=== PATIENT | male | born 1955 | race Caucasian/White ===

== ENCOUNTER 2020-03-23 15:20 | Outpatient (REF) | payer MEDICARE, OTHER, SELFPAY ==
[2020-03-23 16:39] LABS: MANUAL DIFF FLAG NO
[2020-03-23 16:41] LABS: Basophils Percent Auto 0.4 % (0-2); Eosinophils Absolute Auto 0.1 X10*3/uL (0.0-0.4); Eosinophils Percent Auto 0.9 % (0-4); Hematocrit 48.5 % (42-52); Hemoglobin 15.9 g/dl (14.0-18.0); Imm Gran Abs Auto 0.06 X10*3/uL (0.00-0.03); Imm Gran Pct Auto 0.6 % (0.0-0.4); Lymphocytes Absolute Auto 3.6 X10*3/uL (1.2-4.9); Mean Corpuscular HGB Conc 32.8 g/dl (31.0-36.0); Mean Corpuscular Hemoglobin 29.2 pg (27.0-33.0); Mean Corpuscular Volume 89.2 fL (80-98); Mean Platelet Volume 10.5 fL (9.4-12.4); Monocytes Absolute Auto 0.9 X10*3/uL (0.1-1.2); Monocytes Percent Auto 8.3 % (2-11); Neutrophils Absolute Auto 5.7 X10*3/uL (2.0-8.3); Neutrophils Percent Auto 54.8 % (45-73); Platelet Count 189 X10*3/uL (160-400); Red Blood Count 5.44 X10*6/uL (4.60-5.80); Red Cell Distribution Width 13.5 % (11.0-16.0); White Blood Count 10.4 X10*3/uL (4.8-10.8)
[2020-03-23 17:06] LABS: Alanine Aminotransferase 24 U/L (0-40); Albumin Level 4.4 g/dL (3.5-5.0); Alkaline Phosphatase 87 U/L (39-117); Amylase 63 U/L (28-100); Anion Gap 15 (12-20); Aspartate Amino Transferase 18 U/L (5-37); Bilirubin Direct 0.3 mg/dL (0.0-0.5); Blood Urea Nitrogen 22 mg/dL (9-16); Calcium 9.3 mg/dL (8.4-10.2); Carbon Dioxide 22 mmol/L (22-29); Chloride 106 mmol/L (96-108); Estimated Glomerular Filt Rate 48; Glucose Random 93 mg/dL (60-115); Lipase 59 U/L (8-78); Potassium 4.5 mmol/l (3.3-5.1); Sodium 138 mmol/L (135-145)
[2020-03-25 14:21] LABS: Immunoglobulin A 267 mg/dL (70-320)
[2020-03-27 23:56] LABS: Endomysial IgA Antibody Negative (Negative)
[2020-03-28 14:58] LABS: Transglutaminase Ab IgG 2 U/mL; Transglutaminase IgA 1 U/mL
[2020-03-29 16:22] LABS: Gliadin Deamidated IgA Ab 7 Units; Gliadin Deamidated IgG Ab 3 Units
== END 2020-03-23 15:21 | disposition home or self-care (01) ==
LOC: HO.LAB 15:20
PROVIDERS: PCP Internal Medicine; Visit Provider Internal Medicine
DX: R10.84 Generalized abdominal pain (principal); R19.4 Change in bowel habit; R63.4 Abnormal weight loss
CPT/HCPCS: 36415; 80048; 80076; 82150; 82784; 83516; 83690; 85025; 86255; 86256

== ENCOUNTER 2020-03-29 12:16 | Day surgery (SDC) | payer MEDICARE, OTHER, SELFPAY ==
[2020-03-29 12:30] VITALS: BP 140/80; PULSE 68; RESP 16; TEMP 36.8; O2SAT 97; BMI 33.0
--- NOTE | 2020-03-29 12:31 | HO.ANESPROP2 ---
HPI - Anesthesia Eval Consult details Narrative: 65 yo male patient here for EGD PMFSH Past Medical History Medical History (Updated 03/29/20 @ 13:13 by Lesia Jarrett) Arthritis Fusion of lumbosacral spine GERD (gastroesophageal reflux disease) Gout HTN (hypertension) Hyperlipemia Kidney stone Myocardial infarct Tubular adenoma Family History Family history of problems with anesthesia: No Surgical History Surgical History (Updated 03/29/20 @ 13:08 by Lesia Jarrett) H/O colonoscopy H/O lithotripsy H/O spinal fusion History of total left knee replacement History of Problems with Anesthesia: No Social History Social History Smoking Status: Never smoker Second Hand Smoke Exposure: No Use of substances other than those prescribed or required for medical reasons: No Advance Directives: No Advance Directives Information Provided: No Advance Directives on File: No Meds Allergies Allergy/AdvReac Type Severity Reaction Status Date / Time Ehlivga-Poi-Awm Reductase Allergy Intermediate MUSCLE Unverified 01/15/20 14:41 Inhibitor WEAKNESS [[id number] REDUCTASE INHIBITOR] STATINS Allergy Unknown Weakness Uncoded 03/29/20 12:38 Home Medications Medication Instructions Recorded Confirmed Type colchicine [Colcrys] 1 tab PO BID 03/29/20 03/29/20 History losartan 1 tab PO DAILY 03/29/20 03/29/20 History metoprolol succinate 1 tab PO DAILY 03/29/20 03/29/20 History Exam Exam Date and Time: March 29, 2020 1231 Height,Weight and Vital Signs: Height 6 ft 1 in Weight 113.398 kg Vital Signs Temp Pulse Resp BP Pulse Ox 03/29/20 12:30 98.2 F 68 16 140/80 H 97 Airway Mallampati Class: II TM Dist: >3cm Neck ROM: Full Heart: RRR Lungs: CTAB Assessment and Plan Assessment Anesthesia Assessment: Anesthesia Plan Discussed and Chart Reviewed Final Anesthetic Review NPO: Yes ASA Class: III Final Preanesthetic Review: No Changes in Pt Med Stat, Meds/Allgs Chart Reviewed, Consent Obtained/Reviewed and Anes Risks/Benef Reviewed Patient Risk: Low Procedure Risk: Low Anesthetic Plan Anesthetic Plan: MAC: Disposition: Standard PACU
[2020-03-29] MEDS: Lactated Ringers 1,000 ML 100 ML IVCONT (12:39)
[2020-03-29 14:13] VITALS: BP 110/55; PULSE 56; RESP 18; TEMP 36.2; O2SAT 96
--- NOTE | 2020-03-29 14:16 | PM.OP ---
Brief Operative Note Date of Service: 03/29/20 Pre-op diagnosis: Abdominal pain Post-op diagnosis: other (Gastritis) Procedure: EGD with biopsy Surgeon: Yang Romano Anesthesia: MAC Estimated blood loss (mL): 3.0 Pathology: other (A. Gastric antrum) Condition: stable Disposition: PACU
[2020-03-29 14:35] VITALS: BP 104/63; PULSE 52; RESP 16; TEMP 36.2; O2SAT 95
--- NOTE | 2020-03-29 14:57 | HO.POSTANES ---
Post Anesthesia Evaluation Post Anesthesia Evaluation Vital Signs: Vital Signs Temp Pulse Resp BP Pulse Ox 03/29/20 14:35 97.1 F 52 16 104/63 95 03/29/20 14:13 97.1 F 56 18 110/55 L 96 03/29/20 12:30 98.2 F 68 16 140/80 H 97 Anesthesia: Monitored Mental Status: Awake Pain Control: Satisfactory Nausea/Vomiting: None Hydration: Adequate Anesthesia-Related Issues: No Anes. Related Issues
--- NOTE | 2020-03-29 15:56 | OP_ITS ---
SURGEON: Yang Romano MD INDICATIONS: The patient presents for evaluation of abdominal pain. Full consent has been obtained from him for this, including risks of bleeding and perforation. PREOPERATIVE DIAGNOSIS: Abdominal pain. POSTOPERATIVE DIAGNOSIS: PROCEDURE PERFORMED: Esophagogastroduodenoscopy with biopsy. ESTIMATED BLOOD LOSS: COMPLICATIONS: ANESTHESIA: Monitored anesthesia care. ASSISTANTS: SPECIMENS: POSTOPERATIVE DIAGNOSES: Abdominal pain, antral gastritis. DESCRIPTION OF PROCEDURE: The patient was placed in the left lateral decubitus position. The Olympus video gastroscope was passed in the posterior oropharynx and upper esophagus under direct vision. The scope was passed slowly into the distal esophagus. The gastroesophageal junction appeared normal at 39 cm. There was no sign of any esophagitis nor Nicholson's esophagus. There was no appreciable hiatal hernia. The scope was advanced to the pylorus and duodenum cannulated to the descending portion. The duodenum including the bulb appeared normal without mass or ulceration. Scope was withdrawn back in the stomach. The gastric antrum had some areas of erythema and a chronic appearing gastritis, but no ulceration nor mass. There was good peristalsis. The scope was retroflexed visualizing the proximal stomach carefully, which appeared normal, without any sign of mass or ulceration. The scope was straightened. Biopsies were obtained from the gastric antrum. The scope was withdrawn back into the esophagus. The esophageal mucosa appeared normal. The scope was withdrawn from the patient. He tolerated the procedure well and was returned to recovery area in stable condition. IMPRESSION: Antral gastritis. PLAN: The results of the biopsy will be checked. I shall start him on omeprazole 20 mg daily to see if that gives him any symptomatic relief. However, the findings are relatively minimal and I tend to doubt they are causing his symptoms. He is scheduled for an abdominal ultrasound next week to check the gallbladder. Depending upon those results and his clinical course, we may need to proceed with a CAT scan of the abdomen for further evaluation. He was advised not to use any aspirin and NSAIDs. This has been discussed with his . MD KATHY Lozada/KAI / [phone]
== END 2020-03-29 23:59 | disposition home or self-care (01) ==
PROVIDERS: PCP Internal Medicine; Visit Provider Internal Medicine
PROC: 0DJ08ZZ Inspection of Upper Intestinal Tract, Via Natural or Artificial Opening Endoscopic (ICD-10-PCS; CPT 43235; principal; 2020-03-29 13:30)
DX: K29.70 Gastritis, unspecified, without bleeding (principal); R63.4 Abnormal weight loss; R19.4 Change in bowel habit; I10 Essential (primary) hypertension; Z79.899 Other long term (current) drug therapy
CPT/HCPCS: 43239; 88305; 88342

== ENCOUNTER 2020-03-30 08:42 | Outpatient (REF) | payer MEDICARE, OTHER, SELFPAY ==
--- NOTE | 2020-03-30 | US_ITS ---
EXAMINATION: US ABDOMEN COMPLETE CLINICAL INFORMATION: Abdominal pain. COMPARISON: CT abdomen and pelvis 04/25/2018. Renal ultrasound 04/25/2018. Ultrasound abdomen 03/28/2010. TECHNIQUE: Real-time imaging of the abdominal viscera. Technically difficult study secondary to bowel gas. FINDINGS: PANCREAS: Normal. ABDOMINAL AORTA: The proximal, mid, and distal segments are normal in caliber. INFERIOR VENA CAVA: Visualized portions are normal. LIVER: The right hepatic lobe is enlarged measuring 18.1 cm. The liver contour is normal. There is diffuse hepatic increased echogenicity. No focal hepatic lesion. There is no intrahepatic biliary duct dilatation seen. GALLBLADDER: Normal. The gallbladder is physiologically distended without evidence of stones, sludge, polyps, wall thickening or pericholecystic fluid. COMMON BILE DUCT: Normal in caliber measuring 0.4 cm in diameter. RIGHT KIDNEY: There is normal cortical thickness. No hydronephrosis or renal calculi. The kidney measures 11.7 cm in maximum dimension. There is an anechoic cyst with central septation in midpole measuring 3.0 x 2.6 x 2.7 cm. A second slightly larger cyst measures 3.3 x 3.0 x 3.4 cm in midpole. LEFT KIDNEY: There is normal cortical thickness. No hydronephrosis or renal calculi. The kidney measures 13.5 cm in maximum dimension. There is a septated anechoic cyst measuring 5.8 x 5.3 x 6.0 cm. SPLEEN: Normal. The spleen measures 11.8 cm in maximum dimension. FREE FLUID: None. US/US abdomen complete IMPRESSION: Bilateral septated renal cysts and a simple cyst midpole right kidney. No echogenic renal stones or hydronephrosis. Mild hepatomegaly with diffuse hepatic steatosis. Rest of the abdomen ultrasound is unremarkable.
== END 2020-03-30 08:43 | disposition home or self-care (01) ==
LOC: HO.US 08:42
PROVIDERS: PCP Internal Medicine; Visit Provider Internal Medicine
DX: R10.84 Generalized abdominal pain (principal)
CPT/HCPCS: 76700

== ENCOUNTER 2020-04-01 15:00 | Outpatient (REF) | payer MEDICARE, OTHER, SELFPAY ==
--- NOTE | 2020-04-01 15:06 | CT_ITS ---
EXAMINATION: CT ABDOMEN AND PELVIS WITH CONTRAST CLINICAL INFORMATION: Upper abdominal pain. COMPARISON: CT abdomen and pelvis 04/25/2018. TECHNIQUE: Multidetector volumetric images were obtained from the superior aspect of the liver through the pubic symphysis following administration 85 mL of Omnipaque 350 intravenous contrast. Sagittal and coronal reformatted images were obtained on the technologist's workstation. Oral contrast: No This CT examination was performed using dose optimization techniques as appropriate, variously including the following: *Automated exposure control *Adjustment of mA and/or kV according to patient size (this includes techniques or standardized protocols for targeted exams where dose is matched to indication/reason for exam; i.e. extremities or head) *Use of iterative reconstruction technique DLP: 654 mGy-cm FINDINGS: LUNG BASES: The visualized lung bases are unremarkable. LIVER, GALLBLADDER, AND BILIARY TREE: The liver is normal in size, shape, and attenuation. No focal hepatic lesion or biliary ductal dilatation is present. The gallbladder is unremarkable with no evidence of radiopaque gallstones, gallbladder wall thickening, or obvious pericholecystic inflammatory changes. PANCREAS: Unremarkable. SPLEEN: Unremarkable. ADRENAL GLANDS: Unremarkable. KIDNEYS AND URETERS: The kidneys are normal in size, shape, and attenuation. Bilateral benign simple cysts are present. No solid renal masses are seen. There is a nonobstructing stone present in the left renal pelvis measuring 9 x 4 x 7 mm in size. The stone measures 500 Hounsfield units and is 14 cm from the posterior axillary line. No hydronephrosis, hydroureter, or other calculi seen. At the time of the prior study, an obstructing proximal left ureteral calculus was present which has obviously resolved. One smaller intrarenal calculus was present previously which also, presumably, has increased in size now residing in the renal pelvis. BLADDER: Unremarkable. GASTROINTESTINAL TRACT: The small and large bowel are unremarkable. The appendix is not seen. ABDOMINAL WALL: No significant hernia is appreciated. LYMPH NODES: No retroperitoneal lymphadenopathy. VASCULAR: No aneurysm is seen. The main larger left renal vein is retroaortic. PELVIC VISCERA: Prostate and seminal vesicles appear normal. OSSEOUS STRUCTURES: Degenerative changes in the lumbosacral spine most marked at L3-L4. There is fixation with posterior pedicular screws at L5-S1 with a small anterolisthesis present. CT/CT abdomen pelvis w con IMPRESSION: 9 x 4 x 7 mm nonobstructing calculus left renal pelvis. Other incidental findings as described above.
[2020-04-01] MEDS: iohexoL 350 MG/ML 100 ML INFUS..BTL IV (17:05)
== END 2020-04-01 15:01 | disposition home or self-care (01) ==
LOC: HO.CT 15:00
PROVIDERS: PCP Internal Medicine; Visit Provider Internal Medicine
DX: R10.10 Upper abdominal pain, unspecified (principal)
CPT/HCPCS: 74177; Q9967

== ENCOUNTER → 2020-04-05 09:39 | Outpatient (BNVA) | payer MEDICARE, OTHER, SELFPAY | PROVIDERS: PCP Internal Medicine; Referring Provider Internal Medicine; Visit Provider Internal Medicine Cardiovascular Disease | DX: I25.10 Atherosclerotic heart disease of native coronary artery without angina pectoris (principal); E78.5 Hyperlipidemia, unspecified; Z95.5 Presence of coronary angioplasty implant and graft | CPT/HCPCS: 99212 ==

== ENCOUNTER 2020-04-14 11:59 | Outpatient (REF) | payer MEDICARE, OTHER, SELFPAY ==
[2020-04-14 12:35] LABS: MANUAL DIFF FLAG NO
[2020-04-14 12:36] LABS: Basophils Percent Auto 0.5 % (0-2); Eosinophils Absolute Auto 0.2 X10*3/uL (0.0-0.4); Eosinophils Percent Auto 2.6 % (0-4); Hematocrit 48.8 % (42-52); Hemoglobin 15.9 g/dl (14.0-18.0); Imm Gran Abs Auto 0.06 X10*3/uL (0.00-0.03); Imm Gran Pct Auto 0.8 % (0.0-0.4); Lymphocytes Absolute Auto 2.8 X10*3/uL (1.2-4.9); Mean Corpuscular HGB Conc 32.6 g/dl (31.0-36.0); Mean Corpuscular Hemoglobin 28.8 pg (27.0-33.0); Mean Corpuscular Volume 88.4 fL (80-98); Monocytes Absolute Auto 0.9 X10*3/uL (0.1-1.2); Monocytes Percent Auto 10.9 % (2-11); Neutrophils Absolute Auto 3.9 X10*3/uL (2.0-8.3); Neutrophils Percent Auto 49.2 % (45-73); Platelet Count 209 X10*3/uL (160-400); Red Blood Count 5.52 X10*6/uL (4.60-5.80); Red Cell Distribution Width 13.5 % (11.0-16.0); White Blood Count 7.8 X10*3/uL (4.8-10.8)
[2020-04-14 12:42] LABS: Glucose Urine UA NEG (NEG); Leukocyte Esterase Urine NEG (NEG); Nitrite Urine NEG (NEG); Specific Gravity - Urine 1.015 (1.005-1.025); Urine Blood 3+ (NEG); Urine Ketones NEG (NEG); Urine Protein NEG (NEG-TRACE)
[2020-04-14 12:44] LABS: Appearance Urine CLEAR; Color Urine YELLOW
[2020-04-14 14:00] LABS: Amylase 56 U/L (28-100); C Reactive Protein 0.72 mg/dL (< or = 0.50); Lipase 60 U/L (8-78)
[2020-04-14 14:22] LABS: Erythrocyte Sedimentation Rate 8 MM/HR (0-15)
== END 2020-04-14 12:00 | disposition home or self-care (01) ==
LOC: HO.LAB 11:59
PROVIDERS: PCP Internal Medicine; Visit Provider Internal Medicine
DX: R10.33 Periumbilical pain (principal)
CPT/HCPCS: 36415; 81001; 82150; 83690; 85025; 85652; 86140; 87086

== ENCOUNTER 2020-06-10 16:28 | Emergency (ER) | payer MEDICARE, OTHER, SELFPAY ==
[2020-06-10 16:55] VITALS: BP 199/103; PULSE 78; RESP 18; TEMP 36.8; O2SAT 97; BMI 34.9
--- NOTE | 2020-06-10 17:36 | ED.WOUNDLAC ---
HPI - Wound/Laceration General Chief Complaint: Wound/Laceration Stated Complaint: Laceration Time Seen by Provider: 06/10/20 17:35 Related Data Home Medications Medication Instructions Recorded Confirmed colchicine [Colcrys] 1 tab PO BID 03/29/20 04/05/20 losartan 1 tab PO DAILY 03/29/20 03/29/20 metoprolol succinate 1 tab PO DAILY 03/29/20 03/29/20 losartan 100 mg tablet 100 mg PO DAILY 04/05/20 04/05/20 pantoprazole 20 mg tablet,delayed 20 mg PO DAILY 04/05/20 04/05/20 release Previous Rx's Medication Instructions Recorded evolocumab 140 mg/mL subcutaneous 140 mg SUBCUT Q2W 90 Days #7 ml 05/04/20 syringe Allergies Allergy/AdvReac Type Severity Reaction Status Date / Time Njaxbep-Zha-Zde Reductase Allergy Intermediate MUSCLE Unverified 01/15/20 14:41 Inhibitor WEAKNESS [RTBOOMA-RFT-FIT REDUCTASE INHIBITOR] STATINS Allergy Unknown Weakness Uncoded 03/29/20 12:38 [facility] Past Medical History Medical History (Updated 04/05/20 @ 10:15 by Forrest Ya MD) Arthritis Fusion of lumbosacral spine GERD (gastroesophageal reflux disease) Gout HTN (hypertension) Hyperlipemia Kidney stone Myocardial infarct Tubular adenoma Surgical History (Updated 03/29/20 @ 13:08 by Lesia Jarrett) H/O colonoscopy H/O lithotripsy H/O spinal fusion History of total left knee replacement Social History Social History Smoking Status: Never smoker Second Hand Smoke Exposure: No Advance Directives: No Advance Directives Information Provided: Yes Physical Exam Vital Signs: Vital Signs: Last Vital Signs Temp 98.2 F 06/10/20 16:55 Pulse 78 06/10/20 16:55 Resp 18 06/10/20 16:55 BP 199/103 H 06/10/20 16:55 Pulse Ox 97 06/10/20 16:55 Body Mass Index 34.9 Discharge Plan Discharge Prescriptions: No Action Repatha Syringe 140 mg/mL syringe 140 mg subcut Q2W 90 Days Qty: 7 RF: 3 losartan 50 mg tablet 1 tab PO DAILY RF: 0 metoprolol succinate 50 mg tablet extended release 24 hr 1 tab PO DAILY RF: 0 colchicine [Colcrys] 0.6 mg tablet 1 tab PO BID RF: 0 losartan 100 mg tablet 100 mg PO DAILY RF: 0 pantoprazole 20 mg tablet,delayed release (DR/EC) 20 mg PO DAILY RF: 0
[2020-06-10] MEDS: Lidocaine HCl 1 % MPF 5 ML VIAL SUBCUT (18:13)
[2020-06-10] MEDS: Lidocaine HCl 1 % MPF 5 ML VIAL EPIDURAL (18:13)
--- NOTE | 2020-06-10 18:45 | ED.WOUNDLAC ---
HPI - Wound/Laceration General Chief Complaint: Wound/Laceration Stated Complaint: Laceration Time Seen by Provider: 06/10/20 17:35 History of Present Illness HPI narrative: Patient complains of laceration to left hand sustained at home an hour ago when he was using a grinding wheel, he also complains of decreased sensation in the bottom part of his thumb but otherwise is able to use the thumb fully, last tetanus shot was many years ago, he has no weakness in the hand Related Data Home Medications Medication Instructions Recorded Confirmed colchicine [Colcrys] 1 tab PO BID 03/29/20 04/05/20 losartan 1 tab PO DAILY 03/29/20 03/29/20 metoprolol succinate 1 tab PO DAILY 03/29/20 03/29/20 losartan 100 mg tablet 100 mg PO DAILY 04/05/20 04/05/20 pantoprazole 20 mg tablet,delayed 20 mg PO DAILY 04/05/20 04/05/20 release Previous Rx's Medication Instructions Recorded evolocumab 140 mg/mL subcutaneous 140 mg SUBCUT Q2W 90 Days #7 ml 05/04/20 syringe Allergies Allergy/AdvReac Type Severity Reaction Status Date / Time Gllwztr-Jmb-Deb Reductase Allergy Intermediate MUSCLE Unverified 01/15/20 14:41 Inhibitor WEAKNESS [[id number]-QNI-NDL REDUCTASE INHIBITOR] STATINS Allergy Unknown Weakness Uncoded 03/29/20 12:38 Review of Systems Review of Systems: Left hand laceration with loss of sensation at the base of the thumb Are no fever no chills no weakness, no head injury no neck injury no head pain no neck pain no joint pain PMFSH Past Medical History Source: nursing notes reviewed Medical History (Updated 06/10/20 @ 18:52 by DARLENE Lantigua) Arthritis Fusion of lumbosacral spine GERD (gastroesophageal reflux disease) Gout HTN (hypertension) Hyperlipemia Kidney stone Myocardial infarct Tubular adenoma Surgical History (Updated 03/29/20 @ 13:08 by Lesia Jarrett) H/O colonoscopy H/O lithotripsy H/O spinal fusion History of total left knee replacement Social History Social History Smoking Status: Never smoker Second Hand Smoke Exposure: No Advance Directives: No Advance Directives Information Provided: Yes Physical Exam Vital Signs: Vital Signs: Last Vital Signs Temp 98.2 F 06/10/20 16:55 Pulse 78 06/10/20 16:55 Resp 18 06/10/20 16:55 BP 199/103 H 06/10/20 16:55 Pulse Ox 97 06/10/20 16:55 Body Mass Index 34.9 General appearance no acute distress, A&O x3, relaxed and cooperative Head normocephalic atraumatic Neck is supple Respiratory no distress Extremities the left hand at the base of the medial aspect of the left proximal thumb has a 1.5 cm laceration, there is decreased sensation in the medial aspect of the base of the thumb from the MCP to the D IP but the pad of the thumb has normal sensation in all tendon function on extension and flexion is normal Other extremities are normal Course Course Course Narrative: 1.5 cm laceration at the base of the left thumb on the left hand is cleansed and irrigated with normal saline, no foreign body observed Anesthesia was 8 cc of 1% lidocaine Closure was 65.0 nylon sutures Bleeding was controlled and bandage was applied Discharge Plan Discharge Clinical Impression: Laceration of finger of left hand Qualifiers: Encounter type: initial encounter Finger: thumb Damage to nail status: without damage Foreign body presence: with foreign body Qualified Code(s): S61.022A - Laceration with foreign body of left thumb without damage to nail, initial encounter Patient Disposition: Home, Self-Care Additional Instructions: Stitches should be removed in 7-10 days Because there was decreased sensation in the left thumb we recommend you follow with hand doctor, we will give you a name Return any time for redness, pain, swelling, discharge from the wound, red stripe up the arm, any sign of infection or any worse condition or concerns You get a tetanus shot today Prescriptions: No Action Repatha Syringe 140 mg/mL syringe 140 mg subcut Q2W 90 Days Qty: 7 RF: 3 losartan 50 mg tablet 1 tab PO DAILY RF: 0 metoprolol succinate 50 mg tablet extended release 24 hr 1 tab PO DAILY RF: 0 colchicine [Colcrys] 0.6 mg tablet 1 tab PO BID RF: 0 losartan 100 mg tablet 100 mg PO DAILY RF: 0 pantoprazole 20 mg tablet,delayed release (DR/EC) 20 mg PO DAILY RF: 0
== END 2020-06-10 19:13 | disposition home or self-care (01) ==
PROVIDERS: Emergency Provider Emergency Medicine; PCP Internal Medicine
DX: S61.012A Laceration without foreign body of left thumb without damage to nail, initial encounter (principal); S60.312A Abrasion of left thumb, initial encounter; M79.642 Pain in left hand; W26.9XXA Contact with unspecified sharp object(s), initial encounter; Y93.9 Activity, unspecified; Y92.009 Unspecified place in unspecified non-institutional (private) residence as the place of occurrence of the external cause; Y99.9 Unspecified external cause status
CPT/HCPCS: 12001; 90471; 90715; 99283; 99284

== ENCOUNTER → 2020-07-26 12:07 | Outpatient (BNVA) | payer MEDICARE, OTHER, SELFPAY | PROVIDERS: PCP Internal Medicine; Visit Provider Internal Medicine Cardiovascular Disease | DX: E78.2 Mixed hyperlipidemia (principal); I10 Essential (primary) hypertension | CPT/HCPCS: 99212 ==

== ENCOUNTER 2020-08-06 00:57 | Emergency (ER) | payer MEDICARE, OTHER, SELFPAY ==
--- NOTE | 2020-08-06 01:44 | ED.GENADULT ---
HPI - General Adult General Chief complaint: General Medical Stated complaint: HIGH BLOOD PRESSURE Time Seen by Provider: 08/06/20 01:44 Source: patient Mode of arrival: ambulatory History of Present Illness HPI narrative: This is a 65-year-old male who presents with concerns regarding elevated blood pressure and ?pounding heart?. Patient states that he received 2 cortisone shots earlier today when it shoulder and the other in his hip and then while attempting to go to sleep states that he felt like his heart was pounding, got up took his blood pressure and noted that it was over 190 systolic and that his heart rate was 101. He denies experiencing any dizziness, shortness of breath, chest pain/palpitations, nausea but does endorse a very mild headache without any visual or speech deficits. Related Data Home Medications Medication Instructions Recorded Confirmed metoprolol succinate 1 tab PO DAILY 03/29/20 07/26/20 losartan 100 mg tablet 100 mg PO DAILY 04/05/20 07/26/20 colchicine 0.6 mg tablet 0.6 mg PO BID PRN 07/26/20 07/26/20 Previous Rx's Medication Instructions Recorded evolocumab 140 mg/mL subcutaneous 140 mg SUBCUT Q2W #2 ml 07/26/20 pen injector omega-3 fatty acids 1,000 mg 1,000 mg PO DAILY #30 cap 07/26/20 capsule Allergies Allergy/AdvReac Type Severity Reaction Status Date / Time Sbpsona-Qft-Wqg Reductase Allergy Intermediate MUSCLE Verified 08/06/20 01:57 Inhibitor WEAKNESS [IFCAMSS-SLQ-QCX REDUCTASE INHIBITOR] STATINS Allergy Unknown Weakness Uncoded 08/06/20 01:57 Review of Systems Review of Systems: Pertinent positives and negatives as stated in HPI 10 point review of systems is otherwise negative. [facility] Past Medical History Source: nursing notes reviewed Medical History Arthritis Fusion of lumbosacral spine GERD (gastroesophageal reflux disease) Gout HTN (hypertension) Hyperlipemia Kidney stone Myocardial infarct Tubular adenoma Surgical History H/O colonoscopy H/O lithotripsy H/O spinal fusion History of total left knee replacement Social History Social History Alcohol intake: current Alcohol intake frequency: a few times a month Smoking Status: Never smoker Second Hand Smoke Exposure: No Use of substances other than those prescribed or required for medical reasons: No Advance Directives: No Physical Exam Vital Signs: Vital Signs: Last Vital Signs Temp 98.5 F 08/06/20 01:48 Pulse 93 08/06/20 02:13 Resp 16 08/06/20 02:13 BP 169/84 H 08/06/20 02:13 Pulse Ox 95 08/06/20 02:13 Body Mass Index 34.9 VITAL SIGNS: Reviewed. GENERAL: Well developed, well nourished, in no acute distress. HEAD: Normocephalic/atraumatic EYES: PERRLA, EOMI OROPHARYNX: no oral lesions noted, posterior pharynx clear NECK: Supple, no adenopathy LUNGS: Normal breath sounds. SpO2<94> CARDIOVASCULAR: Regular rate and rhythm without noted murmurs, no JVD or lower extremity edema. ABDOMEN: Soft, non-tender, non-distended with bowel sounds. NEUROLOGIC: Alert and oriented x 4. Course Course Course Narrative: This is a 65-year-old male with history and clinical presentation consistent with elevated blood pressure secondary to steroid shots earlier today. However, will evaluate for evidence of end-organ injury due to elevated blood pressure. On review of all investigations are no acute findings other than evidence steroid exposure with a left shift and elevated glucose. Discussed with the patient bedside and he was discharged home in stable condition. Medical Decision Making Lab Data Result diagrams: 08/06/20 02:14 08/06/20 02:14 Labs: Lab Results 08/06/20 08/06/20 08/06/20 Range/Units 02:14 02:14 02:18 WBC 10.0 (4.8-10.8) X10*3/uL RBC 5.49 (4.60-5.80) X10*6/uL Hgb 15.5 (14.0-18.0) g/dl Hct 46.9 (42-52) % MCV 85.4 (80-98) fL MCH 28.2 (27.0-33.0) pg MCHC 33.0 (31.0-36.0) g/dl RDW 13.6 (11.0-16.0) % Plt Count 188 (160-400) X10*3/uL MPV 10.1 (9.4-12.4) fL Immature Gran % (Auto) 0.4 (0.0-0.4) % Neut % (Auto) 84.9 H (45-73) % Lymph % (Auto) 10.9 L (20-40) % Ida % (Auto) 3.7 (2-11) % Eos % (Auto) 0.0 (0-4) % Baso % (Auto) 0.1 (0-2) % Lymph # (Auto) 1.1 L (1.2-4.9) X10*3/uL Ida # (Auto) 0.4 (0.1-1.2) X10*3/uL Eos # (Auto) 0.0 (0.0-0.4) X10*3/uL Baso # (Auto) 0.0 (0.0-0.2) X10*3/uL Abs Immat Gran (auto) 0.04 H (0.00-0.03) X10*3/uL Absolute Neuts (auto) 8.5 H (2.0-8.3) X10*3/uL Absolute Nucleated RBC 0.000 (0.0-0.012) X10*3/uL Nucleated RBC % (auto) 0.0 (0.0-0.2) /100WBC Sodium 138 (135-145) mmol/L Potassium 4.5 (3.3-5.1) mmol/L Chloride 109 H (96-108) mmol/L Carbon Dioxide 20 L (22-29) mmol/L Anion Gap 14 (12-20) BUN 24 H (9-16) mg/dL Creatinine 1.36 (0.5-1.4) mg/dL Estim Creat Clear Calc 71.5 Estimated GFR 52 Random Glucose 230 H D (60-115) mg/dL Calcium 9.4 (8.4-10.2) mg/dL Total Bilirubin 0.4 (0.0-1.0) mg/dL AST 17 (5-37) U/L ALT 21 (0-40) U/L Alkaline Phosphatase 99 (39-117) U/L Total Protein 7.0 (6.5-8.0) g/dL Albumin 4.3 (3.5-5.0) g/dL Urine Color YELLOW Urine Appearance CLEAR Urine pH 6.0 (5.0-8.0) Ur Specific Tina 1.025 (1.005-1.025) Urine Protein NEG (NEG-TRACE) MG/DL Urine Glucose (UA) 500 H (NEG) MG/DL Urine Ketones NEG (NEG) MG/DL Urine Blood 1+ H (NEG) Urine Nitrite NEG (NEG) Ur Leukocyte Esterase NEG (NEG) Urine RBC 5-9 H (0) /HPF Urine WBC 0-2 (0-4) /HPF Ur Squamous Epith Cells TRACE /LPF Urine Bacteria TRACE /LPF Urine Mucus TRACE /LPF ECG Data Attestation: I personally reviewed and interpreted this ECG as follows: Prior ECG tracings: available for review (04/25/2018 no acute changes on comparison.) Interpretation: Normal sinus rhythm, HR-91, no evidence of acute ischemia, OH/QRS/QTC are within normal limits. Discharge Plan Discharge Clinical Impression: Hypertension Qualifiers: Hypertension type: other secondary hypertension Qualified Code(s): I15.8 - Other secondary hypertension Patient Disposition: Home, Self-Care Instructions: Hypertension (ED) Additional Instructions: Resume all home medications as prescribed. Follow-up with your primary care provider in the next 2-3 days for re-evaluation of your blood pressure. Do not hesitate to return to the emergency department should you feel any acute worsening of symptoms. Prescriptions: No Action metoprolol succinate 50 mg tablet extended release 24 hr 1 tab PO DAILY RF: 0 colchicine [Colcrys] 0.6 mg tablet 0.6 mg PO BID PRNRF: 0 losartan 100 mg tablet 100 mg PO DAILY RF: 0 omega-3 fatty acids [Fish Oil Concentrate] 1,000 mg capsule 1,000 mg PO DAILY Qty: 30 RF: 3 Repatha SureClick 140 mg/mL pen injector 140 mg subcut Q2W Qty: 2 RF: 5 Referrals: Casimiro Thompson MD [Primary Care Provider] - 2 days (Re-evaluation after seen for elevated blood pressure after receiving cortisone shots.)
--- NOTE | 2020-08-06 01:46 | ECG_ITS ---
Test Reason : HTN Blood Pressure : / mmHG Vent. Rate : 091 BPM Atrial Rate : 091 BPM P-R Int : 186 ms QRS Dur : 094 ms QT Int : 372 ms P-R-T Axes : 033 001 019 degrees QTc Int : 457 ms Normal sinus rhythm Possible Inferior infarct , age undetermined Abnormal ECG When compared with ECG of 25-APR-2018 11:48, No significant changes seen Referred By: Gaviota Reno Electronically Signed By:NEGAR OCONNOR
[2020-08-06 01:48] VITALS: BP 161/79; PULSE 92; RESP 18; TEMP 36.9; O2SAT 94; BMI 34.9
[2020-08-06 02:13] VITALS: BP 169/84; PULSE 93; RESP 16; O2SAT 95
[2020-08-06 02:18] LABS: MANUAL DIFF FLAG NO
[2020-08-06 02:22] LABS: Basophils Percent Auto 0.1 % (0-2); Hematocrit 46.9 % (42-52); Hemoglobin 15.5 g/dl (14.0-18.0); Imm Gran Abs Auto 0.04 X10*3/uL (0.00-0.03); Imm Gran Pct Auto 0.4 % (0.0-0.4); Lymphocytes Absolute Auto 1.1 X10*3/uL (1.2-4.9); Lymphocytes Percent Auto 10.9 % (20-40); Mean Corpuscular Hemoglobin 28.2 pg (27.0-33.0); Mean Corpuscular Volume 85.4 fL (80-98); Mean Platelet Volume 10.1 fL (9.4-12.4); Monocytes Absolute Auto 0.4 X10*3/uL (0.1-1.2); Monocytes Percent Auto 3.7 % (2-11); Neutrophils Absolute Auto 8.5 X10*3/uL (2.0-8.3); Neutrophils Percent Auto 84.9 % (45-73); Platelet Count 188 X10*3/uL (160-400); Red Blood Count 5.49 X10*6/uL (4.60-5.80); Red Cell Distribution Width 13.6 % (11.0-16.0)
[2020-08-06 02:28] LABS: Glucose Urine UA 500 MG/DL (NEG); Leukocyte Esterase Urine NEG (NEG); Nitrite Urine NEG (NEG); Specific Gravity - Urine 1.025 (1.005-1.025); Urine Blood 1+ (NEG); Urine Ketones NEG (NEG); Urine Protein NEG (NEG-TRACE)
[2020-08-06 02:31] LABS: Appearance Urine CLEAR; Color Urine YELLOW
[2020-08-06 02:41] LABS: Bacteria Urine TRACE /LPF; Mucus Urine TRACE /LPF; Squamous Epithelial Cell Urine TRACE /LPF; WBC Urine 0-2 /HPF (0-4)
[2020-08-06 02:46] LABS: Alanine Aminotransferase 21 U/L (0-40); Albumin Level 4.3 g/dL (3.5-5.0); Alkaline Phosphatase 99 U/L (39-117); Anion Gap 14 (12-20); Aspartate Amino Transferase 17 U/L (5-37); Bilirubin Total 0.4 mg/dL (0.0-1.0); Blood Urea Nitrogen 24 mg/dL (9-16); Calcium 9.4 mg/dL (8.4-10.2); Carbon Dioxide 20 mmol/L (22-29); Chloride 109 mmol/L (96-108); Creatinine Clr Calc Pharmacy 71.5; Estimated Glomerular Filt Rate 52; Glucose Random 230 mg/dL (60-115); Potassium 4.5 mmol/L (3.3-5.1); Sodium 138 mmol/L (135-145)
[2020-08-06 03:18] VITALS: BP 148/77; PULSE 86; RESP 16; O2SAT 94
[2020-08-06] MEDS: Acetaminophen 325 MG TABLET 975 MG PO (03:20)
== END 2020-08-06 03:23 | disposition home or self-care (01) ==
PROVIDERS: Emergency Provider Student in an Organized Health Care Education/Training Program; PCP Internal Medicine
DX: I15.8 Other secondary hypertension (principal); T38.0X5A Adverse effect of glucocorticoids and synthetic analogues, initial encounter; Y92.019 Unspecified place in single-family (private) house as the place of occurrence of the external cause; E78.5 Hyperlipidemia, unspecified; Z87.442 Personal history of urinary calculi
CPT/HCPCS: 36415; 80053; 81001; 85025; 93005; 99283; 99284

== ENCOUNTER 2020-09-14 14:49 | Emergency (ER) | payer MEDICARE, OTHER, SELFPAY ==
--- NOTE | ~2020-09-14 | XR_ITS ---
EXAMINATION: XR CHEST CLINICAL INFORMATION: Chest pain COMPARISON: Previous chest x-ray October 2016 TECHNIQUE: Frontal view of the chest was obtained. FINDINGS: The cardiac and mediastinal contours are stable.. Lungs are clear. There is no pleural effusion or pneumothorax. There are degenerative changes of the spine. XR/XR chest 1V IMPRESSION: No evidence for acute disease in the chest.
--- NOTE | 2020-09-14 14:57 | ECG_ITS ---
Test Reason : DIZZNESS Blood Pressure : / mmHG Vent. Rate : 102 BPM Atrial Rate : 102 BPM P-R Int : 178 ms QRS Dur : 092 ms QT Int : 332 ms P-R-T Axes : 013 008 006 degrees QTc Int : 432 ms Sinus tachycardia Possible Left atrial enlargement Inferior infarct (cited on or before 06-AUG-2020) Abnormal ECG When compared with ECG of 06-AUG-2020 02:04, No significant change was found Referred By: Generic ED Physician Electronically Signed By:DOMINGA ALFORD MD
[2020-09-14 15:10] VITALS: BP 125/83; PULSE 115; RESP 18; TEMP 36.4; O2SAT 96; BMI 34.2
[2020-09-14 15:41] LABS: MANUAL DIFF FLAG NO
[2020-09-14 15:42] LABS: Basophils Percent Auto 0.4 % (0-2); Eosinophils Absolute Auto 0.1 X10*3/uL (0.0-0.4); Hematocrit 48.8 % (42-52); Imm Gran Abs Auto 0.13 X10*3/uL (0.00-0.03); Imm Gran Pct Auto 1.4 % (0.0-0.4); Lymphocytes Absolute Auto 2.6 X10*3/uL (1.2-4.9); Lymphocytes Percent Auto 26.8 % (20-40); Mean Corpuscular HGB Conc 32.8 g/dl (31.0-36.0); Mean Corpuscular Hemoglobin 28.5 pg (27.0-33.0); Mean Platelet Volume 9.9 fL (9.4-12.4); Monocytes Absolute Auto 1.1 X10*3/uL (0.1-1.2); Monocytes Percent Auto 11.4 % (2-11); Neutrophils Absolute Auto 5.7 X10*3/uL (2.0-8.3); Platelet Count 155 X10*3/uL (160-400); Red Blood Count 5.61 X10*6/uL (4.60-5.80); Red Cell Distribution Width 14.4 % (11.0-16.0); White Blood Count 9.6 X10*3/uL (4.8-10.8)
[2020-09-14 16:04] LABS: Anion Gap 15 (12-20); Blood Urea Nitrogen 28 mg/dL (9-16); Carbon Dioxide 21 mmol/L (22-29); Chloride 107 mmol/L (96-108); Creatinine Clr Calc Pharmacy 71.4; Estimated Glomerular Filt Rate 53; Glucose Random 98 mg/dL (60-115); Sodium 139 mmol/L (135-145)
[2020-09-14 16:11] LABS: Troponin-I High Sensitivity < 3.5 ng/L (<3.5-35.0)
--- NOTE | 2020-09-14 19:11 | ED.CHESTPAIN ---
HPI - Chest Pain General Chief Complaint: Chest Pain Stated Complaint: HIGH AND LOW BP RAPID HEART BEAT Time Seen by Provider: 09/14/20 19:11 Source: patient Mode of arrival: ambulatory Limitations: no limitations History of Present Illness HPI narrative: This is a 65-year-old male with history of hypertension and coronary artery disease came in for evaluation of fluctuation of his blood pressure for the past 3 days and also complaining of lightheadedness. Patient has been taking 100 mg of losartan and 50 mg of metoprolol for the past 2 months to control his blood pressure, lately patient been having lightheadedness, complained for the past 3 days intermittent left armpit pain, pain is confined to the armpit pain is not exertional, not associated with shortness of breath, nothing make it better, nothing make it worse. Patient held his blood pressure medication for 1 day and next day blood pressure went up to 150/95 which is high for the patient (patient normally runs in the 120s above 80s). Patient came in today for evaluation of that matter. Patient reportedly has been drinking enough hydration throughout the day. Related Data Home Medications Medication Instructions Recorded Confirmed metoprolol succinate 1 tab PO DAILY 03/29/20 07/26/20 losartan 100 mg tablet 100 mg PO DAILY 04/05/20 07/26/20 colchicine 0.6 mg tablet 0.6 mg PO BID PRN 07/26/20 07/26/20 Previous Rx's Medication Instructions Recorded evolocumab 140 mg/mL subcutaneous 140 mg SUBCUT Q2W #2 ml 07/26/20 pen injector omega-3 fatty acids 1,000 mg 1,000 mg PO DAILY #30 cap 07/26/20 capsule Allergies Allergy/AdvReac Type Severity Reaction Status Date / Time Hhrgsdu-Wcd-Qha Reductase Allergy Intermediate MUSCLE Verified 09/14/20 15:10 Inhibitor WEAKNESS [[id number] REDUCTASE INHIBITOR] STATINS Allergy Unknown Weakness Uncoded 08/06/20 01:57 Review of Systems Review of Systems: All other systems are reviewed and are negative Constitutional: Reports as per HPI and Reports no additional constitutional complaints Eyes: Reports as per HPI and Reports no additional eye complaints Reports system reviewed and no additional complaints, except as documented Cardiovascular: Reports as per HPI and Reports no additional cardiovascular complaints Respiratory: Reports as per HPI and Reports no additional respiratory complaints Gastrointestinal: Reports as per HPI and Reports no additional gastrointestinal complaints Genitourinary: Reports no additional female genitourinary complaints Musculoskeletal: Reports no additional musculoskeletal complaints Skin/Breast: Reports system reviewed and no additional complaints, except as docu Psychiatric: Reports no additional psychiatric complaints Endocrine: Reports no additional endocrine complaints Hematologic/Lymphatic: Reports no additional hematologic/lymphatic complaints Allergic/Immunologic: Reports no additional allergic/immunologic complaints Reports system reviewed and no additional complaints, except as documented and Reports Abnormal speech present [facility] Past Medical History Medical History Arthritis Fusion of lumbosacral spine GERD (gastroesophageal reflux disease) Gout HTN (hypertension) Hyperlipemia Kidney stone Myocardial infarct Tubular adenoma Surgical History H/O colonoscopy H/O lithotripsy H/O spinal fusion History of total left knee replacement Social History Social History Alcohol intake: current Alcohol intake frequency: a few times a month Smoking Status: Never smoker Second Hand Smoke Exposure: No Advance Directives: No Advance Directives Information Provided: Yes Physical Exam Vital Signs: Vital Signs: Last Vital Signs Temp 97.5 F 09/14/20 15:10 Pulse 115 H 09/14/20 15:10 Resp 18 09/14/20 15:10 BP 125/83 09/14/20 15:10 Pulse Ox 96 09/14/20 15:10 Body Mass Index 34.2 Vital signs have been reviewed as appeared to be correct. Blood pressure normal. Heart rate tachycardia. Respiration rate normal. Temperature normal. Oxygen saturation normal. Appearance: Alert. Oriented X3. No acute distress. Head: Normal external exam. Normocephalic. Atraumatic. No Rico signs noted. No raccoon eyes noted Eyes: PERRLA. EOMI. Conjunctiva and sclera normal. Eyelids normal. ENT: TM's Normal. Pharynx normal. Uvula midline. Moist mucous membranes. No trismus noted. No drooling noted. No muffled voice noted. Neck: Normal inspection. Neck supple. FROM. No adenopathy. Thyroid Normal. No meningeal signs. No neck mass noted. CVS: Normal heart rate and rhythm. Heart sound normal. No murmurs noted. Pulses normal throughout. Respiratory: No respiratory distress. Painless inspiration. Breath sounds normal. No wheezes/rales/rhonchi noted. Chest nontender. No accessory muscle usage noted or decreased air movement noted. Abdomen: Soft and nontender. Bowel sounds normal in all 4 quadrants. No distention noted. No organomegaly noted. No visible injury noted. Back: No CVA tenderness. Full range of motion noted. Skin: Skin warm and dry. Normal skin color. Normal skin turgor. No rashes/lesions/lacerations noted. Extremities: No lower extremity edema. Extremities exhibit normal range of motion. Extremities nontender. Neuro: Oriented X 3. No motor deficit. No sensory deficit. Reflexes normal. Course Course Course Narrative: Assessment and plan. 65-year-old male with history of hypertension taking losartan 100 mg daily and 50 mg of labetalol, patient lately been finding his blood pressure in the low side 100 over 70s at home (patient has a that his blood pressure machine has been very accurate), patient has been complaining of lightheadedness and generalized weakness, left armpit pain for the past 3 days his EKG showing no ischemic change and his high sensitive troponin is unremarkable. Labs were unremarkable. Chest x-ray is unremarkable. Patient was reassured with the normal labs/EKG/chest x-ray. Patient was instructed not to self manage his blood pressure and let his primary doctor to control his medication. Patient was advised to cut losartan in 50 mg instead of 100 and labetalol of 25 mg instead of 50 mg, and keep monitoring his blood pressure and keep p.o. hydration and report blood pressure records to his PCP. MDM - Chest Pain Lab Data Attestation: I reviewed the patient's lab results. Result diagrams: 09/14/20 15:35 09/14/20 15:35 Labs: Lab Results 09/14/20 09/14/20 09/14/20 Range/Units 15:35 15:35 15:35 WBC 9.6 (4.8-10.8) X10*3/uL RBC 5.61 (4.60-5.80) X10*6/uL Hgb 16.0 (14.0-18.0) g/dl Hct 48.8 (42-52) % MCV 87.0 (80-98) fL MCH 28.5 (27.0-33.0) pg MCHC 32.8 (31.0-36.0) g/dl RDW 14.4 (11.0-16.0) % Plt Count 155 L (160-400) X10*3/uL MPV 9.9 (9.4-12.4) fL Immature Gran % (Auto) 1.4 H (0.0-0.4) % Neut % (Auto) 59.0 (45-73) % Lymph % (Auto) 26.8 (20-40) % [place] % (Auto) 11.4 H (2-11) % Eos % (Auto) 1.0 (0-4) % Baso % (Auto) 0.4 (0-2) % Lymph # (Auto) 2.6 (1.2-4.9) X10*3/uL [place] # (Auto) 1.1 (0.1-1.2) X10*3/uL Eos # (Auto) 0.1 (0.0-0.4) X10*3/uL Baso # (Auto) 0.0 (0.0-0.2) X10*3/uL Abs Immat Gran (auto) 0.13 H (0.00-0.03) X10*3/uL Absolute Neuts (auto) 5.7 (2.0-8.3) X10*3/uL Absolute Nucleated RBC 0.000 (0.0-0.012) X10*3/uL Nucleated RBC % (auto) 0.0 (0.0-0.2) /100WBC Hold Blue Top SEE NOTE Sodium 139 (135-145) mmol/L Potassium 4.0 (3.3-5.1) mmol/L Chloride 107 (96-108) mmol/L Carbon Dioxide 21 L (22-29) mmol/L Anion Gap 15 (12-20) BUN 28 H (9-16) mg/dL Creatinine 1.35 (0.5-1.4) mg/dL Estim Creat Clear Calc 71.4 Estimated GFR 53 Random Glucose 98 D (60-115) mg/dL Calcium 9.0 (8.4-10.2) mg/dL Troponin I High Sens (<3.5-35.0) ng/L 09/14/20 Range/Units 15:35 WBC (4.8-10.8) X10*3/uL RBC (4.60-5.80) X10*6/uL Hgb (14.0-18.0) g/dl Hct (42-52) % MCV (80-98) fL MCH (27.0-33.0) pg MCHC (31.0-36.0) g/dl RDW (11.0-16.0) % Plt Count (160-400) X10*3/uL MPV (9.4-12.4) fL Immature Gran % (Auto) (0.0-0.4) % Neut % (Auto) (45-73) % Lymph % (Auto) (20-40) % [place] % (Auto) (2-11) % Eos % (Auto) (0-4) % Baso % (Auto) (0-2) % Lymph # (Auto) (1.2-4.9) X10*3/uL [place] # (Auto) (0.1-1.2) X10*3/uL Eos # (Auto) (0.0-0.4) X10*3/uL Baso # (Auto) (0.0-0.2) X10*3/uL Abs Immat Gran (auto) (0.00-0.03) X10*3/uL Absolute Neuts (auto) (2.0-8.3) X10*3/uL Absolute Nucleated RBC (0.0-0.012) X10*3/uL Nucleated RBC % (auto) (0.0-0.2) /100WBC Hold Blue Top Sodium (135-145) mmol/L Potassium (3.3-5.1) mmol/L Chloride (96-108) mmol/L Carbon Dioxide (22-29) mmol/L Anion Gap (12-20) BUN (9-16) mg/dL Creatinine (0.5-1.4) mg/dL Estim Creat Clear Calc Estimated GFR Random Glucose (60-115) mg/dL Calcium (8.4-10.2) mg/dL Troponin I High Sens < 3.5 (<3.5-35.0) ng/L Imaging Data Chest x-ray: Radiologist's impression: no evidence for acute disease in the chest. ECG Data ECG #1: Interpretation: Sinus tachycardia at 102 beats per minutes, normal axis deviation, normal intervals, Q-waves in leadIII. Discharge Plan Discharge Clinical Impression: Hypertension Qualifiers: Hypertension type: essential hypertension Qualified Code(s): I10 - Essential (primary) hypertension Patient Disposition: Home, Self-Care Instructions: Hypertension (ED) Additional Instructions: Cut losartan to 50 mg a day instead of 100 mg. Cot metoprolol to 25 mg a day instead of 50 mg a day. Keep recording your blood pressure readings and report them to your PCP. Prescriptions: No Action metoprolol succinate 50 mg tablet extended release 24 hr 1 tab PO DAILY RF: 0 colchicine [Colcrys] 0.6 mg tablet 0.6 mg PO BID PRNRF: 0 losartan 100 mg tablet 100 mg PO DAILY RF: 0 omega-3 fatty acids [Fish Oil Concentrate] 1,000 mg capsule 1,000 mg PO DAILY Qty: 30 RF: 3 Repatha SureClick 140 mg/mL pen injector 140 mg subcut Q2W Qty: 2 RF: 5 Referrals: Casimiro Thompson MD [Primary Care Provider] - 2 days
== END 2020-09-14 19:45 | disposition home or self-care (01) ==
PROVIDERS: Emergency Provider Emergency Medicine; PCP Internal Medicine
DX: I10 Essential (primary) hypertension (principal); R00.0 Tachycardia, unspecified; R42 Dizziness and giddiness; E78.5 Hyperlipidemia, unspecified
CPT/HCPCS: 36415; 71045; 80048; 84484; 85025; 93005; 99283

== ENCOUNTER → 2020-11-24 08:58 | Outpatient (BNVA) | payer MEDICARE, OTHER, SELFPAY | PROVIDERS: PCP Internal Medicine; Visit Provider Internal Medicine Cardiovascular Disease | DX: I10 Essential (primary) hypertension (principal); R06.00 Dyspnea, unspecified; E78.2 Mixed hyperlipidemia | CPT/HCPCS: 99212 ==

== ENCOUNTER 2020-12-30 10:06 | Outpatient (REF) | payer MEDICARE, OTHER, SELFPAY ==
[2020-12-30 10:56] LABS: Hematocrit 48.6 % (42-52); Hemoglobin 15.9 g/dl (14.0-18.0); Mean Corpuscular HGB Conc 32.7 g/dl (31.0-36.0); Mean Corpuscular Hemoglobin 29.7 pg (27.0-33.0); Mean Corpuscular Volume 90.7 fL (80-98); Mean Platelet Volume 10.3 fL (9.4-12.4); Platelet Count 215 X10*3/uL (160-400); Red Blood Count 5.36 X10*6/uL (4.60-5.80); Red Cell Distribution Width 13.2 % (11.0-16.0); White Blood Count 9.1 X10*3/uL (4.8-10.8)
[2020-12-30 11:03] LABS: Prothrombin Time 11.8 SEC (9.9-13.0)
[2020-12-30 11:19] LABS: Anion Gap 13 (12-20); Blood Urea Nitrogen 26 mg/dL (9-16); Carbon Dioxide 25 mmol/L (22-29); Chloride 107 mmol/L (96-108); Cholesterol 160 mg/dL; Estimated Glomerular Filt Rate > 60; Glucose Random 93 mg/dL (60-115); HDL Cholesterol 37 mg/dL; LDL Cholesterol Calculated 89 mg/dl; Potassium 4.8 mmol/L (3.3-5.1); Sodium 140 mmol/L (135-145); Triglycerides 170 mg/dL
== END 2020-12-30 10:07 | disposition home or self-care (01) ==
LOC: HO.LAB 10:06
PROVIDERS: PCP Internal Medicine; Visit Provider Internal Medicine Cardiovascular Disease
DX: R06.00 Dyspnea, unspecified (principal); E78.2 Mixed hyperlipidemia
CPT/HCPCS: 36415; 80048; 80061; 85027; 85610

== ENCOUNTER → 2021-01-24 10:43 | Outpatient (BNVA) | payer MEDICARE, OTHER, SELFPAY | PROVIDERS: PCP Internal Medicine; Referring Provider Internal Medicine; Visit Provider Internal Medicine Cardiovascular Disease | DX: I20.8 Other forms of angina pectoris (principal); Z98.61 Coronary angioplasty status | CPT/HCPCS: 99212 ==

== ENCOUNTER 2021-02-25 10:09 | Outpatient (REF) | payer MEDICARE, OTHER, SELFPAY ==
[2021-02-25 12:10] LABS: Alanine Aminotransferase 25 U/L (0-40); Alkaline Phosphatase 88 U/L (39-117); Amylase 76 U/L (28-100); Aspartate Amino Transferase 15 U/L (5-37); Bilirubin Direct 0.4 mg/dL (0.0-0.5); Bilirubin Total 1.2 mg/dL (0.0-1.0); Blood Urea Nitrogen 31 mg/dL (9-16); Estimated Glomerular Filt Rate 47; Lipase 69 U/L (8-78); Total Protein 6.6 g/dL (6.5-8.0)
== END 2021-02-25 10:10 | disposition home or self-care (01) ==
LOC: HO.LAB 10:09
PROVIDERS: PCP Internal Medicine; Visit Provider Internal Medicine
DX: R10.84 Generalized abdominal pain (principal)
CPT/HCPCS: 36415; 80076; 82150; 82565; 83690; 84520

== ENCOUNTER 2021-03-02 06:22 | Outpatient (REF) | payer MEDICARE, OTHER, SELFPAY ==
--- NOTE | ~2021-03-02 | CT_ITS ---
EXAMINATION: CT ABDOMEN AND PELVIS WITH CONTRAST CLINICAL INFORMATION: Abdominal pain COMPARISON: 04/01/2020 TECHNIQUE: Multidetector volumetric images were obtained from the superior aspect of the liver through the pubic symphysis following administration 85 mL of Omnipaque 350 intravenous contrast. Sagittal and coronal reformatted images were obtained on the technologist's workstation. Oral contrast: No This CT examination was performed using dose optimization techniques as appropriate, variously including the following: *Automated exposure control *Adjustment of mA and/or kV according to patient size (this includes techniques or standardized protocols for targeted exams where dose is matched to indication/reason for exam; i.e. extremities or head) *Use of iterative reconstruction technique DLP: 664 mGy-cm FINDINGS: LUNG BASES: Minimal left basilar atelectasis. Visualized cardiac structures are unremarkable. LIVER, GALLBLADDER, AND BILIARY TREE: The liver is normal in size, shape, and attenuation. No focal hepatic lesion or biliary ductal dilatation is present. The gallbladder is unremarkable with no evidence of radiopaque gallstones, gallbladder wall thickening, or obvious pericholecystic inflammatory changes. PANCREAS: Unremarkable. SPLEEN: Unremarkable. ADRENAL GLANDS: Unremarkable. KIDNEYS AND URETERS: The kidneys are normal in size, shape, and attenuation. No hydronephrosis or hydroureter. There is a 1.2 x 0.4 cm calculus in the left renal pelvis. This measures 530 Hounsfield units and is positioned 14.5 cm from the posterior axillary line. This is in a similar position to the previous CT. There are multiple bilateral simple renal cysts, which are similar to prior. The largest is seen exophytic at the midpole of the left kidney measuring 5.6 cm. No follow-up imaging recommended. BLADDER: Unremarkable. GASTROINTESTINAL TRACT: The stomach is unremarkable. Normal caliber of the small bowel. There is no obstruction. No colonic wall thickening or inflammatory change. Scattered diverticulosis without diverticulitis. No free air or free fluid. ABDOMINAL WALL: No significant hernia is appreciated. LYMPH NODES: Normal. VASCULAR: Normal caliber aorta with mild atherosclerotic calcification. Circumaortic left renal vein. PELVIC VISCERA: The prostate and seminal vesicles are unremarkable. OSSEOUS STRUCTURES: No acute or suspicious osseous abnormality. Degenerative changes of the spine which are greatest at L3-L4. Posterior fusion hardware at L5-S1. CT/CT abdomen pelvis w con IMPRESSION: No acute findings of the abdomen or pelvis. Nonobstructing calculus in the left renal pelvis, similar to prior positioning.
[2021-03-02] MEDS: iohexoL 350 MG/ML 100 ML INFUS..BTL IV (09:57)
[2021-03-02] MEDS: Barium Sulfate Oral (Berry) 450 ML ORAL.SUSP 900 ML PO (11:13)
== END 2021-03-02 06:23 | disposition home or self-care (01) ==
LOC: HO.CT 06:22
PROVIDERS: Visit Provider Internal Medicine
DX: R10.84 Generalized abdominal pain (principal)
CPT/HCPCS: 74177; Q9967

== ENCOUNTER 2021-04-05 07:23 | Outpatient (REF) | payer MEDICARE, OTHER, SELFPAY | END 2021-04-05 07:24 | disposition home or self-care (01) | LOC: HO.LAB 07:23 | PROVIDERS: PCP Internal Medicine; Visit Provider Internal Medicine | DX: Z20.822 Contact with and (suspected) exposure to COVID-19 (principal) | CPT/HCPCS: C9803; U0003; U0005 ==

== ENCOUNTER 2021-04-11 08:12 | Outpatient (REF) | payer MEDICARE, OTHER, SELFPAY ==
[2021-04-11 08:50] LABS: COVID-19 Test Negative (Negative); IDNOW Serial# 16C4AD1C
== END 2021-04-11 08:13 | disposition home or self-care (01) ==
LOC: HO.LAB 08:12
PROVIDERS: Visit Provider Internal Medicine
DX: Z20.822 Contact with and (suspected) exposure to COVID-19 (principal)
CPT/HCPCS: 36415; 87635; C9803

== ENCOUNTER 2021-04-27 06:35 | Outpatient (REF) | payer MEDICARE, OTHER, SELFPAY ==
[2021-04-27 06:59] LABS: MANUAL DIFF FLAG NO
[2021-04-27 07:07] LABS: Basophils Percent Auto 0.4 % (0-2); Eosinophils Absolute Auto 0.2 X10*3/uL (0.0-0.4); Eosinophils Percent Auto 2.4 % (0-4); Hematocrit 50.6 % (42.0-52.0); Hemoglobin 16.2 g/dl (14.0-18.0); Imm Gran Abs Auto 0.07 X10*3/uL (0.00-0.03); Imm Gran Pct Auto 0.8 % (0.0-0.4); Lymphocytes Percent Auto 35.3 % (20-40); Mean Corpuscular Hemoglobin 28.1 pg (27.0-33.0); Mean Corpuscular Volume 87.8 fL (80.0-98.0); Monocytes Absolute Auto 0.7 X10*3/uL (0.1-1.2); Monocytes Percent Auto 8.1 % (2-11); Neutrophils Absolute Auto 4.5 x10*3/uL (2.0-8.3); Platelet Count 181 X10*3/uL (160-400); Red Blood Count 5.76 X10*6/uL (4.60-5.80); Red Cell Distribution Width 14.2 % (11.0-16.0); White Blood Count 8.5 X10*3/uL (4.8-10.8)
[2021-04-27 07:33] LABS: Alanine Aminotransferase 31 U/L (0-40); Albumin Level 4.3 g/dL (3.5-5.0); Alkaline Phosphatase 84 U/L (39-117); Anion Gap 13 (12-20); Aspartate Amino Transferase 21 U/L (5-37); Bilirubin Total 1.4 mg/dL (0.0-1.0); Blood Urea Nitrogen 17 mg/dL (9-16); Calcium 9.8 mg/dL (8.4-10.2); Carbon Dioxide 26 mmol/L (22-29); Chloride 106 mmol/L (96-108); Cholesterol 117 mg/dL; Estimated Glomerular Filt Rate 53; Glucose Random 96 mg/dL (60-115); HDL Cholesterol 37 mg/dL; LDL Cholesterol Calculated 46 mg/dl; Potassium 4.6 mmol/L (3.3-5.1); Sodium 140 mmol/L (135-145); Total Protein 6.7 g/dL (6.5-8.0); Triglycerides 173 mg/dL
[2021-04-27 07:45] LABS: Appearance Urine CLEAR; Color Urine YELLOW; Glucose Urine UA NEG (NEG); Leukocyte Esterase Urine NEG (NEG); Nitrite Urine NEG (NEG); Specific Gravity - Urine 1.025 (1.005-1.025); Urine Blood TRACE (NEG); Urine Ketones NEG (NEG); Urine Protein NEG (NEG-TRACE)
[2021-04-27 07:55] LABS: RBC Urine 0-2 /HPF (0); WBC Urine 0-2 /HPF (0-4)
[2021-04-27 07:56] LABS: Squamous Epithelial Cell Urine TRACE /LPF
[2021-04-27 08:04] LABS: Vitamin B12 222 pg/mL (200-900)
[2021-04-27 08:08] LABS: Estimated Average Glucose 114 mg/dL; Hemoglobin A1c % 5.6 %
== END 2021-04-27 06:36 | disposition home or self-care (01) ==
LOC: HO.LAB 06:35
PROVIDERS: PCP Internal Medicine; Visit Provider Internal Medicine
DX: E78.00 Pure hypercholesterolemia, unspecified (principal); I25.10 Atherosclerotic heart disease of native coronary artery without angina pectoris; I10 Essential (primary) hypertension; R35.1 Nocturia; R73.01 Impaired fasting glucose
CPT/HCPCS: 36415; 80053; 80061; 81001; 82607; 83036; 84550; 85025; 87086

== ENCOUNTER → 2021-04-28 14:12 | Outpatient (BNVA) | payer MEDICARE, OTHER, SELFPAY | PROVIDERS: PCP Internal Medicine; Referring Provider Internal Medicine; Visit Provider Internal Medicine Cardiovascular Disease | DX: R10.9 Unspecified abdominal pain (principal); I20.8 Other forms of angina pectoris; Z98.61 Coronary angioplasty status; Z79.82 Long term (current) use of aspirin | CPT/HCPCS: 99212 ==

== ENCOUNTER 2021-05-21 14:27 | Emergency (ER) | payer MEDICARE, OTHER, SELFPAY ==
[2021-05-21 14:30] VITALS: BP 181/101; PULSE 103; RESP 19; TEMP 36.6; O2SAT 98; BMI 33.0
--- NOTE | 2021-05-21 14:36 | ECG_ITS ---
Test Reason : CHES[place]IN Blood Pressure : / mmHG Vent. Rate : 101 BPM Atrial Rate : 101 BPM P-R Int : 170 ms QRS Dur : 090 ms QT Int : 346 ms P-R-T Axes : 021 023 016 degrees QTc Int : 448 ms Sinus tachycardia Inferior infarct (cited on or before 06-AUG-2020) Abnormal ECG When compared with ECG of 14-SEP-2020 15:29, No significant change was found Referred By: Generic ED Physician Electronically Signed By:Forrest Ya
[2021-05-21 14:58] LABS: MANUAL DIFF FLAG NO
[2021-05-21 14:59] LABS: Basophils Absolute Auto 0.1 X10*3/uL (0.0-0.2); Basophils Percent Auto 0.7 % (0-2); Eosinophils Absolute Auto 0.2 X10*3/uL (0.0-0.4); Eosinophils Percent Auto 2.3 % (0-4); Hematocrit 49.2 % (42.0-52.0); Hemoglobin 16.4 g/dl (14.0-18.0); Imm Gran Abs Auto 0.06 X10*3/uL (0.00-0.03); Imm Gran Pct Auto 0.7 % (0.0-0.4); Lymphocytes Absolute Auto 2.6 X10*3/uL (1.2-4.9); Lymphocytes Percent Auto 29.1 % (20-40); Mean Corpuscular HGB Conc 33.3 g/dl (31.0-36.0); Mean Corpuscular Hemoglobin 29.2 pg (27.0-33.0); Mean Corpuscular Volume 87.5 fL (80.0-98.0); Mean Platelet Volume 9.4 fL (9.4-12.4); Monocytes Absolute Auto 0.6 X10*3/uL (0.1-1.2); Monocytes Percent Auto 6.9 % (2-11); Neutrophils Absolute Auto 5.4 x10*3/uL (2.0-8.3); Neutrophils Percent Auto 60.3 % (45-73); Platelet Count 183 X10*3/uL (160-400); Red Blood Count 5.62 X10*6/uL (4.60-5.80); Red Cell Distribution Width 14.4 % (11.0-16.0)
[2021-05-21 15:20] LABS: Anion Gap 14 (12-20); Blood Urea Nitrogen 20 mg/dL (9-16); Calcium 9.7 mg/dL (8.4-10.2); Carbon Dioxide 21 mmol/L (22-29); Chloride 109 mmol/L (96-108); Creatinine Clr Calc Pharmacy 67.6; Estimated Glomerular Filt Rate 51; Glucose Random 122 mg/dL (60-115); Potassium 4.4 mmol/L (3.3-5.1); Sodium 140 mmol/L (135-145)
[2021-05-21 15:28] LABS: Troponin-I High Sensitivity 4.2 ng/L (<3.5-35.0)
[2021-05-21 17:31] VITALS: BP 154/88; PULSE 100; O2SAT 95
== END 2021-05-21 19:54 | disposition left against medical advice (07) ==
PROVIDERS: Emergency Provider Emergency Medicine; PCP Internal Medicine
DX: R00.0 Tachycardia, unspecified (principal); I10 Essential (primary) hypertension; E78.5 Hyperlipidemia, unspecified; I25.2 Old myocardial infarction
CPT/HCPCS: 36415; 80048; 84484; 85025; 93005; 99283

== ENCOUNTER 2021-06-01 10:21 | Outpatient (REF) | payer MEDICARE, OTHER, SELFPAY ==
[2021-06-01 12:10] LABS: Blood Urea Nitrogen 30 mg/dL (9-16); Estimated Glomerular Filt Rate 58
== END 2021-06-01 10:22 | disposition home or self-care (01) ==
LOC: HO.LAB 10:21
PROVIDERS: PCP Internal Medicine; Referring Provider Internal Medicine; Visit Provider Surgery
DX: R10.9 Unspecified abdominal pain (principal); G89.29 Other chronic pain
CPT/HCPCS: 36415; 82565; 84520; 99202

== ENCOUNTER 2021-06-16 08:13 | Outpatient (REF) | payer MEDICARE, OTHER, SELFPAY ==
--- NOTE | ~2021-06-16 | CT_ITS ---
EXAMINATION: CT ABDOMEN AND PELVIS WITH CONTRAST CLINICAL INFORMATION: Abdominal pain COMPARISON: CT abdomen and pelvis 03/02/2021 TECHNIQUE: Multidetector volumetric images were obtained from the superior aspect of the liver through the pubic symphysis following administration 85 mL of Omnipaque 350 intravenous contrast. Sagittal and coronal reformatted images were obtained on the technologist's workstation. Oral contrast: No This CT examination was performed using dose optimization techniques as appropriate, variously including the following: *Automated exposure control *Adjustment of mA and/or kV according to patient size (this includes techniques or standardized protocols for targeted exams where dose is matched to indication/reason for exam; i.e. extremities or head) *Use of iterative reconstruction technique DLP: 582 mGy-cm FINDINGS: LUNG BASES: The lung bases are clear. The heart size is normal. LIVER, GALLBLADDER, AND BILIARY TREE: The liver is normal in size, shape, and attenuation. No focal hepatic lesion or biliary ductal dilatation is present. The gallbladder is unremarkable with no evidence of radiopaque gallstones, gallbladder wall thickening, or obvious pericholecystic inflammatory changes. PANCREAS: Unremarkable. SPLEEN: Unremarkable. ADRENAL GLANDS: Unremarkable. KIDNEYS AND URETERS: The kidneys are normal in size, shape, and attenuation. No hydronephrosis, hydroureter, or calculi seen. No perinephric stranding. There are bilateral renal cysts. There is a non-enhancing 5.5 cm partially exophytic midpole, left kidney, and a partially exophytic 2.7 cm and 3.2 cm cysts in lower pole of the left kidney. BLADDER: Unremarkable. GASTROINTESTINAL TRACT: The small and large bowel are unremarkable. The appendix is unremarkable. ABDOMINAL WALL: There is no evidence of hernia. LYMPH NODES: Normal. VASCULAR: Unremarkable. PELVIC VISCERA: The prostate gland is unremarkable. No free fluid. No abnormal pelvic lymph nodes or hernia. OSSEOUS STRUCTURES: There is a L5-S1 disc fusion with posterior hardware in place. Mild loss of L4-L5 disc level with endplate sclerosis seen. No aggressive lytic process visualized. CT/CT abdomen pelvis w con IMPRESSION: 1. Bilateral renal cysts. No echogenic renal calculi or hydronephrosis. 2. Mild constipation without obstruction. 3. L5-S1 fusion with posterior hardware in place. Fleischner guidelines were followed.
[2021-06-16] MEDS: iohexoL 350 MG/ML 100 ML INFUS..BTL 85 ML IV (09:07)
== END 2021-06-16 08:14 | disposition home or self-care (01) ==
LOC: HO.CT 08:13
PROVIDERS: Visit Provider Surgery
DX: R10.9 Unspecified abdominal pain (principal)
CPT/HCPCS: 74177; Q9967

== ENCOUNTER → 2021-07-04 13:00 | Outpatient (BNVA) | payer MEDICARE, OTHER, SELFPAY | PROVIDERS: PCP Internal Medicine; Referring Provider Internal Medicine; Visit Provider Surgery | DX: R10.9 Unspecified abdominal pain (principal) | CPT/HCPCS: 99212 ==

== ENCOUNTER → 2021-07-27 13:17 | Outpatient (BNVA) | payer MEDICARE, OTHER, SELFPAY | PROVIDERS: PCP Internal Medicine; Referring Provider Internal Medicine; Visit Provider Internal Medicine Cardiovascular Disease | DX: R10.9 Unspecified abdominal pain (principal); Z98.61 Coronary angioplasty status | CPT/HCPCS: 99212 ==

== ENCOUNTER 2021-10-17 09:11 | Day surgery (SDC) | payer MEDICARE, OTHER, SELFPAY ==
[2021-10-11 12:44] VITALS: BMI 34.9
--- NOTE | 2021-10-13 13:21 | HO.ANESPROP2 ---
Documented by User: Arina Ramsey NP 10/13/21 13:27 HPI - Anesthesia Eval Consult details Narrative: 66yo M for Upper Endoscopy and Colonoscopy plavix/asa for DALY 12/2020 (OK to hold plavix per cardiology, ideally stay on asa) [facility] Active Problems Active Problems: All Active Problems (Updated 04/28/21 @ 15:08 by Forrest Ya MD) Fusion of lumbosacral spine (Acute) H/O colonoscopy (Acute) H/O spinal fusion (Acute) Hyperlipidemia (Acute) Essential hypertension (Acute) Dyspnea on exertion (Acute) Stable angina (Acute) S/P coronary angioplasty (Acute) Abdominal pain (Acute) Past Medical History Medical History Arthritis GERD (gastroesophageal reflux disease) Gout HTN (hypertension) Hyperlipemia Kidney stone Myocardial infarct Tubular adenoma Family History Family History Mother Colon cancer Father Alzheimer's dementia S/P triple vessel bypass Family history of problems with anesthesia: No Surgical History Surgical History H/O lithotripsy History of esophagogastroduodenoscopy (EGD) History of mandibular surgery History of total left knee replacement History of Problems with Anesthesia: No Social History Social History Alcohol intake: current Alcohol intake frequency: does not drink Patient Tobacco Use Status: Never used Tobacco Second Hand Smoke Exposure: No Are you DNR?: No Advance Directives: No Advance Directives Information Provided: Yes Advance Directives on File: No Recently lost weight without trying: No Poor oral hygiene: No Meds Allergies Allergy/AdvReac Type Severity Reaction Status Date / Time Nbsfwri-KVY-TdL Reductase Allergy Intermediate MUSCLE Verified 07/27/21 13:28 Inhibitor WEAKNESS [[id number] REDUCTASE INHIBITOR] Home Medications Medication Instructions Recorded Confirmed Last Taken Type aspirin 81 mg tablet,delayed 81 mg PO DAILY 11/24/20 07/27/21 10/10/21 History release allopurinol 300 mg tablet 300 mg PO DAILY 01/24/21 10/11/21 Unknown History clopidogrel 75 mg tablet 75 mg PO DAILY 01/24/21 10/11/21 10/13/21 History hyoscyamine sulfate 0.125 mg tablet mg PO 01/24/21 07/27/21 Unknown History cyclobenzaprine 5 mg tablet 5 mg PO BID muscle spasm 07/27/21 07/27/21 Unknown History metoprolol succinate 50 mg 50 mg PO DAILY 07/27/21 10/11/21 Unknown History tablet,extended release 24 hr prednisone 10 mg tablet See Rx Instructions PO .COMPLEX 07/27/21 07/27/21 Unknown History prednisone 5 mg tablet 5 mg PO DAILY 10/11/21 10/11/21 Unknown History Exam Exam Date and Time: October 13, 2021 1321 Height,Weight and Vital Signs: Height 6 ft 1 in Weight 120.202 kg Narrative Narrative: EKG 04/2021 Vent. Rate : 101 BPM ? ? Atrial Rate : 101 BPM ?? P-R Int : 170 ms? QRS Dur : 090 ms ? ? QT Int : 346 ms ? ? ? P-R-T Axes : 021 023 016 degrees ?? QTc Int : 448 ms ? Sinus tachycardia Inferior infarct (cited on or before 06-AUG-2020) Abnormal ECG When compared with ECG of 14-SEP-2020 15:29, No significant change was found Assessment and Plan Assessment Anesthesia Assessment: Chart Reviewed Final Anesthetic Review Family History of Problems with Anesthesia: No History of Problems with Anesthesia: No Documented by User: Gaviota Hardy MD 10/17/21 11:20 [facility] Past Medical History Medical History Arthritis GERD (gastroesophageal reflux disease) Gout HTN (hypertension) Hyperlipemia Kidney stone Myocardial infarct Tubular adenoma Family History Family History Mother Colon cancer Father Alzheimer's dementia S/P triple vessel bypass Surgical History Surgical History H/O lithotripsy History of esophagogastroduodenoscopy (EGD) History of mandibular surgery History of total left knee replacement Social History Social History Alcohol intake: current Alcohol intake frequency: does not drink Patient Tobacco Use Status: Never used Tobacco Second Hand Smoke Exposure: No Are you DNR?: No Advance Directives: No Advance Directives Information Provided: Yes Advance Directives on File: No Recently lost weight without trying: No Poor oral hygiene: No Meds Allergies Allergy/AdvReac Type Severity Reaction Status Date / Time Magortd-OCE-JzH Reductase Allergy Intermediate MUSCLE Verified 07/27/21 13:28 Inhibitor WEAKNESS [[id number] REDUCTASE INHIBITOR] Home Medications Medication Instructions Recorded Confirmed Last Taken Type aspirin 81 mg tablet,delayed 81 mg PO DAILY 11/24/20 07/27/21 10/10/21 History release allopurinol 300 mg tablet 300 mg PO DAILY 01/24/21 10/11/21 Unknown History clopidogrel 75 mg tablet 75 mg PO DAILY 01/24/21 10/11/21 10/13/21 History hyoscyamine sulfate 0.125 mg tablet mg PO 01/24/21 07/27/21 Unknown History cyclobenzaprine 5 mg tablet 5 mg PO BID muscle spasm 07/27/21 07/27/21 Unknown History metoprolol succinate 50 mg 50 mg PO DAILY 07/27/21 10/11/21 Unknown History tablet,extended release 24 hr prednisone 10 mg tablet See Rx Instructions PO .COMPLEX 07/27/21 07/27/21 Unknown History prednisone 5 mg tablet 5 mg PO DAILY 10/11/21 10/11/21 Unknown History Exam Airway Mallampati Class: III TM Dist: >3cm Neck ROM: Full Loose/Missing/Broken Teeth: No Heart: RRR Lungs: CTA Assessment and Plan Assessment Anesthesia Assessment: Anesthesia Plan Discussed Final Anesthetic Review NPO: Yes ASA Class: III Final Preanesthetic Review: Meds/Allgs Chart Reviewed, Consent Obtained/Reviewed and Anes Risks/Benef Reviewed Patient Risk: Intermediate Procedure Risk: Intermediate Anesthetic Plan Anesthetic Plan: MAC: Disposition: Standard PACU
[2021-10-17 09:19] VITALS: BP 163/95; PULSE 67; RESP 17; TEMP 36.2; O2SAT 98
[2021-10-17] MEDS: Lactated Ringers 1,000 ML 100 ML IVCONT (09:41)
[2021-10-17 11:51] VITALS: BP 105/62; PULSE 53; RESP 20; TEMP 36.8; O2SAT 97
--- NOTE | 2021-10-17 12:01 | PM.OP ---
Brief Operative Note Date of Service: 10/17/21 Pre-op diagnosis: Abdominal pain, Screening Post-op diagnosis: other (Gastritis, R/O celiac disease, Colon polyps) Procedure: EGD with biopsies, Colonoscopy to the cecum and TI with bx/removal of polyp and hot snare polypectomy of transverse colon polyp with application of 1 Resolution clip. Surgeon: Yang Romano Anesthesia: MAC Was an Soda Fountain Operator used for this Procedure?: No Estimated blood loss (mL): 2.0 Pathology: other (A. Descending duodenum B. Gastric antrum C. Ascending colon polyp D. Transverse colon polyp) Condition: stable Disposition: PACU
[2021-10-17 12:06] VITALS: BP 117/67; PULSE 55; RESP 18; O2SAT 95
[2021-10-17 12:21] VITALS: BP 123/72; PULSE 56; RESP 18; TEMP 36.8; O2SAT 95
--- NOTE | 2021-10-17 22:22 | OP_ITS ---
SURGEON: Yang Romano MD INDICATIONS: The patient presents for evaluation of ongoing abdominal pain and colorectal cancer screening. Full consent has been obtained from him for both procedures, including risks of bleeding and perforation. PREOPERATIVE DIAGNOSIS: POSTOPERATIVE DIAGNOSIS: PROCEDURE PERFORMED: Esophagogastroduodenoscopy with biopsies, and colonoscopy to the cecum and terminal ileum with biopsy and removal of polyp, and hot snare polypectomy with placement of 1 Resolution Clip on the transverse colon polypectomy site. ESTIMATED BLOOD LOSS: COMPLICATIONS: ANESTHESIA: Monitored anesthesia care. ASSISTANTS: SPECIMENS: PREOPERATIVE DIAGNOSES: Abdominal pain and colorectal cancer screening. POSTOPERATIVE DIAGNOSES: Abdominal pain and colorectal cancer screening, gastritis, rule out celiac disease, colon polyps, diverticulosis, and internal hemorrhoids. DESCRIPTION OF PROCEDURE: The patient was placed in the left lateral decubitus position. The Olympus video gastroscope was passed in the posterior oropharynx and upper esophagus under direct vision. The scope was passed slowly into the distal esophagus. The gastroesophageal junction appeared normal at 43 cm. There was no sign of any esophagitis. The scope entered into the stomach and was advanced to the pylorus. The duodenum was cannulated to the descending portion. The duodenum including the bulb appeared normal without mass or ulceration. Biopsies were obtained from the 2nd and 3rd portions of duodenum. The scope was withdrawn back from the stomach. The gastric antrum and body of the stomach had some chronic changes of gastritis with some friability and small amounts of coffee grounds material. There were no erosions nor ulceration. There was good peristalsis. Biopsies were obtained from the antrum. The scope was retroflexed visualizing the proximal stomach carefully, which appeared normal, without any sign of mass or ulceration. The scope was straightened and withdrawn back to the esophagus. The esophageal mucosa appeared normal. The scope was withdrawn from the patient. He was turned around for the colonoscopy. The digital rectal exam revealed no abnormalities. The Olympus video pediatric colonoscope was entered into the rectum and advanced easily to the cecum. Once in the cecum, I did identify normal-appearing cecal pouch with appendiceal orifice and a normal-appearing ileocecal valve. The terminal ileum was cannulated and appeared normal. Scope was withdrawn back from the colon. The entire cecum and ileocecal valve appeared normal. The scope was slowly withdrawn assessing all mucosal surfaces carefully. Preparation was excellent. In the ascending colon was an approximately 4 mm polyp, which was biopsied and completely removed with cold biopsy forceps. In the transverse colon, just behind a fold, was an approximately 8 mm polyp, which was removed by hot snare polypectomy and recovered by suction. The polypectomy site appeared clean, without any sign of residual polyp nor bleeding. I did place a single Resolution Clip on it with good deployment and good hemostasis. I did not visualize any other polyps, colitis, or angiodysplasia. There was a mild amount of sigmoid diverticulosis. In the rectum, scope was retroflexed visualizing internal hemorrhoids, but no other pathology. The rectal mucosa appeared normal. Scope was straightened and withdrawn from the patient. He tolerated both procedures well and was returned to recovery area in stable condition. IMPRESSION: 1. Gastritis. 2. Rule out celiac disease. 3. Colon polyps. 4. Diverticulosis. 5. Internal hemorrhoids. PLAN: The results of the pathology will be checked. I would recommend a repeat colonoscopy in 5 years. He will continue his daily omeprazole. I suspect today's findings were probably in relation to his chronic use of aspirin as well as Plavix in relation to the coronary artery disease. I shall add sucralfate 1 g b.i.d. to his regimen. He was advised to see me in the fall. He was advised to resume his aspirin and Plavix today as he has been off both of those prior to the procedure and he does have a coronary artery stent placed from last December of 2020. This has been discussed with the patient and his . He was advised to avoid all NSAIDs long-term. Hopefully, the Carafate will give him some relief of abdominal pain as well in case the gastritis was contributing to that. MD KATHY Lozada/KAI / [phone]
== END 2021-10-17 13:05 | disposition home or self-care (01) ==
PROVIDERS: PCP Internal Medicine; Visit Provider Internal Medicine
PROC: (CPT 45385; principal; 2021-10-17 10:40)
DX: Z12.11 Encounter for screening for malignant neoplasm of colon (principal); Z86.010 Personal history of colon polyps; Z80.0 Family history of malignant neoplasm of digestive organs; D12.2 Benign neoplasm of ascending colon; D12.3 Benign neoplasm of transverse colon; K57.30 Diverticulosis of large intestine without perforation or abscess without bleeding; K64.8 Other hemorrhoids; K21.9 Gastro-esophageal reflux disease without esophagitis; K29.60 Other gastritis without bleeding; I25.2 Old myocardial infarction; Z98.61 Coronary angioplasty status; I10 Essential (primary) hypertension; E78.5 Hyperlipidemia, unspecified; Z79.02 Long term (current) use of antithrombotics/antiplatelets; Z79.82 Long term (current) use of aspirin; Z79.899 Other long term (current) drug therapy
CPT/HCPCS: 45385; 45380; 43239; 88305; 88342

== ENCOUNTER 2021-10-27 10:21 | Outpatient (REF) | payer MEDICARE, OTHER, SELFPAY ==
--- NOTE | ~2021-10-27 | XR_ITS ---
EXAMINATION: XR CHEST CLINICAL INFORMATION: Primary hypertension. COMPARISON: 09/14/2020 chest radiograph. TECHNIQUE: 2 views of the chest were obtained. FINDINGS: No significant abnormality is noted involving the heart, lungs, mediastinum, bony thorax or soft tissues. XR/XR chest 2V IMPRESSION: No acute cardiopulmonary process.
== END 2021-10-27 10:22 | disposition home or self-care (01) ==
LOC: HO.XRAY 10:21
PROVIDERS: PCP Internal Medicine; Visit Provider Internal Medicine
DX: I10 Essential (primary) hypertension (principal); R05.9 Cough, unspecified
CPT/HCPCS: 71046

== ENCOUNTER 2021-11-08 10:14 | Outpatient (REF) | payer MEDICARE, OTHER, SELFPAY ==
[2021-11-08 10:35] LABS: MANUAL DIFF FLAG NO
[2021-11-08 10:51] LABS: Basophils Absolute Auto 0.1 X10*3/uL (0.0-0.2); Basophils Percent Auto 0.8 % (0-2); Eosinophils Percent Auto 0.4 % (0-4); Hematocrit 44.9 % (42.0-52.0); Hemoglobin 14.4 g/dl (14.0-18.0); Imm Gran Abs Auto 0.17 X10*3/uL (0.00-0.03); Imm Gran Pct Auto 1.9 % (0.0-0.4); Lymphocytes Absolute Auto 2.4 X10*3/uL (1.2-4.9); Lymphocytes Percent Auto 27.4 % (20-40); Mean Corpuscular HGB Conc 32.1 g/dl (31.0-36.0); Mean Corpuscular Hemoglobin 28.6 pg (27.0-33.0); Mean Corpuscular Volume 89.3 fL (80.0-98.0); Mean Platelet Volume 9.8 fL (9.4-12.4); Monocytes Absolute Auto 1.1 X10*3/uL (0.1-1.2); Monocytes Percent Auto 12.3 % (2-11); Neutrophils Absolute Auto 5.1 x10*3/uL (2.0-8.3); Neutrophils Percent Auto 57.2 % (45-73); Platelet Count 236 X10*3/uL (160-400); Red Blood Count 5.03 X10*6/uL (4.60-5.80); Red Cell Distribution Width 14.6 % (11.0-16.0); White Blood Count 8.9 X10*3/uL (4.8-10.8)
[2021-11-08 11:26] LABS: TSH reflex Free T4 2.03 uIU/mL (0.32-4.0)
== END 2021-11-08 10:15 | disposition home or self-care (01) ==
LOC: HO.LAB 10:14
PROVIDERS: PCP Internal Medicine; Visit Provider Internal Medicine
DX: R06.00 Dyspnea, unspecified (principal); R05.9 Cough, unspecified; R49.0 Dysphonia
CPT/HCPCS: 36415; 84443; 85025; 99202

== ENCOUNTER → 2021-11-10 09:37 | Outpatient (BNVA) | payer MEDICARE, OTHER, SELFPAY | PROVIDERS: PCP Internal Medicine; Referring Provider Internal Medicine; Visit Provider Internal Medicine Cardiovascular Disease | DX: R06.00 Dyspnea, unspecified (principal); I10 Essential (primary) hypertension; E78.2 Mixed hyperlipidemia | CPT/HCPCS: 99212 ==

== ENCOUNTER → 2021-11-24 08:51 | Outpatient (REF) | payer MEDICARE, OTHER, SELFPAY ==
--- NOTE | ~2021-11-24 | NM_ITS ---
Myocardial perfusion study Indication: Shortness of breath to evaluate for myocardial ischemia Technique: The patient was brought in for a Lexiscan perfusion study on 11/24/2021. Patient performed low-level exercise and was injected 0.4 mg of Lexiscan intravenously. Within a minute of injection, 45 mCi of sestamibi was given intravenously. Images were obtained using the SPECT gamma camera interlaced with the gating device. Images were obtained in supine position. Resting perfusion study was performed on 11/25/2021. Patient was administered 45 mCi of sestamibi intravenously at rest. Images were then obtained in supine position. Images obtained with and without CT attenuation. Total DLP 140 mGy-cm. Images were processed with the software and compared side to side in short axis, horizontal long axis and vertical long axis views. Findings: The stress perfusion study showed non attenuated images show mildly reduced uptake in the basal lateral and minimal thinning of the mid and distal lateral wall of the LV myocardium. Of the LV myocardium normally perfused. Attenuation corrected images show mildly reduced distal anterior wall of the LV myocardium.. The gated study shows normal LV systolic function with visually estimated LVEF of greater than 60%. LV cavity is normal in size. The gated study shows normal systolic wall thickening and contraction of segments. Resting study shows both attenuated as well as non attenuated corrected images show normal uptake of radiotracer in all segments of LV myocardium. There is suggestion of left ventricle hypertrophy. Gating at rest reveals normal systolic wall motion with ejection fraction at 76%. The findings are consistent with small area of mild intensity basal lateral reversible defect suggestive of ischemia. This is likely suggestive of possibly branch vessel ischemia in diagonal territory. NM/NM emelina perf SPECT rest & str Impression: 1. Myocardial perfusion imaging study shows small area of mild intensity basal lateral wall ischemia 2. Gated LVEF is greater than 60% 3. Transient ischemic dilatation not present EKG is nondiagnostic for ischemia
--- NOTE | 2021-11-24 08:55 | CA_ITS ---
Acquisition Time: 2021-11-24 09:09:00 Total Exercise Time: 00:02:00 Test Indications: Dyspnea Medications: ALLOPURINOL CLOPIDOGREL METOPROLOL OMEPRAZOLE VALSARTAN SUCRALFATE Protocol: LEXISCAN Max HR: 093 BPM 61% of Pred: 152 BPM Max BP: 130/072 mmHG Max Work Load: 1.0 METS Pharmacological stress test with Lexiscan injection, while sitting and kicking his legs, with sob post injection, no chest discomfort, without arrythmia, with normotensive response to injection, with nondiagnostic EKG for ischemia. In recovery he reported headache that was treated with Aminophylline 75mg IVP to reverse Lexiscan with resolution of symptom. Nuclear images pending. Test reviewed with Dr Agudelo. Referred By: Forrest Ya Overread By: NIMA SIFUENTES
== END ==
LOC: HO.CARD 08:51
PROVIDERS: PCP Internal Medicine; Visit Provider Internal Medicine Cardiovascular Disease
DX: R06.00 Dyspnea, unspecified (principal)
CPT/HCPCS: 78452; 93017; A9500; J0280; J2785

== ENCOUNTER 2021-12-08 07:31 | Outpatient (REF) | payer MEDICARE, OTHER, SELFPAY ==
[2021-12-08 08:24] LABS: Hematocrit 45.8 % (42.0-52.0); Hemoglobin 14.8 g/dl (14.0-18.0); Mean Corpuscular HGB Conc 32.3 g/dl (31.0-36.0); Mean Corpuscular Hemoglobin 28.7 pg (27.0-33.0); Mean Corpuscular Volume 88.8 fL (80.0-98.0); Mean Platelet Volume 9.8 fL (9.4-12.4); Platelet Count 243 X10*3/uL (160-400); Red Blood Count 5.16 X10*6/uL (4.60-5.80); Red Cell Distribution Width 13.9 % (11.0-16.0)
[2021-12-08 08:53] LABS: Anion Gap 14 (12-20); Blood Urea Nitrogen 12 mg/dL (9-16); Calcium 9.4 mg/dL (8.4-10.2); Carbon Dioxide 26 mmol/L (22-29); Chloride 103 mmol/L (96-108); Estimated Glomerular Filt Rate 53; Glucose Random 124 mg/dL (60-115); Potassium 4.4 mmol/L (3.3-5.1); Sodium 139 mmol/L (135-145)
== END 2021-12-08 07:32 | disposition home or self-care (01) ==
LOC: HO.LAB 07:31
PROVIDERS: PCP Internal Medicine; Visit Provider Internal Medicine Cardiovascular Disease
DX: R94.39 Abnormal result of other cardiovascular function study (principal)
CPT/HCPCS: 36415; 80048; 85027; 85610

== ENCOUNTER 2021-12-26 10:46 | Outpatient (REF) | payer MEDICARE, OTHER, SELFPAY ==
--- NOTE | 2021-12-26 17:13 | PFT_ITS ---
Again, this is spirometry report. CPT code 20566. This is not a formal PFT. SPIROMETRY: The FEV1 to FVC of 81% with an FEV1 of 2.93 L, 100% predicted and FVC of 4.83 L which is 100% predicted. No significant response to bronchodilators noted. COMPARISONS: None. INTERPRETATION: No obstructive ventilatory defect. Normal FEV1 and FVC. No significant response to bronchodilators noted. If asthma is in the differential, Methacholine challenge may be helpful in assessing for hyper-reactive airways. Otherwise, clinical correlation warranted. MD ANNALEE Pardo/KAI / [phone]
== END 2021-12-26 10:47 | disposition home or self-care (01) ==
LOC: HO.RESP 10:46
PROVIDERS: PCP Internal Medicine; Visit Provider Internal Medicine
DX: R05.9 Cough, unspecified (principal); R06.00 Dyspnea, unspecified
CPT/HCPCS: 94060

== ENCOUNTER 2021-12-28 08:07 | Outpatient (REF) | payer MEDICARE, OTHER, SELFPAY ==
--- NOTE | ~2021-12-28 | CT_ITS ---
EXAMINATION: CT CHEST WITH CONTRAST CLINICAL INFORMATION: Chronic cough COMPARISON: Previous chest x-ray most recent September 2021 TECHNIQUE: Multidetector volumetric CT imaging of the chest was obtained after the administration of 65 mL of Omnipaque 350 intravenous contrast without immediate adverse reactions. Axial MIP volume rendering provided. Sagittal and coronal reformatted images were obtained. This CT examination was performed using dose optimization techniques as appropriate, variously including the following: *Automated exposure control *Adjustment of mA and/or kV according to patient size (this includes techniques or standardized protocols for targeted exams where dose is matched to indication/reason for exam; i.e. extremities or head) *Use of iterative reconstruction technique DLP: 242 mGy-cm FINDINGS: BUILDING RIGGER: Unremarkable LUNGS: There is a 2 mm right upper lobe nodule axial image 107 series 5. The lungs are otherwise clear. No evidence of emphysema, interstitial lung disease or bronchiectasis. No endobronchial or endotracheal lesion. MEDIASTINUM: The heart size is normal. There is significant coronary artery calcification. The thoracic aorta is normal in caliber. There are small mediastinal lymph nodes. No enlarged lymph nodes are seen. The thoracic aorta is normal in caliber. PLEURA: There is no pleural effusion. No pleural mass or thickening. AXILLA: No lymphadenopathy. UPPER ABDOMEN: There may be fatty infiltration of the liver. There is a heterogeneous low-attenuation area in the spleen measuring 3 cm. This is new from previous abdominal CT May 2021. Both these findings may be related to arterial phase enhancement. There is mild diverticulosis of the colon. OSSEOUS STRUCTURES: There are degenerative changes of the spine. There is a right T10 vertebral body hemangioma. CT/CT chest w IV con IMPRESSION: 2 mm right upper lobe pulmonary nodule. According to the UPDATED 2017 Fleischner Society recommendations, the advised follow-up imaging for less than 6 mm solid nodule: Low risk, no chest CT follow-up and high risk, optional chest CT follow-up in one year. Significant coronary artery calcification. Fleischner guidelines were followed.
[2021-12-28] MEDS: iohexoL 350 MG/ML 75 ML INFUS..BTL 65 ML IV (08:48)
== END 2021-12-28 08:08 | disposition home or self-care (01) ==
LOC: HO.CT 08:07
PROVIDERS: PCP Internal Medicine; Visit Provider Internal Medicine
DX: R05.3 Chronic cough (principal); I10 Essential (primary) hypertension; I20.8 Other forms of angina pectoris; E78.2 Mixed hyperlipidemia; Z98.61 Coronary angioplasty status
CPT/HCPCS: 71260; 93005; 99212; Q9967

== ENCOUNTER → 2022-01-10 10:47 | Outpatient (BNVA) | payer MEDICARE, OTHER, SELFPAY | PROVIDERS: PCP Internal Medicine; Visit Provider Internal Medicine | DX: R05.9 Cough, unspecified (principal); R91.1 Solitary pulmonary nodule | CPT/HCPCS: 99212 ==

== ENCOUNTER 2022-02-17 10:15 | Outpatient (REF) | payer MEDICARE, OTHER, SELFPAY ==
--- NOTE | ~2022-02-17 | FL_ITS ---
PROCEDURE: XR BARIUM SWALLOW CLINICAL INFORMATION: Dysphagia. COMPARISON: None TECHNIQUE: Routine modified barium swallow was performed under lateral fluoroscopy in presence of speech therapist and oral administration of various consistencies of food. FINDINGS: On oral administration of thin barium there is laryngeal penetration but no aspiration. On oral administration of nectar consistency barium, puree and solid food there is normal propagation of bolus from the oral cavity through the pharynx into esophagus. There is mild retention of solid food in the valleculae and piriform sinuses which cleared with water. FLUOROSCOPY TIME: 1.8 minutes DOSE AREA PRODUCT: 0.939 uGy-m2 (microgray-meter squared) FL/FL barium swallow modified IMPRESSION: Laryngeal penetration with thin barium but no aspiration seen. Rest of the modified barium swallow is unremarkable. Correlate with speech therapist.
--- NOTE | 2022-02-20 13:55 | MHC.SL.IMP ---
Date of Plan of Treatment: 02/17/22 Onset of Symptoms/Illness: 02/17/17 Date Treatment Started: 02/17/22 Admitting Diagnosis: Arthritis Cough Fusion of lumbosacral spine GERD (gastroesophageal reflux disease) Gout Hoarseness HTN (hypertension) Hyperlipemia Kidney stone Myocardial infarct Pulmonary nodule Tubular adenoma Primary Speech & Language Diagnosis: R13.13 Pharyngeal Phase Dysphagia Reason for Today's Visit: 88402 Modified Barium Swallow Study Pre-evaluation Dietary Consistencies: Regular Pre-evaluation Liquid Consistency: Thin Pre-evaluation Medication Administration: Whole with Liquid Medical History: Modified Barium Swallow Study Fluoroscopic Evaluation of Swallowing Function CPT Code 81597 Evaluation Year: 2021 Reason for Study: Patient reports globus sensation. Referring Physician: Casimiro Thompson MD Evaluating Clinician: Frida Garcia MA, CCC-SALES TEAM RECRUITER Study Number: 1 Patient Name: Jun James Status: Outpatient Age: 67 Gender: Male MEDICAL HISTORY: Year of Onset or Diagnosis: 2021 Medical History (Updated 01/10/22 @ 11:52 by Timi Rowe MD) Arthritis Cough Fusion of lumbosacral spine GERD (gastroesophageal reflux disease) Gout Hoarseness HTN (hypertension) Hyperlipemia Kidney stone Myocardial infarct Pulmonary nodule Tubular adenoma Surgical History H/O colonoscopy H/O lithotripsy H/O spinal fusion History of cardiac cath History of esophagogastroduodenoscopy (EGD) History of mandibular surgery History of total left knee replacement Current (pre-evaluation) Intake/Diet: Route: PO Diet Grade: Regular Liquid Consistencies: Thin Pain: Chronic/Ongoing reported at time of study, Sternum, rated 8 on scale 0-10 SUBJECTIVE: Pt is a 67 year old male referred for a modified barium swallow study by Casimiro Thompson MD of [facility]. Pt reports globus sensation with food and pills at the level of his sternum. Pt denied globus sensation with intake of liquids. He reports intermittent pain when swallowing, stating ?It hurts while it is stuck.? He rated the pain 8 in severity on a scale 0 to 10. Pt reported carbonated beverages to be very painful for him to drink. Pt denies coughing or choking when eating or drinking. Pt reports he has modified his eating habits. He reports he sits up and stretches his neck out to ?help things go down,? he chews food much finer than he used to, takes smaller bites, swallows again before sipping liquid. He reports his difficulties are intermittent, happen ?about two times a day.? Pt reports onset of dysphagia 4-5 years ago, and that his symptoms have remained the same, denies worsening of symptoms during that time. Oral Motor Exam Facial Symmetry: Symmetrical Mouth Occlusion: Normal Oral-Facial Teeth Characteristics: Intact/Normal Oral-Facial Lip Pucker Description: Normal Oral-Facial Smile (Lips) Description: Normal Oral-Facial Puff Cheeks Description: Normal Tongue Size: Normal Tongue Excursion Description: Normal Tongue Range of Movement Description: Normal Tongue Speed of Movement Description: Normal Tongue Strength of Movement (against opposing pressure): Normal Tongue Movement Characteristics: Normal/Absent Is patient able to manage secretions?: Yes Food and Liquid Trials: Oral Impairment: Lip Closure: Did not test Oral Impairment: Tongue Control During Bolus Hold: 1=Escape to lateral buccal cavity/floor of mouth (FOM) Oral Impairment: Bolus Preparation/Mastication: 0=Timely and efficient chewing and mashing Oral Impairment: Bolus Transport/Lingual Motion: 0=Brisk tongue motion Oral Impairment: Oral Residue: 1=Trace residue lining oral structures Oral Impairment:Initiation of Pharyngeal Swallow: 1=Bolus head in valleculae Pharyngeal Impairment: Soft Palate Elevation: 0=No bolus between soft palate (SP)/pharyngeal wall (PW) Pharyngeal Impairment: Laryngeal Elevation: 0=Complete superior movement of thyroid cartilage (see description) Pharyngeal Impairment: Anterior Hyoid Excursion: 0=Complete anterior movement Pharyngeal Impairment: Epiglottic Movement: 1=Partial inversion Pharyngeal Impairment: Laryngeal Vestibular Closure:: 1=Incomplete: narrow column air/contrast in laryngeal vestibule Pharyngeal Impairment: Pharyngeal Stripping Wave: 0=Present: complete Pharyngeal Impairment: Pharyngeal Contraction: Did not test Pharyngeal Impairment: Pharyngoesophageal Segment Openin=Partial distention/partial duration: partial obstruction of flow Pharyngeal Impairment: Tongue Base (TB) Retraction: 1=Trace column of contrast/air between TB and posterior PW Pharyngeal Impairment: Pharyngeal Residue: 2=Collection of residue within or on pharyngeal structures Pharyngeal Impairment: Esophageal Clearance Upright Position: Did not test Impressions and Recommendations Clinical Observations: OBJECTIVE: Time-out: performed at 10:45 Evaluation Start: 10:30; Stop: 10:34 Patient Positioning: Seated 70-90 degrees Viewing Planes: LATERAL ONLY Contrast: MBSImP? Standardized Protocol using commercially prepared, standardized Barium viscosities, including: Varibar? THIN LIQUID (40% w/v, <15 cps) , Varibar? NECTAR (40% w/v, <150-450 cps) , 1/2 Shortbread Cookie (1 x1 x.25 ) MBSImP ID: [id number] MBSImP Results: Lip closure for intraoral bolus containment could not be assessed due to logistical reasons not related to physiologic impairment. Tongue control during bolus hold allowed bolus escape to the lateral buccal cavity/floor of mouth. Bolus preparation and mastication resulted in timely and efficient chewing and mashing. Bolus transport/lingual motion was with brisk tongue motion. Oral residue was a trace, lining oral structures. Initiation of the pharyngeal swallow occurred when the bolus head was in the valleculae. Soft palate elevation resulted in no bolus between the soft palate and the pharyngeal wall. Laryngeal elevation demonstrated complete superior movement of the thyroid cartilage with complete approximation of the arytenoids to the epiglottic petiole. Anterior hyoid excursion demonstrated complete anterior movement. Epiglottic movement resulted in partial inversion. Laryngeal vestibular closure was incomplete, with a narrow column of air/contrast noted within the laryngeal vestibule at the height of the swallow. Pharyngeal stripping wave was present and complete. Pharyngeal contraction could not be determined due to logistical reasons not related to physiologic impairment. Pharyngoesophageal segment opening demonstrated partial distension/partial duration, with partial obstruction of bolus flow. Tongue base retraction allowed a trace column of contrast or air between the retracted tongue base and the posterior pharyngeal wall. Pharyngeal residue was a collection of residue within or on pharyngeal structures. Esophageal clearance in the upright position could not be assessed due to logistical reasons not related to physiologic impairment. Oral Impairment Score: 2 (absence of score, component 1) Pharyngeal Impairment Score: 5 (absence of score, component 13) Esophageal Impairment Score: --- (absence of score, component 17) Laryngeal Penetration and Aspiration: Penetration was observed in today's study. Thin Contrast entered the airway, remained above the vocal folds, and was ejected from the airway. ASSESSMENT: Clinician Assessment: This exam was conducted by a multidisciplinary team, which included a speech pathologist, radiologist, and imaging technician. Pt was standing during this exam for lateral view only. Pt trialed the following liquid and solid consistencies: thin liquid barium by cup, nectar thick liquid barium by cup, pureed solid (mixture applesauce with barium paste), ground solid (mixture chicken salad with barium paste), regular solid (Cordeila Doone cookie coated with barium paste), and barium pill tablet. Oral phase was unremarkable. There was escape of bolus to the floor of mouth, no premature posterior escape prior to productive tongue movement. Mastication was timely and efficient with brisk posterior tongue motion for the transport of bolus. There was trace oral residue which subsequently cleared. Pharyngeal swallow trigger initiated as bolus head reached the valleculae. There was no nasopharyngeal reflux. Laryngeal elevation was complete with complete anterior hyoid movement. Epiglottic inversion was incomplete. Laryngeal vestibular closure was incomplete. With 5 mL sip of thin liquid by cup, there was no evidence of aspiration or penetration. When pt took individual sips thin liquid by cup consisting of larger bolus size, there was intermittent flash penetration. Trace amount of thin liquid contrast entered the airway above the vocal folds, and immediately and spontaneously ejected from the airway. There was no evidence of aspiration with intake of thin liquids. There was no penetration or aspiration with intake of nectar thick liquid, pureed solid, ground solid, and regular solid. There was trace residue on the pharyngeal wall with sips of liquid and bites of softer solids. When pt consumed short bread cookie, there was increased pharyngeal residue. Mild retention in the valleculae, on the tongue base, and on the posterior pharyngeal wall. Pt effectively cleared pharyngeal residue with sips of water. Pt swallowed barium pill tablet with sips of water. Pill passed through pharynx with no hang up. The following compensatory strategies have not been used until today's study, but when employed, improved swallowing function: [place]-thick Liquid eliminated Penetration Bolus Volume Change eliminated Penetration Liquid Wash eliminated Pharyngeal Residue Liquid Intake Recommendation: Thin Liquid Intake Strategies: Small Sips, No Straws Dietary Recommendations: Regular Medication Administration: Whole with Liquid Please contact the pharmacy regarding appropriate crushable or liquid drug formulations that are available whenever modified delivery is recommended. Compensatory Strategies Recommended: Sitting Upright (90 deg) Double Swallow No Straw Small Bites and Sips Alternate Liquids/Solids Rate of Ingestion Change Supervision during eating and or drinking: None Needed PLAN: Intake Recommendations: Route: PO Diet Grade: Regular Liquid Consistencies: Thin Post-Study Functional Oral Intake Scale (FOIS): 7- Total oral intake with no restrictions Recommend follow up with Hris Coordinator given pt?s history of GERD. Pt is recommended to resume an unmodified diet REGULAR solids with THIN liquids. Recommended strategies and precautions include: -Take small sips of liquid, one sip at a time. -Avoid ?chugging? consecutive sips of liquid. -Avoid the use of straws. -Moisten food with sauces and gravies as needed. -One bite at a time and chew food well. -Ensure oral cavity is clear before taking/giving more bites. -Double swallow. -Alternate bites of food with sips of liquid. -Upright 90 degree position when eating/drinking and for at least 45 minutes afterwards. Recommend pt to continue monitoring dysphagia. Contact PCP if there is any worsening of dysphagia, in which case pt may need re-evaluation. Therapy Recommendations: Therapy will be discontinued Prognosis for Improvement: The prognosis for the patient to meet nutritional needs by mouth is excellent based on degree of impairment. Clinician - Supplemental, Miscellaneous Communication: It is important to note MBSS objective studies are snapshots in time and Patient function might vary with factors such as time of day or concomitant medical conditions. For this reason, the final treatment plan for this patient should rest with their medical care team. Additional recommendations should be considered with the totality of the Patient in mind. Thank for the opportunity to participate in the care of this patient. If you have any questions about the content of this report, please contact the [facility] at [facility]. Education: Education regarding findings from today's study and plans for therapy were provided to Patient only through Verbal Instruction. Understanding was expressed by the Patient only. Chemical Project Engineer Clinician/Clinical Fellow: No Supervisory Statement: N/A Speech Language Pathologist: Frida Garcia M.A., CCC-SALES TEAM RECRUITER
== END 2022-02-17 10:16 | disposition home or self-care (01) ==
LOC: HO.XRAY 10:15
PROVIDERS: Visit Provider Internal Medicine
DX: R13.13 Dysphagia, pharyngeal phase (principal)
CPT/HCPCS: 74230; 92611

== ENCOUNTER 2022-02-19 10:35 | Emergency (ER) | payer MEDICARE, OTHER, SELFPAY ==
--- NOTE | ~2022-02-19 | XR_ITS ---
EXAMINATION: XR CHEST CLINICAL INFORMATION: Chest pain COMPARISON: November 26, 2021 TECHNIQUE: 2 views of the chest were obtained. FINDINGS: No significant abnormality is noted involving the heart, lungs, mediastinum, bony thorax or soft tissues. XR/XR chest 2V IMPRESSION: No acute disease.
--- NOTE | 2022-02-19 10:36 | ECG_ITS ---
Test Reason : CHEST PAIN Blood Pressure : / mmHG Vent. Rate : 076 BPM Atrial Rate : 076 BPM P-R Int : 170 ms QRS Dur : 088 ms QT Int : 364 ms P-R-T Axes : 008 007 026 degrees QTc Int : 409 ms Normal sinus rhythm Normal ECG When compared with ECG of 21-MAY-2021 14:35, Criteria for Inferior infarct are no longer Present Referred By: Generic ED Physician Electronically Signed By:PAOLO MAURO MD
[2022-02-19 10:37] VITALS: BP 119/72; PULSE 75; RESP 20; TEMP 36.6; O2SAT 98; BMI 34.2
[2022-02-19 10:54] LABS: MANUAL DIFF FLAG NO
[2022-02-19 10:58] LABS: Basophils Absolute Auto 0.1 X10*3/uL (0.0-0.2); Basophils Percent Auto 0.5 % (0-2); Eosinophils Absolute Auto 0.1 X10*3/uL (0.0-0.4); Eosinophils Percent Auto 1.4 % (0-4); Hematocrit 49.6 % (42.0-52.0); Hemoglobin 15.9 g/dl (14.0-18.0); Imm Gran Abs Auto 0.12 X10*3/uL (0.00-0.03); Imm Gran Pct Auto 1.2 % (0.0-0.4); Lymphocytes Absolute Auto 2.8 X10*3/uL (1.2-4.9); Lymphocytes Percent Auto 27.8 % (20-40); Mean Corpuscular HGB Conc 32.1 g/dl (31.0-36.0); Mean Corpuscular Hemoglobin 27.9 pg (27.0-33.0); Mean Corpuscular Volume 87.2 fL (80.0-98.0); Mean Platelet Volume 9.3 fL (9.4-12.4); Monocytes Percent Auto 9.6 % (2-11); Neutrophils Absolute Auto 5.9 x10*3/uL (2.0-8.3); Neutrophils Percent Auto 59.5 % (45-73); Platelet Count 208 X10*3/uL (160-400); Red Blood Count 5.69 X10*6/uL (4.60-5.80); Red Cell Distribution Width 14.6 % (11.0-16.0); White Blood Count 9.9 X10*3/uL (4.8-10.8)
[2022-02-19 11:11] LABS: Anion Gap 17 (12-20); Blood Urea Nitrogen 24 mg/dL (9-16); Calcium 9.6 mg/dL (8.4-10.2); Carbon Dioxide 19 mmol/L (22-29); Chloride 106 mmol/L (96-108); Creatinine Clr Calc Pharmacy 70.5; Estimated Glomerular Filt Rate 53; Glucose Random 98 mg/dL (60-115); Potassium 4.4 mmol/L (3.3-5.1); Sodium 138 mmol/L (135-145)
[2022-02-19 11:20] LABS: B Type Natriuretic Peptide 28 pg/mL (<100); Troponin-I High Sensitivity < 3.5 ng/L (<3.5-35.0)
[2022-02-19 11:24] LABS: COVID-19 Test Negative (Negative)
--- NOTE | 2022-02-19 11:54 | ED_ITS ---
HPI - Chest Pain General Chief Complaint: Chest Pain Stated Complaint: Heart issues/not feeling well Time Seen by Provider: 02/19/22 11:38 Source: patient Mode of arrival: ambulatory History of Present Illness HPI narrative: 67-year-old male with a past medical history of HTN, HLD, CAD s/p LAD stent, ostial diagonal stenosis with abnormal iFR sw/p T and protrusion startegy, on Plavix an ASA, presenting to the ED complaining of diaphoresis around 9:30-10AM while at home getting ready for dinner alliance party. Reports mild associated SOB. Adm its symptoms lasted about 1 hour, until his ED arrival. Denies symptoms at present. Denies chest pain, cough, fever, pedal edema, abdominal pain, nausea/vomiting, recent travel Pertinent past history: coronary artery disease Related Data Home Medications Medication Instructions Recorded Confirmed aspirin 81 mg tablet,delayed 81 mg PO DAILY 11/24/20 12/28/21 release allopurinol 300 mg tablet 300 mg PO DAILY 01/24/21 12/28/21 metoprolol succinate 50 mg 50 mg PO DAILY 07/27/21 12/28/21 tablet,extended release 24 hr sucralfate 1 gram tablet 1 g PO TID 11/08/21 12/28/21 oxycodone 5 mg capsule 2.5 mg PO BID PRN 12/28/21 12/28/21 Previous Rx's Medication Instructions Recorded valsartan 160 mg tablet 160 mg PO DAILY #60 tabs 07/20/21 clopidogrel 75 mg tablet 75 mg PO DAILY #90 tabs 12/30/21 bempedoic acid 180 mg tablet 180 mg PO DAILY #30 tabs 02/15/22 (Nexletol) Allergies Allergy/AdvReac Type Severity Reaction Status Date / Time Nupcgde-DGI-IrK Reductase Allergy Intermediate MUSCLE Verified 01/10/22 11:44 Inhibitor WEAKNESS [[id number] REDUCTASE INHIBITOR] alirocumab AdvReac Severe Cough Verified 01/10/22 11:44 [From Praluent Pen] Review of Systems Review of Systems: Constitutional: No Fever, No Chills, No Fatigue, No Malaise, + diaphoresis ENT/Mouth: No Ear Pain, No Nasal Congestion, No sore throat, No Rhinorrhea, No Swallowing Difficulty Eyes: No Eye Pain, No Swelling, No Redness, No Vision Changes Cardiovascular: No Chest Pain, + SOB, No Dyspnea on Exertion, No Orthopnea, No Edema, No Palpitations Respiratory: No Cough, No Sputum, No Dyspnea Gastrointestinal: No Nausea, No Vomiting, No Diarrhea, No Constipation, No Abdominal pain Genitourinary: No Dysuria, No Urinary Frequency, No Hematuria, No Flank Pain Musculoskeletal: No joint pain, No Myalgias, No Joint Swelling Skin: No Skin Lesions, No rash Neuro: No Weakness, No Numbness, No Paresthesias, No Loss of Consciousness, No Dizziness, No Headache Yes all other systems are reviewed and are negative Constitutional: Constitutional: Reports as per [facility] Past Medical History Attestation statement: The following information was validated with the patient. Medical History Arthritis Cough Fusion of lumbosacral spine GERD (gastroesophageal reflux disease) Gout Hoarseness HTN (hypertension) Hyperlipemia Kidney stone Myocardial infarct Pulmonary nodule Tubular adenoma Surgical History H/O colonoscopy H/O lithotripsy H/O spinal fusion History of cardiac cath History of esophagogastroduodenoscopy (EGD) History of mandibular surgery History of total left knee replacement Family History Family History Mother Colon cancer Father Alzheimer's dementia S/P triple vessel bypass Social History Social History Alcohol intake: never Patient Tobacco Use Status: Never used Tobacco Second Hand Smoke Exposure: No Use of substances other than those prescribed or required for medical reasons: No Advance Directives: No Advance Directives Information Provided: Yes Physical Exam Vital Signs: Vital Signs: Last Vital Signs Temp 97.9 F 02/19/22 13:38 Pulse 65 02/19/22 13:38 Resp 16 02/19/22 13:38 BP 135/73 02/19/22 13:38 Pulse Ox 97 02/19/22 13:38 O2 Del Method 02/19/22 13:38 BMI result Body Mass Index 34.2 Const: General: cooperative, healthy appearing, comfortable, no acute distress, alert and awake; No diaphoretic Orientation/consciousness: patient oriented x3 Limitations: no limitations HEENT: Head: Yes normal to inspection and Yes atraumatic Ears: hearing grossly normal bilaterally General nose exam: Normal external nose present Face and sinus: Yes normal facial exam Eyes: General: appearance normal, both eyes and all related structures EOM: EOMs intact bilaterally Neck: Neck: Yes normal visual inspection and Yes no meningeal signs Resp: Effort & Inspection: normal respiratory effort and no respiratory distress Auscultation: clear to auscultation bilaterally, no crackles, no rales, no rhonchi and no wheezes Cardio: Rate: regular rate Heart sounds: S1 normal heart sound present and S2 normal heart sound present GI: Inspection: Yes normal to inspection Palpation (GI): Soft to palpation, nontender, no guarding and not rigid : General: Yes no CVA tenderness Back/Spine/Pelvis: Back: no CVA tenderness Skin: Rashes: no rashes Wounds: no wounds Neuro: General: patient oriented x3, tone normal and no meningeal signs Gait exam (Neuro): Normal gait present Extrem: General: Yes normal to inspection, Yes no pedal edema and Yes no calf tenderness Course Course Course Narrative: -1200--no leukocytosis. H&H stable. Bilirubin chronically elevated. BUN chronically elevated. Initial troponin negative > will obtain 3 hour repeat -1345--repeat troponin drawn. CXR still pending. Patient would like to be discharged prior to results, states he has a dinner alliance party and multiple people showing about his house today. Will sign out AMA. Is A&O x3/competent to make his own decisions and aware of risks. Always welcome to return -1414--repeat troponin equivocal, MS unlikely MDM - Chest Pain MDM Narrative Medical decision making narrative: 67-year-old male with a past medical history of HTN, HLD, CAD s/p LAD stent, ostial diagonal stenosis with abnormal iFR sw/p T and protrusion startegy, on Plavix an ASA, presenting to the ED complaining of diaphoresis around 9:30-10AM while at home getting ready for dinner alliance party. Reports mild associated SOB. On exam vital signs stable, NAD, nontoxic appearing, lungs CTA, no pedal edema. Concern for atypical ACS. r/o viral illness. Lower suspicion for pneumonia, PE, or CHF Plan: EKG, labs, COVID-19 testing Differential Diagnosis Differential diagnosis: Likely stable angina, unstable angina pectoris, atypical chest pain and chest pain Medical Records Data Attestation: I reviewed the patient's medical records. Lab Data Attestation: I reviewed the patient's lab results. Result diagrams: 02/19/22 10:50 02/19/22 10:50 Labs: Lab Results 02/19/22 02/19/22 02/19/22 Range/Units 10:50 10:50 10:50 WBC 9.9 (4.8-10.8) X10*3/uL RBC 5.69 (4.60-5.80) X10*6/uL Hgb 15.9 (14.0-18.0) g/dl Hct 49.6 (42.0-52.0) % MCV 87.2 (80.0-98.0) fL MCH 27.9 (27.0-33.0) pg MCHC 32.1 (31.0-36.0) g/dl RDW 14.6 (11.0-16.0) % Plt Count 208 (160-400) X10*3/uL MPV 9.3 L (9.4-12.4) fL Immature Gran % (Auto) 1.2 H (0.0-0.4) % Neut % (Auto) 59.5 (45-73) % Lymph % (Auto) 27.8 (20-40) % [place] % (Auto) 9.6 (2-11) % Eos % (Auto) 1.4 (0-4) % Baso % (Auto) 0.5 (0-2) % Lymph # (Auto) 2.8 (1.2-4.9) X10*3/uL [place] # (Auto) 1.0 (0.1-1.2) X10*3/uL Eos # (Auto) 0.1 (0.0-0.4) X10*3/uL Baso # (Auto) 0.1 (0.0-0.2) X10*3/uL Abs Immat Gran (auto) 0.12 H (0.00-0.03) X10*3/uL Absolute Neuts (auto) 5.9 (2.0-8.3) x10*3/uL Absolute Nucleated RBC 0.000 (0.0-0.012) X10*3/uL Nucleated RBC % (auto) 0.0 (0.0-0.2) /100WBC Sodium 138 (135-145) mmol/L Potassium 4.4 (3.3-5.1) mmol/L Chloride 106 (96-108) mmol/L Carbon Dioxide 19 L (22-29) mmol/L Anion Gap 17 (12-20) BUN 24 H D (9-16) mg/dL Creatinine 1.33 (0.5-1.4) mg/dL Estim Creat Clear Calc 70.5 Estimated GFR 53 Random Glucose 98 (60-115) mg/dL Calcium 9.6 (8.4-10.2) mg/dL Magnesium 1.8 (1.6-2.6) mg/dL Total Bilirubin 1.6 H (0.0-1.0) mg/dL Direct Bilirubin 0.4 (0.0-0.5) mg/dL AST 21 (5-37) U/L ALT 26 (0-40) U/L Alkaline Phosphatase 100 (39-117) U/L Troponin I High Sens < 3.5 (<3.5-35.0) ng/L B-Natriuretic Peptide 28 (<100) pg/mL Total Protein 6.4 L (6.5-8.0) g/dL Albumin 3.9 (3.5-5.0) g/dL COVID-19 ([facility]) (Negative) COVID-19 Clin Com 02/19/22 02/19/22 Range/Units 10:50 13:43 WBC (4.8-10.8) X10*3/uL RBC (4.60-5.80) X10*6/uL Hgb (14.0-18.0) g/dl Hct (42.0-52.0) % MCV (80.0-98.0) fL MCH (27.0-33.0) pg MCHC (31.0-36.0) g/dl RDW (11.0-16.0) % Plt Count (160-400) X10*3/uL MPV (9.4-12.4) fL Immature Gran % (Auto) (0.0-0.4) % Neut % (Auto) (45-73) % Lymph % (Auto) (20-40) % [place] % (Auto) (2-11) % Eos % (Auto) (0-4) % Baso % (Auto) (0-2) % Lymph # (Auto) (1.2-4.9) X10*3/uL [place] # (Auto) (0.1-1.2) X10*3/uL Eos # (Auto) (0.0-0.4) X10*3/uL Baso # (Auto) (0.0-0.2) X10*3/uL Abs Immat Gran (auto) (0.00-0.03) X10*3/uL Absolute Neuts (auto) (2.0-8.3) x10*3/uL Absolute Nucleated RBC (0.0-0.012) X10*3/uL Nucleated RBC % (auto) (0.0-0.2) /100WBC Sodium (135-145) mmol/L Potassium (3.3-5.1) mmol/L Chloride (96-108) mmol/L Carbon Dioxide (22-29) mmol/L Anion Gap (12-20) BUN (9-16) mg/dL Creatinine (0.5-1.4) mg/dL Estim Creat Clear Calc Estimated GFR Random Glucose (60-115) mg/dL Calcium (8.4-10.2) mg/dL Magnesium (1.6-2.6) mg/dL Total Bilirubin (0.0-1.0) mg/dL Direct Bilirubin (0.0-0.5) mg/dL AST (5-37) U/L ALT (0-40) U/L Alkaline Phosphatase (39-117) U/L Troponin I High Sens < 3.5 (<3.5-35.0) ng/L B-Natriuretic Peptide (<100) pg/mL Total Protein (6.5-8.0) g/dL Albumin (3.5-5.0) g/dL COVID-19 ([facility]) Negative (Negative) COVID-19 Clin Com See Note ECG Data ECG #1: Attestation: I personally reviewed and interpreted this ECG as follows: ECG interpretation date: 02/19/22 ECG interpretation time: 10:36 Interpretation: EKG normal sinus rhythm 76. Pr interval 170. QTC 409. No STEMI Discharge Plan Discharge Clinical Impression: Diaphoresis Patient Disposition: Left Against Medical Advice Instructions: Chest Pain (DC) Additional Instructions: Your blood work was reassuring, however we recommend you stay for repeat t roponin to rule out any sort of heart attack/ischemia You are leaving against medical advice, however if this lab is elevated I will call you If your symptoms recur, he developed chest pain, shortness of breath, swelling in her legs, fever return to the emergency department immediately Prescriptions: No Action valsartan 160 mg tablet 160 mg PO DAILY Qty: 60 3RF clopidogrel 75 mg tablet 75 mg PO DAILY Qty: 90 1RF Nexletol 180 mg tablet 180 mg PO DAILY Qty: 30 3RF aspirin 81 mg tablet,delayed release (DR/EC) 81 mg PO DAILY allopurinol 300 mg tablet 300 mg PO DAILY metoprolol succinate 50 mg tablet extended release 24 hr 50 mg PO DAILY sucralfate 1 gram tablet 1 g PO TID Rx Instructions: with meals oxycodone 5 mg capsule 2.5 mg PO BID PRN Referrals: [facility] [facility] [Provider Group] - 5 days Stand Alone Forms: Against Medical Advice Interventions: ED Discharge Assessment Last Done: 02/19/22 13:52 Discharge Date/Time: 02/19/22 13:54
[2022-02-19 11:56] VITALS: BP 128/75; PULSE 65; RESP 18; TEMP 36.7; O2SAT 93
--- NOTE | 2022-02-19 11:57 | PC.NURSE ---
patient a&ox3, monitor car operator applied sinus tereza, vss, pt awaiting for cxr, ekg performed in triage, call poole within reach, will continue to monitor
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
--- OUTSIDE RECORDS SUMMARY | 2022-02-19 12:23 | XMS_ITS | Continuity of Care Document ---
:1955 Author Organization [facility] Address [address] [place] [id number] Care Team Providers Name Role Phone Casimiro Thompson MD Primary Care Physician Encounter [facility] Date(s): 12/12/21 - 12/13/[address] [address] Discharge Disposition: A-D/C Home Attending Physician: Forrest Ya MD Admitting Physician: Forrest Ya MD Referring Physician: Forrest Ya MD Allergies, Adverse Reactions, Alerts Substance Reaction Severity Status morphine Active statins muscle weakness Active Praluent Syringe Dysphagia Active Dry cough Medications allopurinol 300 mg oral tablet 300 mg, 1, tablet, By Mouth, Daily, # 90 tablet, Refills 0, Maintenance, 12/12/21 7:13:00 EDT, Partial fill upon patient request if the prescription is for a schedule II opioid drug. Start Date: 12/12/21 Status: Orderedaspirin 81 mg oral delayed release tablet = 81 mg, By Mouth, Daily, # 30 tablet, 11 Refills, Maintenance, 01/04/21 12:10:00 EDT, EC Tablet, [facility], Partial fill upon patient request if the prescription is for a schedule II opioid drug., 186, cm, 01/04/21 9:39:00 EDT, Height Start Date: 01/04/21 Status: Orderedclopidogrel 75 mg oral tablet 75 mg, 1, tablet, By Mouth, Daily, D/C script for ticagrelor. Patient should only be on asprin and clopidogrel. Thanks, # 30 tablet, Refills 11, Tot. Refills 11, Maintenance, 01/04/21 15:32:00 EDT, Route to Pharmacy Electronically, [facility]... Start Date: 01/04/21 Status: OrderedLORazepam 0.5 mg oral tablet 1 tablet = 0.5 mg, By Mouth, Daily at bedtime, PRN Sleep, 0 Refills, Maintenance, 12/12/21 7:12:00 EDT, Tablet, Partial fill upon patient request if the prescription is for a schedule II opioid drug. Start Date: 12/12/21 Status: Orderedmetoprolol 50 mg oral tablet, extended release 50 mg, 1, tablet, By Mouth, Daily at bedtime, # 90 tablet, Refills 3, Tot. Refills 3, Maintenance, 02/27/17 15:15:01, Route to Pharmacy Electronically, [id number], [facility] [id number] Start Date: 02/27/17 Stop Date: 02/22/18 Status: Orderedsucralfate 1 gm oral tablet 1 Gm, 1, tablet, By Mouth, 3 times a day before meals, # 120 tablet, Refills 0, Maintenance, 12/12/21 7:14:00 EDT, Partial fill upon patient request if the prescription is for a schedule II opioid drug. Start Date: 12/12/21 Status: Orderedvalsartan 160 mg oral tablet 160 mg, 1, tablet, By Mouth, Daily, # 30 tablet, Refills 0, Maintenance, 01/04/21 14:37:00 EDT, Partial fill upon patient request if the prescription is for a schedule II opioid drug. Start Date: 01/04/21 Status: Orderedvalsartan 160 mg oral tablet 160 mg, Tablet, By Mouth, 12/13/21 9:00:00 EDT Start Date: 12/13/21 Stop Date: 12/13/21 Status: Completed Problem List Condition Effective Dates Status Health Status Informant Obese class II(Confirmed) Active Vital Signs Most recent to oldest 1 2 3 [Reference Range]: Height 185 cm 185 cm 185 cm (12/13/21 7:29 AM) (12/13/21 4:15 AM) (12/12/21 11: 30 PM) Weight 120 kg 120.8 kg 120.8 kg (12/12/21 3:42 PM) (12/12/21 6:30 AM) (12/12/21 6:3 0 AM) Oxygen Saturation [94-100 %] 95 % 94 % 95 % (12/13/21 7:29 AM) (12/13/21 4:15 AM) (12/12/21 11: 30 PM) Pulse Rate [55-90 bpm] 62 bpm 67 bpm 66 bpm (12/13/21 7:29 AM) (12/13/21 4:15 AM) (12/12/21 11: 30 PM) Body Mass Index [18.5-24.99] 35.06 35.3 *>HHI* *>HHI* (12/12/21 3:42 PM) (12/12/21 6:30 AM) Blood Pressure [90-138/55-84 104/78 mm Hg 104/78 mm Hg 100 /58 mm Hg mm Hg] (12/13/21 8:55 AM) (12/13/21 7:29 AM) (12/13/21 4:1 5 AM) Respiratory Rate [16-30 18 br/min 18 br/min 18 br/mi n br/min] (12/13/21 7:29 AM) (12/13/21 4:15 AM) (12/12/21 11: 30 PM) Temperature [96.8-100.4 DegF] 97.8 DegF 97.8 DegF 97 .7 DegF (12/13/21 7:29 AM) (12/13/21 4:15 AM) (12/12/21 11: 30 PM) Mode of Delivery (Oxygen) Room air Room air Room a ir (12/13/21 7:29 AM) (12/13/21 4:15 AM) (12/12/21 11: 30 PM) Blood pressure sites Arm, left Arm, right Arm, left (12/13/21 7:29 AM) (12/13/21 4:15 AM) (12/12/21 11: 30 PM) Temperature Route Oral Oral Oral (12/13/21 7:29 AM) (12/13/21 4:15 AM) (12/12/21 11: 30 PM) Dry Weight 120.8 kg (12/12/21 6:30 AM) Weight Obtained Via Standing scale Standing scale (12/12/21 6:30 AM) (12/12/21 6:30 AM) Dry Weight Obtained Via Standing scale (12/12/21 6:30 AM) Social History Social History Type Response Smoking Status Never smoker entered on: 10/22/14 Sex
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
--- OUTSIDE RECORDS SUMMARY | 2022-02-19 12:23 | XMS_ITS | Continuity of Care Document ---
:1955 Author Organization [facility] Address [address] [place] [id number] Care Team Providers Name Role Phone Casimiro Thompson MD Primary Care Phys[place] [facility] [place]/04/[address] [id number] Discharge Disposition: A-D/C Home Attending Physician: Forrest Ya MD Admitting Physician: Forrest Ya MD Referring Physician: Forrest Ya MD Allergies, Adverse Reactions, Alerts Substance Reaction Severity Status morphine Active statins muscle weakness Active Medications aspirin 81 mg oral delayed release tablet = 81 mg, By Mouth, Daily, # 30 tablet, 11 Refills, Maintenance, 01/04/21 12:10:00 EDT, EC Tablet, [facility], Partial fill upon patient request [...] 01/04/21 15:32:00 EDT, Route to Pharmacy Electronically, [facility]... Start Date: 01/04/21 Status: Orderedmetoprolol 50 mg oral tablet, extended release 50 mg, 1, tablet, By Mouth, Daily at bedtime, # 90 tablet, Refills 3, Tot. Refills 3, Maintenance, 02/27/17 15:15:01, Route to Pharmacy Electronically, [id number], [facility] [id number] Start Date: 02/27/17 Stop Date: 02/22/18 Status: OrderedRepatha SureClick 140 mg/mL subcutaneous solution ADMINISTER 140MG UNDER THE SKIN EVERY 2 WEEKS Start Date: 01/04/21 Status: Orderedvalsartan 160 mg oral tablet 160 mg, 1, tablet, By Mouth, Daily, # 30 tablet, Refills 0, Maintenance, 01/04/21 14:37:00 EDT, Partial fill upon patient request if the prescription is for a schedule II opioid drug. Start Date: 01/04/21 Status: Ordered Vital Signs Most recent to oldest [Reference 1 2 3 Range]: Height 186 cm 186 cm (01/04/21 9:39 AM) (01/04/21 9:39 AM) Weight 117.8 kg 117.8 kg (01/04/21 9:39 AM) (01/04/21 9:39 AM) Oxygen Saturation [94-100 %] 94 % 95 % 96 % (01/04/21 5:00 PM) (01/04/21 4:30 PM) (01/04/21 4:00 P M) Pulse Rate [55-90 bpm] 61 bpm (01/04/21 9:39 AM) Body Mass Index [18.5-24.99] 34.05 *>HHI* (01/04/21 9:39 AM) Blood Pressure [90-138/55-84 mm 144/94 mm Hg 144/87 mm Hg 145/86 mm Hg Hg] *H* *H* *H* (01/04/21 5:00 PM) (01/04/21 4:30 PM) (01/04/21 4:00 P M) Respiratory Rate [16-30 br/min] 20 br/min 14 br/min 15 br/min (01/04/21 5:00 PM) *L* *L* (01/04/21 4:30 PM) (01/04/21 4:00 PM ) Temperature [96.8-100.4 DegF] 97.4 DegF 97.5 DegF (01/04/21 12:45 PM) (01/04/21 9:39 AM) Liters per Minute 2 L/min 2 L/min 2 L/min (01/04/21 4:30 PM) (01/04/21 4:00 PM) (01/04/21 3:30 P M) Mode of Delivery (Oxygen) Room air Nasal cannula Nasal cannula (01/04/21 5:00 PM) (01/04/21 4:30 PM) (01/04/21 4:00 P M) Blood pressure sites Arm, right (01/04/21 9:39 AM) Temperature Route Temporal Temporal (01/04/21 12:45 PM) (01/04/21 9:39 AM) Weight Obtained Via Standing scale (01/04/21 9:39 AM) Social History Social History Type Response Smoking Status Never smoker entered on: 10/22/14 Sex
[2022-02-19 12:31] LABS: Alanine Aminotransferase 26 U/L (0-40); Albumin Level 3.9 g/dL (3.5-5.0); Alkaline Phosphatase 100 U/L (39-117); Aspartate Amino Transferase 21 U/L (5-37); Bilirubin Direct 0.4 mg/dL (0.0-0.5); Bilirubin Total 1.6 mg/dL (0.0-1.0); Magnesium 1.8 mg/dL (1.6-2.6); Total Protein 6.4 g/dL (6.5-8.0)
[2022-02-19 13:38] VITALS: BP 135/73; PULSE 65; RESP 16; TEMP 36.6; O2SAT 97
--- NOTE | 2022-02-19 13:53 | PC.NURSE ---
pt had repeat labs drawn but left ama as he didnt wish to wait for results of second set of labs, provider was aware and signed ama form with patient.
[2022-02-19 14:09] LABS: Troponin-I High Sensitivity < 3.5 ng/L (<3.5-35.0)
== END 2022-02-19 13:54 | disposition left against medical advice (07) ==
PROVIDERS: Physician Assistant; Emergency Provider Emergency Medicine; PCP Internal Medicine
DX: R07.89 Other chest pain (principal); I25.10 Atherosclerotic heart disease of native coronary artery without angina pectoris; R61 Generalized hyperhidrosis; R06.02 Shortness of breath; Z20.822 Contact with and (suspected) exposure to COVID-19; Z79.899 Other long term (current) drug therapy; Z79.01 Long term (current) use of anticoagulants
CPT/HCPCS: 36415; 71046; 80048; 80076; 83735; 83880; 84484; 85025; 87635; 93005; 99284

== ENCOUNTER → 2022-05-03 15:43 | Outpatient (BNVA) | payer MEDICARE, OTHER, SELFPAY | PROVIDERS: PCP Internal Medicine; Visit Provider Internal Medicine Cardiovascular Disease | DX: I10 Essential (primary) hypertension (principal); I20.8 Other forms of angina pectoris; Z79.02 Long term (current) use of antithrombotics/antiplatelets; Z79.82 Long term (current) use of aspirin | CPT/HCPCS: 93005; 99212 ==

== ENCOUNTER 2022-05-22 06:04 | Day surgery (SDC) | payer MEDICARE, OTHER, SELFPAY ==
[2022-05-16 12:19] VITALS: BMI 32.8
--- NOTE | 2022-05-19 09:56 | MHC.SHP ---
Pre-Procedural Eval Section A Date of Service: 05/19/22 The patient is an INPATIENT: No Changes since office visit: No Cold of Flu in the past 2 weeks, No New Medical Problems, No Changes in Medication and No Patient answered all questions The History & Physical has been completed within 30 days and I have reviewed it.: Yes Section B Chief Complaint: Age-related nuclear cataract, left eye Allergies: Allergies Allergy/AdvReac Type Severity Reaction Status Date / Time Mucznxi-QWP-XyK Reductase Allergy Intermediate MUSCLE Verified 05/03/22 16:01 Inhibitor WEAKNESS [[id number] REDUCTASE INHIBITOR] alirocumab AdvReac Severe Cough Verified 05/03/22 16:01 [From Praluent Pen] Plan Diagnosis/Plan: Unchanged I have reviewed the history and physical and performed a pertinent physical examination on my patient. No changes have occurred unless specified. Time Spent With Patient Time: Total time managing care of this patient today ____ minutes.
[2022-05-22 06:23] VITALS: BP 151/93; PULSE 75; RESP 16; TEMP 36.3; O2SAT 95
[2022-05-22] MEDS: Tetracaine HCl/PF 0.5% Oph Sol 4 ML DROPS 1 DROP EYE-LEFT (06:30)
[2022-05-22] MEDS: Cyclopentolate 1 % Ophth Sol 2 ML DRPBTL 1 DROP EYE-LEFT ×3 (06:32→06:49)
[2022-05-22] MEDS: Tropicamide 1 % Ophth Sol 3 ML BTL 1 DROP EYE-LEFT ×3 (06:35→06:50)
[2022-05-22] MEDS: Lactated Ringers 500 ML 20 ML IVCONT (06:36)
[2022-05-22] MEDS: Ketorolac Tromethamine 0.5% Op 5 ML DROPS 1 DROP EYE-LEFT ×3 (06:37→06:51)
[2022-05-22] MEDS: Phenylephrine HCL 2.5% Oph SoL 2 ML BOTTLE 1 DROP EYE-LEFT ×3 (06:40→06:52)
--- NOTE | 2022-05-22 07:17 | HO.ANESPROP2 ---
[facility] Active Problems Active Problems: All Active Problems (Updated 05/03/22 @ 08:50 by Jeanine Lo RN) Hyperlipidemia (Acute) Essential hypertension (Acute) Dyspnea on exertion (Acute) Stable angina (Acute) S/P coronary angioplasty (Acute) Abdominal pain (Acute) Abnormal stress test (Acute) Pulmonary nodule (Acute) Hoarseness (Acute) Cough (Acute) Fusion of lumbosacral spine (Acute) H/O colonoscopy (Acute) H/O spinal fusion (Acute) Past Medical History Medical History Arthritis Cough Fusion of lumbosacral spine GERD (gastroesophageal reflux disease) Gout Hoarseness HTN (hypertension) Hyperlipemia Kidney stone Myocardial infarct On beta johan at home Pulmonary nodule Tubular adenoma Family History Family History Mother Colon cancer Father Alzheimer's dementia S/P triple vessel bypass Family history of problems with anesthesia: No Surgical History Surgical History H/O colonoscopy H/O lithotripsy H/O spinal fusion History of cardiac cath History of esophagogastroduodenoscopy (EGD) History of mandibular surgery History of total left knee replacement History of Problems with Anesthesia: No Social History Social History Are you a primary home health care worker to a significant other at home: No Do you presently have visiting nurse or other home services: No Alcohol intake: never Patient Tobacco Use Status: Never used Tobacco Second Hand Smoke Exposure: No Use of substances other than those prescribed or required for medical reasons: No Have you been hit, kicked, punched, or otherwise hurt by someone within the past year? If so, by whom?: No Are you DNR?: No Advance Directives: No Advance Directives Information Provided: Yes Advance Directives on File: No Recently lost weight without trying: No Eating poorly because of decreased appetite: No Nutrition Risks: No Nutritional Risk Meds Allergies Allergy/AdvReac Type Severity Reaction Status Date / Time Stvuoak-RMO-WeK Reductase Allergy Intermediate MUSCLE Verified 05/03/22 16:01 Inhibitor WEAKNESS [[id number] REDUCTASE INHIBITOR] morphine Allergy Rash Verified 05/22/22 06:14 alirocumab AdvReac Severe Cough Verified 05/03/22 16:01 [From Praluent Pen] Active Medications: Current Medications Lactated Ringer's (Lr) 500 mls @ 20 mls/hr IVCONT .Q24H MEME Last Admin: 05/22/22 06:36 Dose: 20 mls/hr Povidone Iodine (Povidone Iodine 5 % Ophth Soln 30 Ml Bottle) 1 appl EYE-LEFT PREOP PRN PRN Reason: Pre-Op Surgical Implant Prophy Home Medications Medication Instructions Recorded Confirmed Last Taken Type aspirin 81 mg tablet,delayed 81 mg PO DAILY 11/24/20 05/03/22 10/10/21 History release allopurinol 300 mg tablet 300 mg PO DAILY 01/24/21 05/03/22 Unknown History metoprolol succinate 50 mg 50 mg PO DAILY 07/27/21 05/03/22 Unknown History tablet,extended release 24 hr sucralfate 1 gram tablet 1 g PO TID 11/08/21 05/03/22 Unknown History evolocumab 140 mg/mL subcutaneous mg subcut 05/03/22 05/03/22 Unknown History pen injector (Repatha SureCalebick) Exam Exam Date and Time: May 22, 2022 0717 Height,Weight and Vital Signs: Height 6 ft 1 in Weight 112.945 kg Last Vital Signs Temp 97.4 F 05/22/22 06:23 Pulse 75 05/22/22 06:23 Resp 16 05/22/22 06:23 BP 151/93 H 05/22/22 06:23 Pulse Ox 95 05/22/22 06:23 O2 Del Method 05/22/22 06:23 Airway Mallampati Class: II TM Dist: >3cm Neck ROM: Full Heart: rrr Lungs: cta Assessment and Plan Assessment Anesthesia Assessment: Anesthesia Plan Discussed and Chart Reviewed Final Anesthetic Review Family History of Problems with Anesthesia: No History of Problems with Anesthesia: No NPO: Yes ASA Class: III Final Preanesthetic Review: No Changes in Pt Med Stat, Meds/Allgs Chart Reviewed and Consent Obtained/Reviewed Patient Risk: Intermediate Procedure Risk: Intermediate Anesthetic Plan Anesthetic Plan: MAC: Disposition: Standard PACU
[2022-05-22] MEDS: Famotidine/PF 20 MG/2 ML VIAL IVPUSH (07:23)
[2022-05-22 08:25] VITALS: BP 136/78; PULSE 63; RESP 20; TEMP 36.8; O2SAT 95
--- NOTE | 2022-05-22 08:25 | HO.PNOPHT ---
Ophthalmology Procedure Procedure Date of Service: 05/22/22 Ophthalmology Viscoelastic: Healpricila Duet Dual Pack Pro Ophthalmology Lenses: [id number] (25) Procedure Notes: PREOPERATIVE DIAGNOSIS: Decreased visual acuity left eye secondary to cataract POSTOPERATIVE DIAGNOSIS: Same PROCEDURE: Left cataract extraction with intraocular lens insertion SURGEON: Wilfredo Petit M.D. ANESTHESIA: Topical/MAC ESTIMATED BLOOD LOSS: None COMPLICATIONS: None After obtaining informed consent, the patient was brought to the operation room suite and placed in the supine position. After adequate sedation per anesthesia, topical drops of Tetracaine were given to the left eye. The eye was then prepped and draped in the usual sterile fashion. The operating room microscope was then positioned over the operative eye and a lid speculum placed. A paracentesis was created. Viscoelastic was then instilled into the anterior chamber. A three plane incision was then created temporally, utilizing a 2.85 mm keratome. Capsulotomy forceps were then utilized to create a circular tear capsulotomy. Hydrodissection and hydrodelineation were carried out until adequate mobilization of the nucleus occurred. Phacoemulsification was then utilized to remove the dense central nucleus followed by removal of the cortical material utilizing the automated aspiration irrigation unit. Viscoat elastic was instilled into the posterior capsular bag followed by placement of a posterior chamber intraocular lens without difficulty. The residual Viscoat elastic was then removed utilizing the automated IA machine. The wound was check and found to be watertight. The patient tolerated the procedure well and the lid speculum was removed. Intracameral injection of Vigamox 0.1 mL followed by a subtenon injection of Kenalog-40 0.2 mL were administered. The patient will be seen in the a.m.
== END 2022-05-22 08:34 | disposition home or self-care (01) ==
PROVIDERS: PCP Internal Medicine; Visit Provider Ophthalmology
PROC: (CPT 66985; principal; 2022-05-22 08:00)
DX: H25.12 Age-related nuclear cataract, left eye (principal); H54.7 Unspecified visual loss; H43.22 Crystalline deposits in vitreous body, left eye; I25.10 Atherosclerotic heart disease of native coronary artery without angina pectoris; Z98.61 Coronary angioplasty status; I12.9 Hypertensive chronic kidney disease with stage 1 through stage 4 chronic kidney disease, or unspecified chronic kidney disease; N18.31 Chronic kidney disease, stage 3a; I10 Essential (primary) hypertension; E78.00 Pure hypercholesterolemia, unspecified; M10.9 Gout, unspecified; Z79.899 Other long term (current) drug therapy; Z79.82 Long term (current) use of aspirin; Z88.8 Allergy status to other drugs, medicaments and biological substances
CPT/HCPCS: 66984; J2250; J2405; J3301; V2632

== ENCOUNTER 2022-06-30 07:58 | Outpatient (REF) | payer MEDICARE, OTHER, SELFPAY ==
--- NOTE | ~2022-06-30 | XR_ITS ---
EXAMINATION: XR CHEST CLINICAL INFORMATION: Dyspnea on exertion. COMPARISON: 02/19/2022 chest radiographs. TECHNIQUE: 2 views of the chest were obtained. FINDINGS: No significant abnormality is noted involving the heart, lungs, mediastinum, bony thorax or soft tissues. XR/XR chest 2V IMPRESSION: No acute cardiopulmonary process.
[2022-06-30 08:15] LABS: MANUAL DIFF FLAG NO
[2022-06-30 08:53] LABS: Appearance Urine Cloudy; Color Urine Yellow; Glucose Urine UA Negative (Negative); Leukocyte Esterase Urine Trace (Negative); Nitrite Urine Negative (Negative); PH 5.5 (5.0-9.0); Specific Gravity - Urine 1.015 (1.005-1.025); UMIC TRIGGER UA YES; Urine Blood Large (3+) (Negative); Urine Ketones Negative (Negative); Urine Protein Trace mg/dL (Neg-Trace)
[2022-06-30 08:53] LABS: Basophils Absolute Auto 0.1 X10*3/uL (0.0-0.2); Basophils Percent Auto 0.6 % (0-2); Eosinophils Absolute Auto 0.3 X10*3/uL (0.0-0.4); Eosinophils Percent Auto 2.9 % (0-4); Hematocrit 40.4 % (42.0-52.0); Hemoglobin 12.8 g/dl (14.0-18.0); Imm Gran Abs Auto 0.26 X10*3/uL (0.00-0.03); Imm Gran Pct Auto 2.7 % (0.0-0.4); Lymphocytes Absolute Auto 2.8 X10*3/uL (1.2-4.9); Lymphocytes Percent Auto 28.1 % (20-40); Mean Corpuscular HGB Conc 31.7 g/dl (31.0-36.0); Mean Corpuscular Hemoglobin 28.6 pg (27.0-33.0); Mean Corpuscular Volume 90.4 fL (80.0-98.0); Mean Platelet Volume 9.5 fL (9.4-12.4); Monocytes Absolute Auto 1.1 X10*3/uL (0.1-1.2); Monocytes Percent Auto 10.8 % (2-11); Neutrophils Absolute Auto 5.4 x10*3/uL (2.0-8.3); Neutrophils Percent Auto 54.9 % (45-73); Platelet Count 335 X10*3/uL (160-400); Red Blood Count 4.47 X10*6/uL (4.60-5.80); Red Cell Distribution Width 15.4 % (11.0-16.0); White Blood Count 9.8 X10*3/uL (4.8-10.8)
[2022-06-30 08:56] LABS: INTERNATIONAL NORM RATIO 1.2 (0.9-1.1); Prothrombin Time 13.8 SEC (10.0-13.1)
[2022-06-30 08:58] LABS: D Dimer High Sensitivity 2261 NG/ML
[2022-06-30 08:59] LABS: Bacteria Urine None Seen (None Seen); Hyaline Casts Urine 0-2 /LPF (0-2); RBC Urine >20 /HPF (0-2); Squamous Epithelial Cell Urine 0-2 /HPF (0-2); WBC Urine 0-5 /HPF (0-5)
[2022-06-30 09:31] LABS: Alanine Aminotransferase 23 U/L (0-40); Albumin Level 3.8 g/dL (3.5-5.0); Alkaline Phosphatase 120 U/L (39-117); Anion Gap 16 (12-20); Aspartate Amino Transferase 19 U/L (5-37); Bilirubin Total 1.8 mg/dL (0.0-1.0); Blood Urea Nitrogen 24 mg/dL (9-16); Calcium 9.3 mg/dL (8.4-10.2); Carbon Dioxide 23 mmol/L (22-29); Chloride 105 mmol/L (96-108); Estimated Glomerular Filt Rate > 60; Glucose Random 95 mg/dL (60-115); Potassium 4.8 mmol/L (3.3-5.1); Sodium 139 mmol/L (135-145); Total Protein 6.2 g/dL (6.5-8.0)
[2022-07-03 11:58] LABS: NT-proBNP 70 pg/mL
== END 2022-06-30 07:59 | disposition home or self-care (01) ==
LOC: HO.XRAY 07:58
PROVIDERS: PCP Internal Medicine; Visit Provider Internal Medicine
DX: Z13.89 Encounter for screening for other disorder (principal)
CPT/HCPCS: 36415; 71046; 80053; 81001; 83880; 85025; 85379; 85610; 87086

== ENCOUNTER 2022-06-30 15:20 | Outpatient (REF) | payer MEDICARE, OTHER, SELFPAY ==
--- NOTE | ~2022-06-30 | CT_ITS ---
EXAMINATION: CT ANGIOGRAM OF THE CHEST WITH AND WITHOUT CONTRAST (CT PULMONARY ANGIOGRAM FOR PE) CLINICAL INFORMATION: Reason for Exam Other pulmonary embolism without acute cor pulmonale COMPARISON: 12/28/2021 TECHNIQUE: Prior to contrast administration, noncontrast localization images were obtained. Subsequently, multidetector volumetric imaging was performed from the thoracic inlet to below the diaphragms following the administration of 65 mL Omnipaque 350 intravenous contrast. No contrast reaction reported Sagittal, coronal, and MIP oblique sagittal reformatted images were obtained on the CT workstation, uploaded to PACS, and reviewed. This CT examination was performed using dose optimization techniques as appropriate, variously including the following: *Automated exposure control *Adjustment of mA and/or kV according to patient size (this includes techniques or standardized protocols for targeted exams where dose is matched to indication/reason for exam; i.e. extremities or head) *Use of iterative reconstruction technique Total exam dose-length product 175 mGy-cm FINDINGS: QUALITY OF STUDY/CONTRAST BOLUS: Satisfactory. PULMONARY ARTERIES: No central or segmental pulmonary emboli. THORACIC AORTA: No aneurysm or dissection. LUNG: No focal consolidation, nodules or masses. The central airways are patent. Mild dependent atelectasis on the left. PLEURA: No pleural effusion or pneumothorax. MEDIASTINUM: Normal heart size. No pericardial effusion. No hilar or mediastinal lymphadenopathy. No evidence of septal bowing or right heart strain. CORONARY ARTERY CALCIFICATION: Present. CHEST WALL/AXILLA: No axillary or internal mammary lymphadenopathy. OSSEOUS STRUCTURES: No acute or suspicious osseous abnormality. Mild degenerative changes of the spine. UPPER ABDOMEN: Unremarkable. No reflux of contrast into the hepatic veins to suggest elevated right heart pressures. CT/CT angio chest PE protocol IMPRESSION: No pulmonary embolism or other acute intrathoracic abnormality. VTE: negative
[2022-06-30] MEDS: iohexoL 350 MG/ML 100 ML INFUS..BTL IV (15:56)
== END 2022-06-30 15:21 | disposition home or self-care (01) ==
LOC: HO.CT 15:20
PROVIDERS: PCP Internal Medicine; Visit Provider Internal Medicine
DX: I26.99 Other pulmonary embolism without acute cor pulmonale (principal); I25.10 Atherosclerotic heart disease of native coronary artery without angina pectoris; R00.0 Tachycardia, unspecified; R06.09 Other forms of dyspnea; I10 Essential (primary) hypertension; T14.8XXA Other injury of unspecified body region, initial encounter; R35.0 Frequency of micturition
CPT/HCPCS: 36415; 71046; 71275; 80053; 81001; 83880; 85025; 85379; 85610; 87086; Q9967

== ENCOUNTER 2022-07-10 06:16 | Day surgery (SDC) | payer MEDICARE, OTHER, SELFPAY ==
[2022-07-05 10:52] VITALS: BMI 32.8
--- NOTE | 2022-07-07 09:00 | MHC.SHP ---
Pre-Procedural Eval Section A Date of Service: 07/07/22 The patient is an INPATIENT: No Changes since office visit: No Cold of Flu in the past 2 weeks, No New Medical Problems, No Changes in Medication and No Patient answered all questions The History & Physical has been completed within 30 days and I have reviewed it.: Yes Section B Chief Complaint: Age-related nuclear cataract, right eye Allergies: Allergies Allergy/AdvReac Type Severity Reaction Status Date / Time Snvofgh-QSX-WbA Reductase Allergy Intermediate MUSCLE Verified 07/05/22 10:33 Inhibitor WEAKNESS [LENZJGG-DNX-JZF REDUCTASE INHIBITOR] morphine Allergy Rash Verified 07/05/22 10:33 alirocumab AdvReac Severe Cough Verified 07/05/22 10:33 [From Praluent Pen] Plan Diagnosis/Plan: Unchanged I have reviewed the history and physical and performed a pertinent physical examination on my patient. No changes have occurred unless specified. Time Spent With Patient Time: Total time managing care of this patient today ____ minutes.
--- NOTE | 2022-07-07 10:13 | P.CONAN_ITS ---
Documented by User: Arina Ramsey NP 07/07/22 10:14 HPI - Anesthesia Eval Consult details Narrative: 67yo M for Right Cataract Extraction IOL Insertion PCP cleared Left eye 05/22/22 with MAC: Midaz 2, Zofran 4 PMFSH Active Problems Active Problems: All Active Problems (Updated 07/05/22 @ 10:47 by Jeanine Lo, RN) Hyperlipidemia (Acute) Essential hypertension (Acute) Dyspnea on exertion (Acute) Stable angina (Acute) S/P coronary angioplasty (Acute) Abdominal pain (Acute) Abnormal stress test (Acute) Pulmonary nodule (Acute) Hoarseness (Acute) Cough (Acute) Fusion of lumbosacral spine (Acute) H/O colonoscopy (Acute) H/O spinal fusion (Acute) Past Medical History Medical History (Updated 07/05/22 @ 10:47 by Jeanine Lo, RN) Arthritis Cough Fusion of lumbosacral spine GERD (gastroesophageal reflux disease) Gout Hoarseness HTN (hypertension) Hyperlipemia Kidney stone Myocardial infarct On beta johan at home Pulmonary nodule Tubular adenoma Family History Family History Mother Colon cancer Father Alzheimer's dementia S/P triple vessel bypass Family history of problems with anesthesia: No Surgical History Surgical History (Updated 07/05/22 @ 10:47 by Jeanine Lo RN) H/O colonoscopy H/O lithotripsy H/O spinal fusion History of cardiac cath History of esophagogastroduodenoscopy (EGD) History of mandibular surgery History of total left knee replacement History of total right knee replacement (TKR) Hx of left cataract extraction History of Problems with Anesthesia: No Social History Social History Are you a primary health and social care teacher to a significant other at home: No Do you presently have visiting nurse or other home services: No Alcohol intake: never Patient Tobacco Use Status: Never used Tobacco Second Hand Smoke Exposure: No Use of substances other than those prescribed or required for medical reasons: No Have you been hit, kicked, punched, or otherwise hurt by someone within the past year? If so, by whom?: No Are you DNR?: No Advance Directives: No Advance Directives Information Provided: Yes Advance Directives on File: No Recently lost weight without trying: No Eating poorly because of decreased appetite: No Nutrition Risks: No Nutritional Risk Poor oral hygiene: No Meds Allergies Allergy/AdvReac Type Severity Reaction Status Date / Time Ymeqvej-YLH-QbA Reductase Allergy Intermediate MUSCLE Verified 07/05/22 10:33 Inhibitor WEAKNESS [GWEQJVQ-HKE-NHS REDUCTASE INHIBITOR] morphine Allergy Rash Verified 07/05/22 10:33 alirocumab AdvReac Severe Cough Verified 07/05/22 10:33 [From Praluent Pen] Home Medications Medication Instructions Recorded Confirmed Last Taken Type aspirin 81 mg tablet,delayed 81 mg PO DAILY 11/24/20 05/31/22 10/10/21 History release allopurinol 300 mg tablet 300 mg PO DAILY 01/24/21 05/31/22 Unknown History metoprolol succinate 50 mg 50 mg PO DAILY 07/27/21 05/31/22 Unknown History tablet,extended release 24 hr sucralfate 1 gram tablet 1 g PO TID 11/08/21 05/31/22 Unknown History lorazepam 0.5 mg tablet 0.5 mg PO BEDTIME PRN Sleep 07/05/22 07/05/22 Unknown History omeprazole 20 mg capsule,delayed 20 mg PO DAILY 07/05/22 07/05/22 Unknown History release oxycodone 10 mg tablet 0.5 - 1 tab PO Q4-6H PRN pain 07/05/22 07/05/22 Unknown History Exam Exam Date and Time: July 07, 2022 1013 Height,Weight and Vital Signs: Height 6 ft 1 in Weight 112.9 kg Assessment and Plan Assessment Anesthesia Assessment: Chart Reviewed Final Anesthetic Review Family History of Problems with Anesthesia: No History of Problems with Anesthesia: No Documented by User: Andrew Ford MD 07/10/22 10:46 HPI - Anesthesia Eval Consult details Narrative: 67yo M for Right Cataract Extraction IOL Insertion PCP cleared Left eye 05/22/22 with MAC: Midaz 2, Zofran 4 CAD s/p stent . As per patient he has not interrupted his anticoagulation PMF Past Medical History Medical History (Updated 07/05/22 @ 10:47 by Jeanine Lo RN) Arthritis Cough Fusion of lumbosacral spine GERD (gastroesophageal reflux disease) Gout Hoarseness HTN (hypertension) Hyperlipemia Kidney stone Myocardial infarct On beta johan at home Pulmonary nodule Tubular adenoma Family History Family History Mother Colon cancer Father Alzheimer's dementia S/P triple vessel bypass Surgical History Surgical History (Updated 07/05/22 @ 10:47 by Jeanine Lo RN) H/O colonoscopy H/O lithotripsy H/O spinal fusion History of cardiac cath History of esophagogastroduodenoscopy (EGD) History of mandibular surgery History of total left knee replacement History of total right knee replacement (TKR) Hx of left cataract extraction Social History Social History Are you a primary health and social care teacher to a significant other at home: No Do you presently have visiting nurse or other home services: No Alcohol intake: never Patient Tobacco Use Status: Never used Tobacco Second Hand Smoke Exposure: No Use of substances other than those prescribed or required for medical reasons: No Have you been hit, kicked, punched, or otherwise hurt by someone within the past year? If so, by whom?: No Are you DNR?: No Advance Directives: No Advance Directives Information Provided: Yes Advance Directives on File: No Recently lost weight without trying: No Eating poorly because of decreased appetite: No Nutrition Risks: No Nutritional Risk Poor oral hygiene: No Meds Allergies Allergy/AdvReac Type Severity Reaction Status Date / Time Ojhsgzo-DBC-AyD Reductase Allergy Intermediate MUSCLE Verified 07/05/22 10:33 Inhibitor WEAKNESS [VBQPIAJ-OJV-BBO REDUCTASE INHIBITOR] morphine Allergy Rash Verified 07/05/22 10:33 alirocumab AdvReac Severe Cough Verified 07/05/22 10:33 [From Praluent Pen] Home Medications Medication Instructions Recorded Confirmed Last Taken Type aspirin 81 mg tablet,delayed 81 mg PO DAILY 11/24/20 05/31/22 10/10/21 History release allopurinol 300 mg tablet 300 mg PO DAILY 01/24/21 05/31/22 Unknown History metoprolol succinate 50 mg 50 mg PO DAILY 07/27/21 05/31/22 Unknown History tablet,extended release 24 hr sucralfate 1 gram tablet 1 g PO TID 11/08/21 05/31/22 Unknown History lorazepam 0.5 mg tablet 0.5 mg PO BEDTIME PRN Sleep 07/05/22 07/05/22 Unknown History omeprazole 20 mg capsule,delayed 20 mg PO DAILY 07/05/22 07/05/22 Unknown History release oxycodone 10 mg tablet 0.5 - 1 tab PO Q4-6H PRN pain 07/05/22 07/05/22 Unknown History Exam Airway Mallampati Class: IV TM Dist: >3cm Neck ROM: Full Loose/Missing/Broken Teeth: Yes (Bridge) Heart: S1,S2 Lungs: b/l breath sounds Assessment and Plan Final Anesthetic Review NPO: Yes ASA Class: III Final Preanesthetic Review: Meds/Allgs Chart Reviewed, Consent Obtained/Reviewed and Anes Risks/Benef Reviewed Patient Risk: Intermediate Procedure Risk: Intermediate Anesthetic Plan Anesthetic Plan: MAC: Disposition: Standard PACU
[2022-07-10 06:36] VITALS: BP 147/89; PULSE 72; RESP 16; TEMP 35.6; O2SAT 98
[2022-07-10] MEDS: Lactated Ringers 500 ML 50 ML IV (06:41)
[2022-07-10] MEDS: Tetracaine HCl/PF 0.5% Oph Sol 4 ML DROPS 1 DROP EYE-RIGHT (06:42)
[2022-07-10] MEDS: Cyclopentolate 1 % Ophth Sol 2 ML DRPBTL 1 DROP EYE-RIGHT ×3 (06:43→06:55)
[2022-07-10] MEDS: Tropicamide 1 % Ophth Sol 3 ML BTL 1 DROP EYE-RIGHT ×3 (06:45→06:55)
[2022-07-10] MEDS: Phenylephrine HCL 2.5% Oph SoL 2 ML BOTTLE 1 DROP EYE-RIGHT ×3 (06:47→06:57)
[2022-07-10] MEDS: Ketorolac Tromethamine 0.5% Op 5 ML DROPS 1 DROP EYE-RIGHT ×3 (06:47→06:56)
--- NOTE | 2022-07-10 08:24 | HO.PNOPHT ---
Ophthalmology Procedure Procedure Date of Service: 07/10/22 Ophthalmology Viscoelastic: Rhiannon De Oliveirat Dual Pack Pro Ophthalmology Lenses: TECNIS [id number] Procedure Notes: PREOPERATIVE DIAGNOSIS: Decreased visual acuity right eye secondary to cataract POSTOPERATIVE DIAGNOSIS: Same PROCEDURE: Right cataract extraction with intraocular lens insertion SURGEON: Wilfredo Petit M.D. ANESTHESIA: Topical/MAC ESTIMATED BLOOD LOSS: None COMPLICATIONS: None After obtaining informed consent, the patient was brought to the operating room suite and placed in the supine position. After adequate sedation per anesthesia, topical drops of Tetracaine were given to the right eye. The eye was then prepped and draped in the usual sterile fashion. The operating room microscope was then positioned over the operative eye and a lid speculum placed. A paracentesis was created. Viscoelastic was then instilled into the anterior chamber. A three plane incision was then created temporally, utilizing a 2.85 mm keratome. Capsulotomy forceps were then utilized to create a circular tear capsulotomy. Hydrodissection and hydrodelineation were carried out until adequate mobilization of the nucleus occurred. Phacoemulsification was then utilized to remove the dense central nucleus followed by removal of the cortical material utilizing the automated aspiration irrigation unit. Viscoelastic was instilled into the posterior capsular bag followed by placement of a posterior chamber intraocular lens without difficulty. The residual Viscoelastic was then removed utilizing the automated IA machine. The wound was checked and found to be watertight. The patient tolerated the procedure well and the lid speculum was removed. Intracameral injection of Vigamox 0.1 mL followed by a subtenon injection of Kenalog-40 0.2 mL were administered. The patient will be seen in the a.m.
[2022-07-10 08:52] VITALS: BP 122/76; PULSE 69; RESP 20; TEMP 36.1; O2SAT 95
== END 2022-07-10 08:55 | disposition home or self-care (01) ==
PROVIDERS: PCP Internal Medicine; Visit Provider Ophthalmology
PROC: (CPT 66985; principal; 2022-07-10 08:30)
DX: H25.11 Age-related nuclear cataract, right eye (principal); H18.413 Arcus senilis, bilateral; H43.22 Crystalline deposits in vitreous body, left eye; H54.7 Unspecified visual loss; I10 Essential (primary) hypertension; M10.9 Gout, unspecified; R91.1 Solitary pulmonary nodule; I25.2 Old myocardial infarction; I25.10 Atherosclerotic heart disease of native coronary artery without angina pectoris; Z95.5 Presence of coronary angioplasty implant and graft; R42 Dizziness and giddiness; Z79.01 Long term (current) use of anticoagulants; Z79.82 Long term (current) use of aspirin; Z79.899 Other long term (current) drug therapy; Z88.8 Allergy status to other drugs, medicaments and biological substances
CPT/HCPCS: 66984; J2250; J3010; J3301; V2632

== ENCOUNTER → 2022-07-12 14:34 | Outpatient (REF) | payer MEDICARE, OTHER, SELFPAY ==
[2022-07-12 15:55] LABS: Hematocrit 43.1 % (42.0-52.0); Hemoglobin 13.5 g/dl (14.0-18.0); Mean Corpuscular HGB Conc 31.3 g/dl (31.0-36.0); Mean Corpuscular Hemoglobin 28.2 pg (27.0-33.0); Mean Corpuscular Volume 90.2 fL (80.0-98.0); Platelet Count 270 X10*3/uL (160-400); Red Blood Count 4.78 X10*6/uL (4.60-5.80); Red Cell Distribution Width 15.5 % (11.0-16.0)
[2022-07-12 16:26] LABS: Iron 52 mcg/dL (45-160); Percent Iron Saturation 20 % (15-50); Total Iron Binding Capacity 265 mcg/dL (228-428); Unsaturated Iron Binding 213 ug/dL
[2022-07-12 16:41] LABS: Ferritin 230 ng/mL (20-250)
== END ==
LOC: HO.CARD 14:34
PROVIDERS: PCP Internal Medicine; Referring Provider Internal Medicine; Visit Provider Internal Medicine Cardiovascular Disease
DX: I10 Essential (primary) hypertension (principal); R06.00 Dyspnea, unspecified; R06.02 Shortness of breath; R53.83 Other fatigue; Z79.899 Other long term (current) drug therapy; Z96.651 Presence of right artificial knee joint; Z79.01 Long term (current) use of anticoagulants; Z79.82 Long term (current) use of aspirin; Z98.61 Coronary angioplasty status; R58 Hemorrhage, not elsewhere classified; Z98.890 Other specified postprocedural states
CPT/HCPCS: 36415; 82728; 83540; 85027; 93005; 99212

== ENCOUNTER → 2022-07-25 08:46 | Outpatient (REF) | payer MEDICARE, OTHER, SELFPAY ==
--- NOTE | ~2022-07-25 | NM_ITS ---
Myocardial perfusion study Indication: Shortness of breath evaluate for myocardial ischemia Technique: The patient was brought in for a Lexiscan perfusion study on 07/25/2022. Patient performed low-level exercise and was injected 0.4 mg of Lexiscan intravenously. Within a minute of injection, 40 mCi of sestamibi was given intravenously. Images were obtained using the SPECT gamma camera interlaced with the gating device. Images were obtained in supine position. Resting perfusion study was performed on 07/26/2022. Patient was administered 40 mCi of sestamibi intravenously at rest. Images were then obtained in supine position. Images obtained with and without CT attenuation. Total DLP 119 mGy-cm. Images were processed with the software and compared side to side in short axis, horizontal long axis and vertical long axis views. Findings: The stress perfusion study showed non attenuated images show mildly reduced uptake in the basal and mid segments of the inferior wall of the LV myocardium. Remainder of the LV myocardium is normally perfused. Attenuation corrected images show normal uptake of radiotracer in all segments of LV myocardium. The gated study shows normal LV systolic function with calculated LVEF of 55%. LV cavity is normal in size. The gated study shows normal systolic wall thickening and contraction of segments. Resting study shows no change in perfusion pattern compared to stress perfusion study. Gating at rest reveals normal systolic wall motion with ejection fraction at 72%. The findings are consistent with normal myocardial perfusion. NM/NM emelina perf SPECT rest & str Impression: 1. Myocardial perfusion imaging study shows normal myocardial perfusion 2. Gated LVEF is 55% 3. Transient ischemic dilatation not present EKG is nondiagnostic for ischemia
--- NOTE | 2022-07-25 08:49 | CA_ITS ---
Acquisition Time: 2022-07-25 08:58:02 Total Exercise Time: 00:02:00 Test Indications: Dyspnea Medications: PLAVIX ASA METOPROLOL OMEPRAZOLE Protocol: LEXISCAN Max HR: 096 BPM 63% of Pred: 151 BPM Max BP: 136/086 mmHG Max Work Load: 1.0 METS Pharmacological stress test with Lexiscan injection while sitting and kicking his legs, without anginal symptoms, without arrythmia, with normotensive response to injection, with nondiagnostic EKG for ischemia. In recovery he reported headache and was treated with Aminophylline 75mg IVP to reverse Lexiscan with resolution of symptom. Nuclear images pending. Test reviewed with Dr Agudelo. Referred By: Forrest Ya Overread By: NIMA SIFUENTES
== END ==
LOC: HO.CARD 08:46
PROVIDERS: PCP Internal Medicine; Visit Provider Internal Medicine Cardiovascular Disease
DX: R06.00 Dyspnea, unspecified (principal)
CPT/HCPCS: 78452; 93017; A9500; J0280; J2785

== ENCOUNTER 2022-08-18 14:10 | Outpatient (REF) | payer MEDICARE, OTHER, SELFPAY ==
[2022-08-18 14:34] LABS: MANUAL DIFF FLAG NO
[2022-08-18 14:44] LABS: Basophils Absolute Auto 0.1 X10*3/uL (0.0-0.2); Basophils Percent Auto 0.4 % (0-2); Eosinophils Absolute Auto 0.7 X10*3/uL (0.0-0.4); Eosinophils Percent Auto 6.4 % (0-4); Hematocrit 49.4 % (42.0-52.0); Hemoglobin 15.8 g/dl (14.0-18.0); Imm Gran Abs Auto 0.16 X10*3/uL (0.00-0.03); Imm Gran Pct Auto 1.4 % (0.0-0.4); Lymphocytes Absolute Auto 2.7 X10*3/uL (1.2-4.9); Lymphocytes Percent Auto 23.9 % (20-40); Mean Corpuscular Hemoglobin 27.9 pg (27.0-33.0); Mean Corpuscular Volume 87.3 fL (80.0-98.0); Mean Platelet Volume 9.7 fL (9.4-12.4); Monocytes Absolute Auto 0.9 X10*3/uL (0.1-1.2); Neutrophils Absolute Auto 6.8 x10*3/uL (2.0-8.3); Neutrophils Percent Auto 59.9 % (45-73); Platelet Count 258 X10*3/uL (160-400); Red Blood Count 5.66 X10*6/uL (4.60-5.80); Red Cell Distribution Width 14.6 % (11.0-16.0); White Blood Count 11.3 X10*3/uL (4.8-10.8)
[2022-08-18 14:56] LABS: Appearance Urine Clear; Color Urine Yellow; Glucose Urine UA Negative (Negative); Leukocyte Esterase Urine Small (1+) (Negative); Nitrite Urine Negative (Negative); PH 5.5 (5.0-9.0); Specific Gravity - Urine 1.015 (1.005-1.025); UMIC TRIGGER UA YES; Urine Blood Large (3+) (Negative); Urine Ketones Negative (Negative); Urine Protein 30 (1+) mg/dL (Neg-Trace)
[2022-08-18 15:00] LABS: Bacteria Urine None Seen (None Seen); Hyaline Casts Urine 0-2 /LPF (0-2); RBC Urine >20 /HPF (0-2); Squamous Epithelial Cell Urine 0-2 /HPF (0-2); WBC Urine 21-50 /HPF (0-5)
[2022-08-18 15:21] LABS: Alanine Aminotransferase 15 U/L (0-40); Albumin Level 4.2 g/dL (3.5-5.0); Alkaline Phosphatase 107 U/L (39-117); Anion Gap 14 (12-20); Aspartate Amino Transferase 15 U/L (5-37); Blood Urea Nitrogen 20 mg/dL (9-16); Carbon Dioxide 25 mmol/L (22-29); Chloride 105 mmol/L (96-108); Estimated Glomerular Filt Rate 54; Glucose Random 96 mg/dL (60-115); Potassium 4.7 mmol/L (3.3-5.1); Sodium 139 mmol/L (135-145); Total Protein 6.5 g/dL (6.5-8.0)
== END 2022-08-18 14:11 | disposition home or self-care (01) ==
LOC: HO.LAB 14:10
PROVIDERS: PCP Internal Medicine; Visit Provider Internal Medicine
DX: I10 Essential (primary) hypertension (principal); R35.0 Frequency of micturition
CPT/HCPCS: 36415; 80053; 81001; 85025; 87086

== ENCOUNTER → 2022-09-14 13:42 | Outpatient (BNVA) | payer MEDICARE, OTHER, SELFPAY | PROVIDERS: PCP Internal Medicine; Referring Provider Internal Medicine; Visit Provider Nurse Practitioner Family | DX: Z01.810 Encounter for preprocedural cardiovascular examination (principal); I25.10 Atherosclerotic heart disease of native coronary artery without angina pectoris; E78.2 Mixed hyperlipidemia; I10 Essential (primary) hypertension; Z79.02 Long term (current) use of antithrombotics/antiplatelets; Z79.82 Long term (current) use of aspirin; Z79.899 Other long term (current) drug therapy; Z95.5 Presence of coronary angioplasty implant and graft | CPT/HCPCS: 99212 ==

== ENCOUNTER 2022-12-04 09:10 | Day surgery (SDC) | payer MEDICARE, OTHER, SELFPAY ==
[2022-11-28 10:13] VITALS: BMI 33.0
--- NOTE | 2022-12-01 08:05 | MHC.SHP ---
Pre-Procedural Eval Section A Date of Service: 12/01/22 The patient is an INPATIENT: No Changes since office visit: No Cold of Flu in the past 2 weeks, No New Medical Problems, No Changes in Medication and No Patient answered all questions The History & Physical has been completed within 30 days and I have reviewed it.: Yes Section B Chief Complaint: Dermatochalasis of right,left upper eyelid Allergies: Allergies Allergy/AdvReac Type Severity Reaction Status Date / Time Fhudtbg-RTC-OjR Reductase Allergy Intermediate MUSCLE Verified 09/14/22 13:51 Inhibitor WEAKNESS [TKRNGSC-FHJ-AAY REDUCTASE INHIBITOR] morphine Allergy Rash Verified 09/14/22 13:51 alirocumab AdvReac Severe Cough Verified 09/14/22 13:51 [From Praluent Pen] Plan Diagnosis/Plan: Unchanged I have reviewed the history and physical and performed a pertinent physical examination on my patient. No changes have occurred unless specified. Time Spent With Patient Time: Total time managing care of this patient today ____ minutes.
--- NOTE | 2022-12-04 11:03 | HO.ANESPROP2 ---
HPI - Anesthesia Eval Consult details Narrative: 67 yo male patient for Bilateral blepharoplasty PMFSH Active Problems Active Problems: All Active Problems (Updated 12/04/22 @ 11:02 by Lesia Jarrett MD) Hyperlipidemia (Acute) Essential hypertension (Acute) Dyspnea on exertion (Acute) Stable angina (Acute) S/P coronary angioplasty (Acute) Abdominal pain (Acute) Abnormal stress test (Acute) CAD (coronary artery disease) (Acute)- diagnosed with w/u for suprasternal fullness. Never had chest pain. No symptoms recently Stented coronary artery (Acute) Preop cardiovascular exam (Acute) Kidney stone (Acute) History of cardiac cath (Acute) Pulmonary nodule (Acute) Hoarseness (Acute) Cough (Acute) Fusion of lumbosacral spine (Acute) H/O colonoscopy (Acute) H/O spinal fusion (Acute) Past Medical History Medical History Arthritis Cough Fusion of lumbosacral spine GERD (gastroesophageal reflux disease) Gout Hoarseness HTN (hypertension) Hyperlipemia Kidney stone Myocardial infarct On beta johan at home Pulmonary nodule Tubular adenoma Family History Family History Mother Colon cancer Father Alzheimer's dementia S/P triple vessel bypass Family history of problems with anesthesia: No Surgical History Surgical History H/O colonoscopy H/O lithotripsy H/O spinal fusion History of cardiac cath History of esophagogastroduodenoscopy (EGD) History of mandibular surgery History of total left knee replacement History of total right knee replacement (TKR) Hx of cystoscopy Hx of left cataract extraction History of Problems with Anesthesia: No Social History Social History Are you a primary career guidance technician to a significant other at home: No Do you presently have visiting nurse or other home services: No Alcohol intake: never Patient Tobacco Use Status: Never used Tobacco Second Hand Smoke Exposure: No Use of substances other than those prescribed or required for medical reasons: No Have you been hit, kicked, punched, or otherwise hurt by someone within the past year? If so, by whom?: No Are you DNR?: No Advance Directives: No Advance Directives Information Provided: Yes (brochure mailed) Advance Directives on File: No Recently lost weight without trying: No Eating poorly because of decreased appetite: No Nutrition Risks: No Nutritional Risk Poor oral hygiene: No Meds Allergies Allergy/AdvReac Type Severity Reaction Status Date / Time Kgisykr-OAD-GyV Reductase Allergy Intermediate MUSCLE Verified 09/14/22 13:51 Inhibitor WEAKNESS [UJRTLRI-SAM-IQE REDUCTASE INHIBITOR] morphine Allergy Rash Verified 09/14/22 13:51 alirocumab AdvReac Severe Cough Verified 09/14/22 13:51 [From Praluent Pen] Active Medications: Current Medications Povidone Iodine (Povidone Iodine 5 % Ophth Soln 30 Ml Bottle) 1 appl EYE-BOTH PREOP PRN PRN Reason: Pre-Op Surgical Implant Prophy Tetracaine HCl (Tetracaine Hcl/Pf 0.5% Oph Veronica 4 Ml Drops) 1 drop EYE-BOTH PREOP ONE Stop: 12/04/22 11:03 Home Medications Medication Instructions Recorded Confirmed Last Taken Type aspirin 81 mg tablet,delayed 81 mg PO DAILY 11/24/20 11/28/22 12/04/22 History release allopurinol 300 mg tablet 300 mg PO DAILY 01/24/21 11/28/22 Unknown History metoprolol succinate 50 mg 50 mg PO DAILY 07/27/21 11/28/22 Unknown History tablet,extended release 24 hr lorazepam 0.5 mg tablet 0.5 mg PO BEDTIME PRN Sleep 07/05/22 11/28/22 Unknown History omeprazole 20 mg capsule,delayed 20 mg PO DAILY 07/05/22 11/28/22 Unknown History release amlodipine 2.5 mg tablet 2.5 mg PO DAILY 09/14/22 11/28/22 Unknown History Exam Exam Date and Time: December 04, 2022 110 Height,Weight and Vital Signs: Height 6 ft 1 in Weight 113.398 kg Vital Signs Temp Pulse Resp BP Pulse Ox O2 Del Method 12/04/22 11:04 97.1 F 61 18 160/96 H 98 Room Air Airway Mallampati Class: III TM Dist: >3cm Neck ROM: Full Loose/Missing/Broken Teeth: No (Denies broken, loose, missing teeth) Heart: RRR Lungs: CTAB Assessment and Plan Assessment Anesthesia Assessment: Anesthesia Plan Discussed and Chart Reviewed Final Anesthetic Review Family History of Problems with Anesthesia: No History of Problems with Anesthesia: No NPO: Yes ASA Class: III Final Preanesthetic Review: No Changes in Pt Med Stat, Meds/Allgs Chart Reviewed, Consent Obtained/Reviewed and Anes Risks/Benef Reviewed Patient Risk: Intermediate Procedure Risk: Low Assessment/Block/Sedation in SS: Assess/Block/Sedation-SS Anesthetic Plan Anesthetic Plan: MAC: Disposition: Standard PACU
[2022-12-04 11:04] VITALS: BP 160/96; PULSE 61; RESP 18; TEMP 36.2; O2SAT 98; BMI 33.0
[2022-12-04 11:25] VITALS: BP 144/79; PULSE 61; RESP 18; TEMP 36.2; O2SAT 98
[2022-12-04] MEDS: Lactated Ringers 500 ML 50 ML IV (11:31)
[2022-12-04] MEDS: Tetracaine HCl/PF 0.5% Oph Sol 4 ML DROPS 1 DROP EYE-BOTH (11:36)
--- NOTE | 2022-12-04 12:02 | HO.PNOPHT ---
Ophthalmology Procedure Procedure Date of Service: 12/04/22 Ophthalmology Viscoelastic: Not Applicable Ophthalmology Lenses: Not Applicable Procedure Notes: PREOPERATIVE DIAGNOSIS: Decreased visual field secondary to dermatochalasia POSTOPERATIVE DIAGNOSIS: Same PROCEDURE: Bilateral Blepharoplasty, upper eyelids SURGEON: Wilfredo Petit M.D. ANESTHESIA: Local with sedation ESTIMATED BLOOD LOSS: None COMPLICATIONS: None After obtaining informed consent, the patient was brought to the operating room and placed in supine position. After adequate sedation per Anesthesia, the eyes were prepped and draped in the usual sterile fashion. Attention was directed to the right eye where a double pinch test was completed to assure excess tissue was not removed from the upper lid. The margin was marked at the proposed incision sites. The left eye was done in a similar fashion. 2% Lidocaine with epinephrine was then instilled subcutaneously along the margin of the pre-marked skin incisions. #15 scalpel blade was then utilized to create the incisions. Using a combination of sharp and blunt dissection with Faith scissors, the epidermis was removed. Hemostasis was achieved with cautery. 6-0 plain suture was then utilized to close the incision site. Attention was directed to the left upper lid where subcutaneous 2% with Epinephrine Lidocaine was instilled along the pre-marked areas. A #15 scalpel blade was then utilized to create the incisions followed by sharp and blunt dissection with Fiath scissors to remove the overlying epidermis. Hemostasis was achieved with cautery, followed by closure with 6-0 plain suture. The patient tolerated the procedure well. The patient will be followed up in the a.m. Topical antibiotic ointment was instilled over the incision sites and ice as tolerated for 48 hours.
[2022-12-04 13:15] VITALS: BP 145/76; PULSE 60; RESP 20; TEMP 36.2; O2SAT 98
[2022-12-04 13:30] VITALS: BP 147/74; PULSE 53; RESP 20; O2SAT 96
[2022-12-04 13:44] VITALS: BP 150/78; PULSE 60; RESP 20; TEMP 36.2; O2SAT 98
== END 2022-12-04 14:07 | disposition home or self-care (01) ==
PROVIDERS: PCP Internal Medicine; Visit Provider Ophthalmology
PROC: (CPT 15823; principal; 2022-12-04 11:40)
DX: H02.831 Dermatochalasis of right upper eyelid (principal); H02.834 Dermatochalasis of left upper eyelid; I10 Essential (primary) hypertension; R91.1 Solitary pulmonary nodule; Z79.82 Long term (current) use of aspirin; Z79.01 Long term (current) use of anticoagulants; Z79.899 Other long term (current) drug therapy; Z88.8 Allergy status to other drugs, medicaments and biological substances
CPT/HCPCS: 15823; J2250; J3010

== ENCOUNTER 2022-12-11 10:09 | Outpatient (AMB) | payer MEDICARE, OTHER, SELFPAY ==
[2022-12-11 10:12] VITALS: BP 122/72; PULSE 65; BMI 34.0
--- NOTE | 2022-12-11 10:12 | MHC.OFFVIS ---
Intake Vital Signs 12/11/22 10:12 Height 6 ft 1 in Weight 257 lb 7.999 oz BMI 34.0 BP 122/72 Blood Pressure Location Lt brachial Position Sitting Pulse 65 Pulse Source Pulse Oximeter Intake Visit Reasons: 3 month follow up Intake Note: 3 month follow up. Master Motorcycle Technician Required: No Accompanied by: Self / Same As Patient Allergies Qycaxiw-FPT-ViF Reductase Inhibitor [FEUTZXB-WKO-VSQ REDUCTASE INHIBITOR] Allergy (Intermediate, Verified 12/11/22 10:14) MUSCLE WEAKNESS morphine Allergy (Verified 12/11/22 10:14) Rash alirocumab [From Praluent Pen] Adverse Reaction (Severe, Verified 12/11/22 10:14) Cough Medication List - Last Reconciled 12/11/22 by Forrest Ya MD allopurinol 300 mg PO DAILY aspirin 81 mg PO DAILY evolocumab (Repatha SureClick) 140 mg subcut Q2W metoprolol succinate ER 50 mg PO DAILY valsartan 160 mg PO DAILY HPI HPI Comments History of Present Illness Details Pleasant 67-year-old gentleman presenting for follow-up. He underwent right knee replacement recently. Post surgery he had shortness of breath and fatigue. Was also getting some dizziness. He had LAD PCI and was on aspirin and Plavix. His Plavix was stopped by the orthopedic service and was started on Eliquis instead. He said he had weakness in the right leg along with significant bruising. He had a prolonged recovery time and had significant shortness of breath when he started exercising. With activity and exercise his shortness of breath has improved but he continues to get shortness of breath and is concerned about that. He also had some hematuria when he was taking apixaban. He is currently off of it and is back on aspirin Plavix. Due to recent surgery and shortness of breath he underwent CT chest rule out pulmonary embolism which was negative. His denying any chest discomfort. 12/11/22: He returns for follow-up. He has been doing well. He has been diagnosed with kidney stones and underwent lithotripsy and since then his abdominal pain has resolved completely in. Blood pressure control is good. Denying any chest discomfort. Currently taking aspirin only now. He has stop Plavix and has completed a year of dual antiplatelet therapy. [facility] Medical History Arthritis Cough Fusion of lumbosacral spine GERD (gastroesophageal reflux disease) Gout Hoarseness HTN (hypertension) Hyperlipemia Kidney stone Myocardial infarct On beta johan at home Pulmonary nodule Tubular adenoma Surgical History (Updated 12/11/22 @ 10:15 by KALEB Mckeon) H/O colonoscopy H/O lithotripsy H/O spinal fusion History of cardiac cath History of esophagogastroduodenoscopy (EGD) History of eyelid surgery History of mandibular surgery History of total left knee replacement History of total right knee replacement (TKR) Hx of cystoscopy Hx of left cataract extraction Family History Mother Colon cancer Father Alzheimer's dementia S/P triple vessel bypass Social History Are you a primary day care director to a significant other at home: No Do you presently have visiting nurse or other home services: No Alcohol intake: never Patient Tobacco Use Status: Never used Tobacco Second Hand Smoke Exposure: No Review of Systems Const Denies weakness ENT Denies dizziness Card Denies chest pain, Denies chest pain with activity, Denies syncope, Denies rapid heart rate, Denies pedal edema, Denies edema, Denies leg edema, Denies lightheadedness, Denies palpitations, Denies dyspnea, Denies dyspnea on exertion and Denies orthopnea Resp Denies cough, Denies dyspnea and Denies dyspnea on exertion GI Denies hematochezia and Denies change in stool character Musc Denies abnormal gait, Denies muscle cramps, Denies muscle weakness, Denies numbness, Denies radiating pain into limb and Denies tingling Neuro Denies abnormal gait, Denies dizziness, Denies syncope, Denies numbness, Denies tingling and Denies weakness Endo Denies palpitations Physical Exam Vital Signs: Last Vital Signs Pulse 65 12/11/22 10:12 BP 122/72 12/11/22 10:12 BMI result Body Mass Index 34.0 GENERAL APPEARANCE: in no acute distress, pleasant. NECK: no carotid bruit, no jugular venous distention. SKIN: no suspicious lesions, warm and dry. HEART: no murmurs, regular rate and rhythm. LUNGS: clear to auscultation bilaterally. ABDOMEN: soft, nontender. EXTREMITIES: no edema. PERIPHERAL PULSES: equal. NEUROLOGIC: No gross deficits, AAO X 3 Assessment & Plan Assessment & Plan (1) Essential hypertension: Comment: Blood pressure control is good. Code(s): I10 - Essential (primary) hypertension (2) Dyspnea on exertion: Code(s): R06.00 - Dyspnea, unspecified (3) S/P coronary angioplasty: Code(s): Z98.61 - Coronary angioplasty status Plan Pleasant 67-year-old gentleman presenting for follow-up. He is feeling great on follow-up. Taking medications regularly. Blood pressure control is good. Abdominal pain has resolved of very got lithotripsy and treatment for renal calculi. No bleeding concerns at this point. He will take aspirin long-term for coronary disease. He is on Repatha for hyperlipidemia and statin intolerance. Follow-up 6 months. Thank you for allowing me to participate in the care of your patient. Please feel free to contact me if you have any questions. Coding Level of Care Code Est Pt Level 4 (26749) Diagnoses Essential hypertension I10 Dyspnea on exertion R06.00 S/P coronary angioplasty Z98.61
== END 2022-12-11 10:37 | disposition home or self-care (01) ==
PROVIDERS: PCP Internal Medicine; Referring Provider Internal Medicine; Visit Provider Internal Medicine Cardiovascular Disease
DX: I10 Essential (primary) hypertension (principal); R06.00 Dyspnea, unspecified; Z98.61 Coronary angioplasty status
CPT/HCPCS: 99214

== ENCOUNTER → 2022-12-11 10:09 | Outpatient (BNVA) | payer MEDICARE, OTHER, SELFPAY | PROVIDERS: PCP Internal Medicine; Referring Provider Internal Medicine; Visit Provider Internal Medicine Cardiovascular Disease | DX: I10 Essential (primary) hypertension (principal); R06.02 Shortness of breath; R53.83 Other fatigue; R42 Dizziness and giddiness; Z98.61 Coronary angioplasty status; Z98.890 Other specified postprocedural states; Z79.82 Long term (current) use of aspirin; Z79.01 Long term (current) use of anticoagulants | CPT/HCPCS: 99212 ==

== ENCOUNTER 2023-04-25 11:09 | Outpatient (AMB) | payer MEDICARE, OTHER, SELFPAY ==
--- NOTE | 2023-04-25 11:14 | A.OFFVIS_ITS ---
Intake Vital Signs 04/25/23 11:15 Height 6 ft 1 in Weight 256 lb 2.834 oz BMI 33.8 BP 120/60 Blood Pressure Location Lt brachial Position Sitting Pulse 86 Pulse Source Pulse Oximeter Intake Visit Reasons: 4 mth fu Intake Note: 4 mnth f/up pt its feeling fine. 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: No Accompanied by: Self / Same As Patient Allergies Cehyjom-LIO-ReF Reductase Inhibitor [LTRXCQY-AVG-ROP REDUCTASE INHIBITOR] Allergy (Intermediate, Verified 12/11/22 10:14) MUSCLE WEAKNESS morphine Allergy (Verified 12/11/22 10:14) Rash alirocumab [From Praluent Pen] Adverse Reaction (Severe, Verified 12/11/22 10:14) Cough Medication List - Last Reconciled 04/25/23 by Forrest Ya MD allopurinol 300 mg PO DAILY aspirin 81 mg PO DAILY metoprolol succinate ER 50 mg PO DAILY valsartan 160 mg PO DAILY HPI HPI Comments History of Present Illness Details Pleasant 68-year-old gentleman presenting for follow-up. He underwent right knee replacement recently. Post surgery he had shortness of breath and fatigue. Was also getting some dizziness. He had LAD PCI and was on aspirin and Plavix. His Plavix was stopped by the orthopedic service and was started on Eliquis instead. He said he had weakness in the right leg along with significant bruising. He had a prolonged recovery time and had significant shortness of breath when he started exercising. With activity and exercise his shortness of breath has improved but he continues to get shortness of breath and is concerned about that. He also had some hematuria when he was taking apixaban. He is currently off of it and is back on aspirin Plavix. Due to recent surgery and shortness of breath he underwent CT chest rule out pulmonary embolism which was negative. His denying any chest discomfort. 12/11/22: He returns for follow-up. He has been doing well. He has been diagnosed with kidney stones and underwent lithotripsy and since then his abdominal pain has resolved completely in. Blood pressure control is good. Denying any chest discomfort. Currently taking aspirin only now. He has stop Plavix and has completed a year of dual antiplatelet therapy. 04/25/2023: He returns for follow-up. Renato owens has started using Repatha. He said while he was using Repatha you would have significant cramping in his hands specially when he is working with his hands in his garage. He said he stopped using the Repatha and the cramps improved. As an experiment he took Repatha again the same night he had significant cramping and stiffness in his hands. Since then he has stop using Repatha and has been more than a month now that he has not used the drug. Otherwise clinically stable. No chest discomfort shortness of breath. Taking other medications regularly. He has multiple medication issues including cough and leg stiffness with Praluent. He could not tolerate any statins in the past. He also had side effects from ezetimibe. [facility] Medical History On beta johan at home Pulmonary nodule Hoarseness Cough Fusion of lumbosacral spine Tubular adenoma Gout Kidney stone Myocardial infarct Arthritis Hyperlipemia HTN (hypertension) GERD (gastroesophageal reflux disease) Surgical History History of eyelid surgery Hx of cystoscopy History of total right knee replacement (TKR) Hx of left cataract extraction History of cardiac cath History of mandibular surgery History of esophagogastroduodenoscopy (EGD) H/O lithotripsy H/O spinal fusion H/O colonoscopy History of total left knee replacement Family History Mother Colon cancer Father Alzheimer's dementia S/P triple vessel bypass Social History Are you a primary medicare sales executive to a significant other at home: No Do you presently have visiting nurse or other home services: No Alcohol intake: never Patient Tobacco Use Status: Never used Tobacco Second Hand Smoke Exposure: No Review of Systems Const Reports chills, Reports fatigue, Reports fever(s), Reports frequent falls, Reports weakness, Reports weight gain and Reports weight loss ENT Reports dizziness Card Reports chest pain, Reports leg edema, Reports lightheadedness, Reports palpitations, Reports dyspnea and Reports dyspnea on exertion Resp Reports cough, Reports dyspnea and Reports dyspnea on exertion GI Reports hematochezia Musc Reports abnormal gait, Reports muscle weakness, Reports numbness, Reports radiating pain into limb and Reports tingling Neuro Reports abnormal gait, Reports dizziness, Reports frequent falls, Reports numbness, Reports tingling and Reports weakness Endo Reports fatigue and Reports palpitations Physical Exam Vital Signs: Last Vital Signs Pulse 86 04/25/23 11:15 BP 120/60 04/25/23 11:15 BMI result Body Mass Index 33.8 GENERAL APPEARANCE: in no acute distress, pleasant. NECK: no carotid bruit, no jugular venous distention. SKIN: no suspicious lesions, warm and dry. HEART: no murmurs, regular rate and rhythm. LUNGS: clear to auscultation bilaterally. ABDOMEN: soft, nontender. EXTREMITIES: no edema. PERIPHERAL PULSES: equal. NEUROLOGIC: No gross deficits, AAO X 3 Assessment & Plan Assessment & Plan (1) Hyperlipidemia: Code(s): E78.5 - Hyperlipidemia, unspecified Qualifiers: Hyperlipidemia type: mixed hyperlipidemia Qualified Code(s): E78.2 - Mixed hyperlipidemia (2) Essential hypertension: Comment: Blood pressure control is good. Code(s): I10 - Essential (primary) hypertension (3) Stable angina: Code(s): I20.8 - Other forms of angina pectoris Plan Pleasant 68-year-old gentleman who is here for follow-up. He has history of hyperlipidemia with multiple medication intolerance is. We have tried statins in the past but he could not tolerated even at low doses few times a week. He has not tolerated Zetia. He did okay with Repatha for some time but now complained of significant cramping in his hands which is clearly linked with Repatha use. He had not tolerated Praluent in the past also due to leg stiffness and weakness. He has known coronary disease and previous PCI to LAD. He is taking baby aspirin, valsartan and metoprolol succinate. His blood pressure is well controlled. I have advised him to check up fasting lipid panel. Based on that will decide how to go forward. We may have to look into second-line agents to improve his lipid numbers. Thank you for allowing me to participate in the care of your patient. Please feel free to contact me if you have any questions. Orders: Orders Lipid Panel Today E78.2 - Mixed hyperlipidemia Coding Level of Care Code Est Pt Level 4 ([id number]) Diagnoses Mixed hyperlipidemia E78.2 Hyperlipidemia type: mixed hyperlipidemia Essential hypertension I10 Stable angina I20.8
[2023-04-25 11:15] VITALS: BP 120/60; PULSE 86; BMI 33.8
== END 2023-04-25 11:38 | disposition home or self-care (01) ==
PROVIDERS: PCP Internal Medicine; Visit Provider Internal Medicine Cardiovascular Disease
DX: E78.2 Mixed hyperlipidemia (principal); I10 Essential (primary) hypertension; I20.8 Other forms of angina pectoris
CPT/HCPCS: 99214

== ENCOUNTER → 2023-04-25 11:09 | Outpatient (BNVA) | payer MEDICARE, OTHER, SELFPAY | PROVIDERS: PCP Internal Medicine; Visit Provider Internal Medicine Cardiovascular Disease | DX: E78.2 Mixed hyperlipidemia (principal); I10 Essential (primary) hypertension; I20.89 Other forms of angina pectoris | CPT/HCPCS: 99212 ==

== ENCOUNTER 2023-04-26 08:31 | Outpatient (REF) | payer MEDICARE, OTHER, SELFPAY ==
[2023-04-26 09:57] LABS: Cholesterol 206 mg/dL (<200); HDL Cholesterol 33 mg/dL (>40); LDL Cholesterol Calculated 140 mg/dL (<100); Triglycerides 166 mg/dL (<150)
== END 2023-04-26 08:32 | disposition home or self-care (01) ==
LOC: HO.LAB 08:31
PROVIDERS: PCP Internal Medicine; Visit Provider Internal Medicine Cardiovascular Disease
DX: E78.2 Mixed hyperlipidemia (principal)
CPT/HCPCS: 36415; 80061

== ENCOUNTER 2023-08-27 09:40 | Outpatient (AMB) | payer MEDICARE, OTHER, SELFPAY ==
[2023-08-27 09:46] VITALS: BP 120/72; PULSE 58; BMI 33.5
--- NOTE | 2023-08-27 09:46 | A.OFFVIS_ITS ---
Vital Signs 08/27/23 09:46 Height 6 ft 1 in Weight 253 lb 15.56 oz BMI 33.5 BP 120/72 Blood Pressure Location Lt brachial Position Sitting Pulse 58 Intake Visit Reasons: f/up Intake Note: pt states that he is feeling great. Patient Services Specialist Required: No Accompanied by: Self / Same As Patient Allergies Bumtbqs-DBA-OhY Reductase Inhibitor [MYOZMBT-UDN-BOA REDUCTASE INHIBITOR] A llergy (Intermediate, Verified 12/11/22 10:14) MUSCLE WEAKNESS morphine Allergy (Verified 12/11/22 10:14) Rash alirocumab [From Praluent Pen] Adverse Reaction (Severe, Verified 12/11/22 10:14) Cough Medication List - Last Reconciled 08/27/23 by Forrest Ya MD allopurinol 300 mg PO DAILY aspirin 81 mg PO DAILY evolocumab (Repatha SureClick) 140 mg subcut Q2W metoprolol succinate ER 50 mg PO DAILY valsartan 160 mg PO DAILY HPI Comments Details: Pleasant 68-year-old gentleman presenting for follow-up. He underwent right knee replacement recently. Post surgery he had shortness of breath and fatigue. Was also getting some dizziness. He had LAD PCI and was on aspirin and Plavix. His Plavix was stopped by the orthopedic service and was started on Eliquis instead. He said he had weakness in the right leg along with significant bruising. He had a prolonged recovery time and had significant shortness of breath when he started exercising. With activity and exercise his shortness of breath has improved but he continues to get shortness of breath and is concerned about that. He also had some hematuria when he was taking apixaban. He is currently off of it and is back on aspirin Plavix. Due to recent surgery and shortness of breath he underwent CT chest rule out pulmonary embolism which was negative. His denying any chest discomfort. 12/11/22: He returns for follow-up. He has been doing well. He has been diagnosed with kidney stones and underwent lithotripsy and since then his abdominal pain has resolved completely in. Blood pressure control is good. Denying any chest discomfort. Currently taking aspirin only now. He has stop Plavix and has completed a year of dual antiplatelet therapy. 04/25/2023: He returns for follow-up. He has started using Repatha. He said while he was using Repatha you would have significant cramping in his hands specially when he is working with his hands in his garage. He said he stopped using the Repatha and the cramps improved. As an experiment he took Repatha again the same night he had significant cramping and stiffness in his hands. Since then he has stop using Repatha and has been more than a month now that he has not used the drug. Otherwise clinically stable. No chest discomfort shortness of breath. Taking other medications regularly. He has multiple medication issues including cough and leg stiffness with Praluent. He could not tolerate any statins in the past. He also had side effects from ezetimibe. 08/27/23: He is here for f/u. He has been doing well. No CP or SOB. He has restarted taking Repatha and has been tolerating it well. [facility] Medical History On beta johan at home Pulmonary nodule Hoarseness Cough Fusion of lumbosacral spine Tubular adenoma Gout Kidney stone Myocardial infarct Arthritis Hyperlipemia HTN (hypertension) GERD (gastroesophageal reflux disease) Surgical History History of eyelid surgery Hx of cystoscopy History of total right knee replacement (TKR) Hx of left cataract extraction History of cardiac cath History of mandibular surgery History of esophagogastroduodenoscopy (EGD) H/O lithotripsy H/O spinal fusion H/O colonoscopy History of total left knee replacement Family History Mother Colon cancer Father Alzheimer's dementia S/P triple vessel bypass Social History Are you a primary care analyst to a significant other at home: No Do you presently have visiting nurse or other home services: No Alcohol intake: never Patient Tobacco Use Status: Never used Tobacco Second Hand Smoke Exposure: No Review of Systems Const Denies chills, Denies fatigue, Denies fever(s), Denies frequent falls, Denies weakness, Denies weight gain and Denies weight loss ENT Denies dizziness Card Denies chest pain, Denies leg edema, Denies lightheadedness, Denies palpitations, Denies dyspnea and Denies dyspnea on exertion Resp Denies cough, Denies dyspnea and Denies dyspnea on exertion GI Denies hematochezia Musc Denies abnormal gait, Denies muscle weakness, Denies numbness, Denies radiating pain into limb and Denies tingling Neuro Denies abnormal gait, Denies dizziness, Denies frequent falls, Denies numbness, Denies tingling and Denies weakness Endo Denies fatigue and Denies palpitations Physical Exam Vital Signs: Last Vital Signs Pulse 58 08/27/23 09:46 BP 120/72 08/27/23 09:46 BMI result Body Mass Index 33.5 GENERAL APPEARANCE: in no acute distress, pleasant. NECK: no carotid bruit, no jugular venous distention. SKIN: no suspicious lesions, warm and dry. HEART: no murmurs, regular rate and rhythm. LUNGS: clear to auscultation bilaterally. ABDOMEN: soft, nontender. EXTREMITIES: no edema. PERIPHERAL PULSES: equal. NEUROLOGIC: No gross deficits, AAO X 3 Office Procedures EKG Details: Sinus bradycardia 58 beats per minute, normal axis, normal EKG, QTC 86 milliseconds. [id number], Complete Assessment & Plan Assessment & Plan (1) Hyperlipidemia: Code(s): E78.5 - Hyperlipidemia, unspecified Category: Medical Qualifiers: Hyperlipidemia type: mixed hyperlipidemia Qualified Code(s): E78.2 - Mixed hyperlipidemia (2) Essential hypertension: Comment: Blood pressure control is good. Code(s): I10 - Essential (primary) hypertension Category: Medical (3) Stable angina: Code(s): I20.8 - Other forms of angina pectoris Category: Medical Plan Pleasant 68-year-old gentleman who is here for follow-up. He has history of hyperlipidemia with multiple medication intolerance is. We have tried statins in the past but he could not tolerated even at low doses few times a week. He has not tolerated Zetia. He did okay with Repatha for some time but now complained of significant cramping in his hands which is clearly linked with Repatha use. He had not tolerated Praluent in the past also due to leg stiffness and weakness. He has known coronary disease and previous PCI to LAD. He is taking baby aspirin, valsartan and metoprolol succinate. His blood pressure is well controlled. We tried changing him to Bempedoic acid but the patient did not like the side effect profile and decided to restart taking the Repatha. He is taking it at this stage and is tolerating it well. We referred him to lipidology clinic in [place] and he has an appointment in September. I think it would be worth discussing with a lipid specialist in case he can not tolerate Repatha again as we will need some alternative medication given his known coronary disease. Thank you for allowing me to participate in the care of your patient. Please feel free to contact me if you have any questions. Coding Level of Care Code Est Pt Level 4 (68407) Diagnoses Mixed hyperlipidemia E78.2 Hyperlipidemia type: mixed hyperlipidemia Essential hypertension I10 Stable angina I20.8 CPT Codes EKG - CPT: 97811-[id number], Complete ([id number])
== END 2023-08-27 10:12 | disposition home or self-care (01) ==
PROVIDERS: PCP Internal Medicine; Visit Provider Internal Medicine Cardiovascular Disease
DX: E78.2 Mixed hyperlipidemia (principal); I10 Essential (primary) hypertension; I20.89 Other forms of angina pectoris
CPT/HCPCS: 93010; 99214

== ENCOUNTER → 2023-08-27 09:40 | Outpatient (BNVA) | payer MEDICARE, OTHER, SELFPAY | PROVIDERS: PCP Internal Medicine; Visit Provider Internal Medicine Cardiovascular Disease | DX: E78.2 Mixed hyperlipidemia (principal); I10 Essential (primary) hypertension; I20.89 Other forms of angina pectoris; Z79.82 Long term (current) use of aspirin; Z79.899 Other long term (current) drug therapy | CPT/HCPCS: 93005; 99212 ==

== ENCOUNTER 2023-11-05 09:00 | Outpatient (RCR) | payer MEDICARE, OTHER, SELFPAY ==
--- NOTE | 2023-10-29 07:54 | MHC.PT.EP ---
[facility] [place] Office [place] Office [place] Office [address] [phone] F: [phone] F: [phone] F: [phone] F: [phone] Physical Therapy Plan of Care Date of Evaluation: 10/17/23 Date of Surgery: Diagnosis: Achilles tendonitis of R lower extremity. Assessment: Pt is a 68 y/o male referred to PT for eval and treat of Achilles tendonitis of R lower extremity who reports R heel pain about 4 months ago; he went to [facility] and XR found heel spur then went to podiatry and was prescribed prednisone which improved his AT pain; currently he does report difficulty with his R leg stating compensating likely lead to his tendonitis noting increased posterior leg tightness, knee pain with full flexion, difficulty negotiating stairs, difficulty getting in and out of vehicle and his tractor and would like to work on prevention as well as improving the strength and function of his R leg. He demonstrates decreased R knee and ankle strength compared to L, compensated stair negotiation, decreased dynamic standing balance, increased R > L posterior LE chain tissue tension, decreased R ankle dorsiflexion ROM and painful end range R knee flexion. Pt is deemed an appropriate candidate to receive skilled PT services to address their physical impairments in order to improve their functional ability. Frequency and Duration: The patient will be seen 2 x / wk x 4 wks. Short Term Goals: Initiate home program. 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 Pt will ascend and descend 1 fl of stairs w/o compensation. Pt will be able to tolerate walking 1 mile w/o difficulty. Pt will be able to stand for 1 hour w/o difficulty. Treatment Plan: Modalities to reduce pain, spasms and effusion. Manual therapy to restore motion and function. Therapeutic exercise to improve strength and flexibility. Neuromuscular re-education for posture and balance. Therapeutic activities to return to functional activities of daily living. Electronically signed by: Solo Booker PT. Please sign and return to therapist. Thank you for your referral.
== END 2023-11-05 17:16 | disposition home or self-care (01) ==
LOC: HO.PT 09:00
PROVIDERS: PCP Internal Medicine; Visit Provider Podiatrist
DX: M76.61 Achilles tendinitis, right leg (principal)
CPT/HCPCS: 97110; 97112; 97140; 97161

== ENCOUNTER 2024-01-23 09:13 | Outpatient (AMB) | payer MEDICARE, OTHER, SELFPAY ==
--- NOTE | 2024-01-23 09:14 | A.OFFVIS_ITS ---
Vital Signs 01/23/24 09:16 Height 6 ft 1 in Weight 254 lb BMI 33.5 Intake Visit Reasons: external hemorrhoid, thrombosed Intake Note: This patient presents for external hemorrhoid, thrombosed. Pt c/o; reports no rectal bleeding, reports no constipation, reports discomfort. Summons Server Required: No Accompanied by: Self / Same As Patient Allergies Juoymew-IUS-EcS Reductase Inhibitor [DANVYEO-PCX-ARX REDUCTASE INHIBITOR] Allergy (Intermediate, Verified 01/23/24 09:28) MUSCLE WEAKNESS morphine Allergy (Verified 01/23/24 09:28) Rash alirocumab [From Praluent Pen] Adverse Reaction (Severe, Verified 01/23/24 09:28) Cough Medication List - Last Reconciled 01/23/24 by Tano Crain MD allopurinol 300 mg PO DAILY aspirin 81 mg PO DAILY evolocumab (Repatha SureClick) 140 mg subcut Q2W metoprolol succinate ER 50 mg PO DAILY semaglutide (weight loss) (Wegovy) mg subcut valsartan 160 mg PO DAILY HPI HPI external hemorrhoid, thrombosed: Details: 68-year-old male referred for hemorrhoid pain. He says that he knows he has had some external hemorrhoids for a long while now although this has never bothered him. He says that about 2 weeks ago, he noted this to be much bigger, hard and with significant pain and tenderness. He would see occasional small amounts of blood on wiping. He went to see his primary care physician at that time as he could not sit comfortably. He was referred to me. He says that the swelling and pain have improved significantly. He feels much better now and he says he is able to sit down. He denies chronic constipation. [facility] Medical History (Updated 01/23/24 @ 09:44 by Tano Crain MD) Thrombosed external hemorrhoid On beta johan at home Pulmonary nodule Hoarseness Cough Fusion of lumbosacral spine Tubular adenoma Gout Kidney stone Myocardial infarct Arthritis Hyperlipemia HTN (hypertension) GERD (gastroesophageal reflux disease) Surgical History History of eyelid surgery Hx of cystoscopy History of total right knee replacement (TKR) Hx of left cataract extraction History of cardiac cath History of mandibular surgery History of esophagogastroduodenoscopy (EGD) H/O lithotripsy H/O spinal fusion H/O colonoscopy History of total left knee replacement Family History Mother Colon cancer Father Alzheimer's dementia S/P triple vessel bypass Social History Are you a primary pharmacist critical care to a significant other at home: No Do you presently have visiting nurse or other home services: No Alcohol intake: never Patient Tobacco Use Status: Never used Tobacco Second Hand Smoke Exposure: No Review of Systems Const Denies chills and Denies fever(s) Card Denies chest pain, Denies dyspnea and Denies dyspnea on exertion Resp Denies cough, Denies dyspnea and Denies dyspnea on exertion GI Denies hematochezia and Denies change in bowel habits Denies hematuria and Denies difficulty urinating Musc Denies back pain and Denies limited range of motion Neuro Denies focal weakness and Denies convulsions Psych Denies depression and Denies mood swings Physical Exam Vital Signs: BMI result Body Mass Index 33.5 Const General: comfortable and no acute distress Orientation/consciousness: patient oriented x3 Neck Neck: Yes no lymphadenopathy Resp Auscultation: clear to auscultation bilaterally Cardio Rhythm: regular rhythm GI Other: Rectal exam shows a moderate size external hemorrhoid on the right side that appears to have some pain thrombosis but now nontender Palpation (GI): Soft to palpation, nontender and no guarding Neuro General: patient oriented x3 Office Procedures Anoscopy He was in estrada-knife position. The anoscope was gently inserted. A full examination of the anal canal was done. Had small internal hemorrhoids. There was no fissure or ulceration there was no induration. There was no pain or tenderness. No bleeding. There were no lesions [id number] Assessment & Plan Assessment & Plan (1) Thrombosed external hemorrhoid: Code(s): K64.5 - Perianal venous thrombosis Category: Medical Plan: It appears that he has this thrombosed external hemorrhoid on the right side. This has improved significantly from 2 weeks ago. Currently denies any pain or tenderness. I told him that if he has severe symptoms down the line, he can come back to the office to be re-evaluated. He understands the option of hemorrhoidectomy for severe symptoms with this hemorrhoids. Coding Level of Care Code Est Pt Level 3 (28596) Diagnoses Thrombosed external hemorrhoid K64.5 CPT Codes Details - CPT: 31718-[id number] ([id number])
[2024-01-23 09:16] VITALS: BMI 33.5
== END 2024-01-23 09:47 | disposition home or self-care (01) ==
PROVIDERS: PCP Internal Medicine; Visit Provider Surgery
DX: K64.5 Perianal venous thrombosis (principal)
CPT/HCPCS: 46600; 99213

== ENCOUNTER → 2024-01-23 09:13 | Outpatient (BNVA) | payer MEDICARE, OTHER, SELFPAY | PROVIDERS: PCP Internal Medicine; Visit Provider Surgery | DX: K64.5 Perianal venous thrombosis (principal) | CPT/HCPCS: 46600; 99212 ==

== ENCOUNTER 2024-03-03 07:13 | Outpatient (REF) | payer MEDICARE, OTHER, SELFPAY ==
[2024-03-03 08:52] LABS: Cholesterol 93 mg/dL (<200); HDL Cholesterol 27 mg/dL (>40); LDL Cholesterol Calculated 36 mg/dL (<100); Triglycerides 154 mg/dL (<150)
== END 2024-03-03 07:14 | disposition home or self-care (01) ==
LOC: HO.LAB 07:13
PROVIDERS: PCP Internal Medicine; Visit Provider Internal Medicine Cardiovascular Disease
DX: E78.2 Mixed hyperlipidemia (principal)
CPT/HCPCS: 36415; 80061

== ENCOUNTER 2024-03-05 15:17 | Outpatient (AMB) | payer MEDICARE, OTHER, SELFPAY ==
[2024-03-05 15:36] VITALS: BP 136/70; PULSE 69; BMI 32.1
--- NOTE | 2024-03-05 15:36 | MHC.OFFVIS ---
Vital Signs 03/05/24 15:36 Height 6 ft 1 in Weight 243 lb 6.245 oz BMI 32.1 BP 136/70 Blood Pressure Location Lt brachial Position Sitting Pulse 69 Intake Visit Reasons: 6 mth f/up r/s 02/24 Intake Note: Pt feels good. 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 Accompanied by: self Allergies Eirfdor-JVW-ErT Reductase Inhibitor [KDACKFV-VSD-IXE REDUCTASE INHIBITOR] Allergy (Intermediate, Verified 01/23/24 09:28) MUSCLE WEAKNESS morphine Allergy (Verified 01/23/24 09:28) Rash alirocumab [From Praluent Pen] Adverse Reaction (Severe, Verified 01/23/24 09:28) Cough Medication List - Last Reconciled 03/05/24 by Forrest Ya MD allopurinol 300 mg PO DAILY aspirin 81 mg PO DAILY evolocumab (Repatha SureClick) 140 mg subcut Q2W metoprolol succinate ER 50 mg PO DAILY semaglutide (weight loss) (Wegovy) mg subcut valsartan 160 mg PO DAILY HPI Comments Details: Pleasant 69-year-old gentleman presenting for follow-up. He underwent right knee replacement recently. Post surgery he had shortness of breath and fatigue. Was also getting some dizziness. He had LAD PCI and was on aspirin and Plavix. His Plavix was stopped by the orthopedic service and was started on Eliquis instead. He said he had weakness in the right leg along with significant bruising. He had a prolonged recovery time and had significant shortness of breath when he started exercising. With activity and exercise his shortness of breath has improved but he continues to get shortness of breath and is concerned about that. He also had some hematuria when he was taking apixaban. He is currently off of it and is back on aspirin Plavix. Due to recent surgery and shortness of breath he underwent CT chest rule out pulmonary embolism which was negative. His denying any chest discomfort. 12/11/22: He returns for follow-up. He has been doing well. He has been diagnosed with kidney stones and underwent lithotripsy and since then his abdominal pain has resolved completely in. Blood pressure control is good. Denying any chest discomfort. Currently taking aspirin only now. He has stop Plavix and has completed a year of dual antiplatelet therapy. 04/25/2023: He returns for follow-up. He has started using Repatha. He said while he was using Repatha you would have significant cramping in his hands specially when he is working with his hands in his garage. He said he stopped using the Repatha and the cramps improved. As an experiment he took Repatha again the same night he had significant cramping and stiffness in his hands. Since then he has stop using Repatha and has been more than a month now that he has not used the drug. Otherwise clinically stable. No chest discomfort shortness of breath. Taking other medications regularly. He has multiple medication issues including cough and leg stiffness with Praluent. He could not tolerate any statins in the past. He also had side effects from ezetimibe. 08/27/23: He is here for f/u. He has been doing well. No CP or SOB. He has restarted taking Repatha and has been tolerating it well. 03/05/2024: He is here for follow-up. He is on Wegovy for weight loss and has lost some weight. He is saying he is feeling great. He is using Repatha at this stage and his LDL is 36. Clinically stable and has no complaints. [facility] Medical History (Updated 01/23/24 @ 09:44 by Tano Crain MD) Thrombosed external hemorrhoid On beta johan at home Pulmonary nodule Hoarseness Cough Fusion of lumbosacral spine Tubular adenoma Gout Kidney stone Myocardial infarct Arthritis Hyperlipemia HTN (hypertension) GERD (gastroesophageal reflux disease) Surgical History History of eyelid surgery Hx of cystoscopy History of total right knee replacement (TKR) Hx of left cataract extraction History of cardiac cath History of mandibular surgery History of esophagogastroduodenoscopy (EGD) H/O lithotripsy H/O spinal fusion H/O colonoscopy History of total left knee replacement Family History Mother Colon cancer Father Alzheimer's dementia S/P triple vessel bypass Social History Are you a primary foster care case manager to a significant other at home: No Do you presently have visiting nurse or other home services: No Alcohol intake: never Patient Tobacco Use Status: Never used Tobacco Second Hand Smoke Exposure: No Review of Systems Const Denies chills, Denies fatigue, Denies fever(s), Denies weight gain and Denies weight loss ENT Denies dizziness Card Denies chest pain, Denies leg edema, Denies lightheadedness, Denies palpitations, Denies dyspnea on exertion, Denies orthopnea and Denies other Resp Denies cough and Denies dyspnea on exertion GI Denies hematochezia and Denies change in stool character Musc Denies abnormal gait, Denies muscle weakness, Denies numbness, Denies radiating pain into limb and Denies tingling Neuro Denies abnormal gait, Denies dizziness, Denies numbness and Denies tingling Endo Denies fatigue and Denies palpitations Physical Exam Vital Signs: Last Vital Signs Pulse 69 03/05/24 15:36 BP 136/70 03/05/24 15:36 BMI result Body Mass Index 32.1 GENERAL APPEARANCE: in no acute distress, pleasant. NECK: no carotid bruit, no jugular venous distention. SKIN: no suspicious lesions, warm and dry. HEART: no murmurs, regular rate and rhythm. LUNGS: clear to auscultation bilaterally. ABDOMEN: soft, nontender. EXTREMITIES: no edema. PERIPHERAL PULSES: equal. NEUROLOGIC: No gross deficits, AAO X 3 Assessment & Plan Assessment & Plan (1) Stable angina: Code(s): I20.8 - Other forms of angina pectoris Category: Medical (2) Hyperlipidemia: Code(s): E78.5 - Hyperlipidemia, unspecified Category: Medical Qualifiers: Hyperlipidemia type: mixed hyperlipidemia Qualified Code(s): E78.2 - Mixed hyperlipidemia Plan Pleasant 69 year gentleman who is here for follow-up. He has known history of coronary artery disease with previous PCI. Clinically stable at this point. He is taking baby aspirin and metoprolol succinate 50 mg daily. Blood pressure is currently well controlled on metoprolol and valsartan. He is on Wegovy for weight loss. He has statin allergy and currently is on Repatha. His last LDL was 36. Clinically stable and doing well. He will see us back in 6 months. Thank you for allowing me to participate in the care of your patient. Please feel free to contact me if you have any questions. Coding Level of Care Code Est Pt Level 4 (27766) Diagnoses Stable angina I20.8 Mixed hyperlipidemia E78.2 Hyperlipidemia type: mixed hyperlipidemia
== END 2024-03-05 15:59 | disposition home or self-care (01) ==
LOC: HO.HCS 15:17
PROVIDERS: PCP Internal Medicine; Visit Provider Internal Medicine Cardiovascular Disease
DX: I20.89 Other forms of angina pectoris (principal); E78.2 Mixed hyperlipidemia
CPT/HCPCS: 99214

== ENCOUNTER → 2024-03-05 15:17 | Outpatient (BNVA) | payer MEDICARE, OTHER, SELFPAY | PROVIDERS: PCP Internal Medicine; Visit Provider Internal Medicine Cardiovascular Disease | DX: I20.89 Other forms of angina pectoris (principal); E78.2 Mixed hyperlipidemia; Z79.899 Other long term (current) drug therapy | CPT/HCPCS: 99212 ==

== ENCOUNTER 2024-10-24 06:36 | Outpatient (REF) | payer MEDICARE, OTHER, SELFPAY ==
--- OUTSIDE RECORDS SUMMARY | 2024-10-24 06:39 | XMS_ITS ---
Author Name [facility] Organization Unknown History of Medication Use Medication Directions Dispensed Refills Start Date End Date [facility] semaglutide-weight management 0.5 MG/0.5ML Solution Auto-injector Inject 0.5 mL under the skin every 7 days. 10/21/2024 active baclofen (LIORESAL) 10 MG tablet Take 1 tablet (10 mg total) by mouth 3 (three) times a day as needed for muscle spasms. 10/07/2024 active methylPREDNISolone (MEDROL DOSEPAK) 4 MG tablet follow package directions 10/07/2024 active Semaglutide-Weight Management (Wegovy) 1 MG/0.5ML Solution Auto-injector Inject 1 mg under the skin once a week. 07/15/2024 5 active betamethasone dipropionate (DIPROLENE) 0.05 % cream Apply 0.05 % topically. 07/09/2024 active predniSONE (DELTASONE) 10 MG tablet Take 1 tablet (10 mg total) by mouth. 07/09/2024 active colchicine (COLCRYS) 0.6 mg tablet Take 1 tablet (0.6 mg total) by mouth daily. 07/08/2024 active Semaglutide-Weight Management 1 MG/0.5ML Solution Auto-injector Inject 1 pen needle under the skin every 7 days. 05/22/2024 active Semaglutide-Weight Management (Wegovy) 0.5 MG/0.5ML Solution Auto-injector Inject 0.75 mg under the skin once a week. 05/20/2024 active Semaglutide-Weight Management (Wegovy) 0.25 MG/0.5ML Solution Auto-injector Inject 0.25 mg under the skin once a week. 02/22/2024 4 aborted Semaglutide-Weight Management (Wegovy) 0.25 MG/0.5ML Solution Auto-injector Inject 0.5 mg under the skin once a week. Inject 0.25mg under the skin weekly for 4 weeks then go up to 0.5mg weekly after that 02/05/2024 4 aborted Semaglutide-Weight Management (Wegovy) 0.25 MG/0.5ML Solution Auto-injector Inject 0.25mg under the skin weekly for 4 weeks then go up to 0.5mg weekly after that 10/15/2023 active Biotin 10 MG Cap Take 1 capsule by mouth daily. active Cholecalciferol (D2000 Ultra Strength) 2000 UNITS Cap capsule Take 1 capsule (2,000 Units total) by mouth daily. active Cyanocobalamin [address] 2,500 mcg under the tongue. active hydrocortisone 1 % cream Apply 1 Application topically. active ibuprofen (MOTRIN) 600 MG tablet Take 1 tablet (600 mg total) by mouth 4 times daily (every 6 hours) as needed for mild pain. active MAGNESIUM CITRATE PO Take 250 mg by mouth daily. active MILK THISTLE PO Take 375 mg by mouth. active valsartan (DIOVAN) 320 MG tablet Take 0.5 tablets (160 mg total) by mouth daily. 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 ProblemAct [facility] Chronic kidney disease, stag e 3a active 2021-09-23 ProblemAct [facility] Coronary artery disease involving [place] coronary artery of [place] heart without angina pectoris active 2023-10-15 ProblemAct [facility] T Encounters Encounter Type Encounter Reason Primary Diagnosis Location Date Ambulatory [facility] 10/07/2024 Ambulatory [facility] 10/07/2024 Ambulatory Other intervertebral disc degeneration, lumbar region with discogenic back pain and lower extremity pain Other intervertebral disc degeneration, lumbar region with discogenic back pain and lower extremity pain [facility] 10/07/2024 Ambulatory [facility] 09/24/2024 Ambulatory Atherosclerotic hear t disease of [place] coronary artery without angina pectoris Atherosclerotic heart disease of [place] coronary artery without angina pectoris [facility] 07/15/2024 Ambulatory Pure hypercholesterolemia, unspecified Pure hypercholesterolemia, unspecified [facility] 01/15/2024 Ambulatory Pure hypercholesterolemia, unspecified Pure hypercholesterolemia, unspecified [facility] 10/15/2023 Care Team Organization Name Specialty Phone Email Start Date End Da te [facility] 10/15/2023 [facility] 07/03/2023
[2024-10-24 07:43] LABS: Cholesterol 135 mg/dL (<200); HDL Cholesterol 36 mg/dL (>40); LDL Cholesterol Calculated 86 mg/dL (<100); Triglycerides 65 mg/dL (<150)
== END 2024-10-24 06:37 | disposition home or self-care (01) ==
LOC: HO.LAB 06:36
PROVIDERS: PCP Internal Medicine; Visit Provider Internal Medicine Cardiovascular Disease
DX: E78.2 Mixed hyperlipidemia (principal)
CPT/HCPCS: 36415; 80061

== ENCOUNTER 2024-10-29 10:33 | Outpatient (AMB) | payer MEDICARE, OTHER, SELFPAY ==
--- NOTE | 2024-10-29 10:50 | A.OFFVIS_ITS ---
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 He underwent right knee replacement recently. Post surgery he had shortness of breath and fatigue. Was also getting some dizziness. He had LAD PCI and was on aspirin and Plavix. His Plavix was stopped by the orthopedic service and was started on Eliquis instead. He said he had weakness in the right leg along with significant bruising. He had a prolonged recovery time and had significant shortness of breath when he started exercising. With activity and exercise his shortness of breath has improved but he continues to get shortness of breath and is concerned about that. He also had some hematuria when he was taking apixaban. He is currently off of it and is back on aspirin Plavix. Due to recent surgery and shortness of breath he underwent CT chest rule out pulmonary embolism which was negative. His denying any chest discomfort. 12/11/22: He returns for follow-up. He has been doing well. He has been diagnosed with kidney stones and underwent lithotripsy and since then his abdominal pain has resolved completely in. Blood pressure control is good. Denying any chest discomfort. Currently taking aspirin only now. He has stop Plavix and has completed a year of dual antiplatelet therapy. 04/25/2023: He returns for follow-up. He has started using Repatha. He said while he was using Repatha you would have significant cramping in his hands specially when he is working with his hands in his garage. He said he stopped using the Repatha and the cramps improved. As an experiment he took Repatha again the same night he had significant cramping and stiffness in his hands. Since then he has stop using Repatha and has been more than a month now that he has not used the drug. Otherwise clinically stable. No chest discomfort shortness of breath. Taking other medications regularly. He has multiple medication issues including cough and leg stiffness with Praluent. He could not tolerate any statins in the past. He also had side effects from ezetimibe. 08/27/23: He is here for f/u. He has been doing well. No CP or SOB. He has restarted taking Repatha and has been tolerating it well. 03/05/2024: He is here for follow-up. He is on Wegovy for weight loss and has lost some weight. He is saying he is feeling great. He is using Repatha at this stage and his LDL is 36. Clinically stable and has no complaints. 10/29/2024: He is here for follow-up. His recent LDL is 80. He apparently was started on Wegovy for weight loss and did lose some weight but started having a meal abdominal pain there was concern about pancreatitis. His workup did not show pancreatitis but while he was holding Wegovy he stopped using PCSK9 inhibitor also. He is saying he is back on both at this point. Doing weight loss he noticed his blood pressure to be lower and he stopped taking metoprolol and valsartan. He has been using valsartan as needed. [facility] Medical History Thrombosed external hemorrhoid On beta johan at home Pulmonary nodule Hoarseness Cough Fusion of lumbosacral spine Tubular adenoma Gout Kidney stone Myocardial infarct Arthritis Hyperlipemia HTN (hypertension) GERD (gastroesophageal reflux disease) Surgical History History of eyelid surgery Hx of cystoscopy History of total right knee replacement (TKR) Hx of left cataract extraction History of cardiac cath History of mandibular surgery History of esophagogastroduodenoscopy (EGD) H/O lithotripsy H/O spinal fusion H/O colonoscopy History of total left knee replacement Family History Mother Colon cancer Father Alzheimer's dementia S/P triple vessel bypass Social History Are you a primary after school caregiver to a significant other at home: No Do you presently have visiting nurse or other home services: No Alcohol intake: never Patient Tobacco Use Status: Never used Tobacco Second Hand Smoke Exposure: No Review of Systems Const Denies chills, Denies fatigue, Denies fever(s), Denies frequent falls, Denies weakness, Denies weight gain and Denies weight loss ENT Denies dizziness Card Denies chest pain, Denies leg edema, Denies lightheadedness, Denies palpitations, Denies dyspnea and Denies dyspnea on exertion Resp Denies cough, Denies dyspnea and Denies dyspnea on exertion GI Denies hematochezia Musc Denies abnormal gait, Denies muscle weakness, Denies numbness, Denies radiating pain into limb and Denies tingling Neuro Denies abnormal gait, Denies dizziness, Denies frequent falls, Denies numbness, Denies tingling and Denies weakness Endo Denies fatigue and Denies palpitations Physical Exam Vital Signs: Last Vital Signs Pulse 62 10/29/24 10:52 BP 142/80 H 10/29/24 10:52 BMI result Body Mass Index 29.5 GENERAL APPEARANCE: in no acute distress, pleasant. NECK: no carotid bruit, no jugular venous distention. SKIN: no suspicious lesions, warm and dry. HEART: no murmurs, regular rate and rhythm. LUNGS: clear to auscultation bilaterally. ABDOMEN: soft, nontender. EXTREMITIES: no edema. PERIPHERAL PULSES: equal. NEUROLOGIC: No gross deficits, AAO X 3 Office Procedures EKG Details: Sinus rhythm 62 beats per minute, normal ECG, QTC 403 millisecond [id number], Complete Assessment & Plan Assessment & Plan (1) Essential hypertension: Comment: Blood pressure control is good. Code(s): I10 - Essential (primary) hypertension Category: Medical (2) S/P coronary angioplasty: Code(s): Z98.61 - Coronary angioplasty status Category: Surgical Plan Pleasant 69 year gentleman with statin intolerance who is currently on Repatha. He missed his Repatha for approximately 1 month and his LDL is elevated. He is losing weight with Wegovy. He is saying his blood pressure was low and he was getting symptomatic so he stopped taking metoprolol and valsartan and has been using valsartan as needed. We discussed about starting 1 medication currently and we will start him on Toprol-XL. He will continue to hold valsartan and monitor his blood pressure. He will continue baby aspirin as before. Thank you for allowing me to participate in the care of your patient. Please feel free to contact me if you have any questions. Medications: New metoprolol succinate ER 50 mg PO DAILY 90 tabs 3RF Coding Level of Care Code Est Pt Level 4 (05691) Diagnoses Essential hypertension I10 S/P coronary angioplasty Z98.61 CPT Codes EKG - CPT: 89318-[id number], Complete ([id number])
[2024-10-29 10:52] VITALS: BP 142/80; PULSE 62; BMI 29.5
--- OUTSIDE RECORDS SUMMARY | 2024-10-29 11:13 | XMS_ITS ---
Author Name [facility] Organization Unknown History of Medication Use Medication Directions Dispensed Refills Start Date End Date [facility] semaglutide-weight management 0.5 MG/0.5ML Solution Auto-injector [...] up to 0.5mg weekly after that 10/15/2023 4 active Biotin 10 MG Cap Take 1 [...] (160 mg total) by mouth daily. active Allergies Allergen Reaction Severity Comment Documented Date Source Statu s CEFACLOR RASH/DERMATITIS 01/15/2024 [facility] acti ve CEFUROXIME RASH/DERMATITIS 01/15/2024 [facility] ac tive STATINS OTHER (SEE COMMENTS) Muscle aches and pain [facility]20[facility] active CEPHALEXIN RASH/DERMATITIS Diffuse rash 08/21/2022 [facility] active ALIROCUMAB OTHER (SEE COMMENTS) Muscle pain 07/05/2022 [facility] active MORPHINE RASH/DERMATITIS 05/25/2021 [facility] acti ve ALLOPURINOL GI INTOLERANCE/NAUSEA /VOMITING 01/28/2021 [facility] active TICAGRELOR SHORTNESS OF BREATH 01/28/2021 [facility] active OLMESARTAN OTHER (SEE COMMENTS) bp too low 10/23/2019 [facility] active FAMOTIDINE OTHER (SEE COMMENTS) Leg cramps 10/16/2019 [facility] active Problems Problem Status Onset Date Problem Type Date of Resoluti on Source Coronary artery disease involving tejon coronary artery of tejon heart without angina pectoris active 2023-10-15 [facility]Act [facility] Obesity (BMI 30.0-34.9) active 2023-10-15 ProblemAct [facility] Chronic kidney disease, stag e 3a active 2021-09-23 ProblemAct [facility] Pure hypercholesterolemia active 2023-10-15 ProblemAct [facility] Statin intolerance active 2023-10-15 ProblemAct [facility] 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 ProblemAct [facility] Encounters Encounter Type Encounter Reason Primary Diagnosis Location Date Ambulatory [facility] 10/07/2024 Ambulatory [facility] 10/07/2024 Ambulatory Other intervertebral disc degeneration, lumbar region with discogenic back pain and lower extremity pain Other intervertebral disc degeneration, lumbar region with discogenic back pain and lower extremity pain [facility] 10/07/2024 Ambulatory [facility] 09/24/2024 Ambulatory Atherosclerotic hear t disease of tejon coronary artery without angina pectoris Atherosclerotic heart disease of tejon coronary artery without angina pectoris [facility] 07/15/2024 Ambulatory Pure hypercholesterolemia, unspecified Pure hypercholesterolemia, unspecified [facility] 01/15/2024 Ambulatory Pure hypercholesterolemia, unspecified Pure hypercholesterolemia, unspecified [facility] 10/15/2023 Care Team Organization Name Specialty Phone Email Start Date End Da te [facility] 10/15/2023 [facility] 07/03/2023
--- OUTSIDE RECORDS SUMMARY | 2024-10-29 11:14 | XMS_ITS | Patient Health Record ---
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 Name Role Phone Casimiro Thompson MD Primary Care Provider Unavaila ble JohnPatsy hess Unavailable [phone] Black, Yarely Unavailable [phone] Allergies Allergen (clinical drug ingredient) Drug/Non Drug Allergy documented on EMR Reaction Allergy Type Onset Date Status cefaclor ceclor (uncoded) rash Allergy Act ashley Ceftin rash Drug Allergy Active Keflex rash Drug Allergy Active morphine Morphine rash Drug Allergy Active Substance with 0-nxkzbdi-3-methylgluta ryl-coenzyme A reductase inhibitor mechanism of action (substance) Statins Unknown Drug Allergy Active Reason For Referral No Information Medications Medication SIG (Take, Route, Frequency, Duration) Notes Start Date End Date Status amLODIPine Besylate 5 MG Orally Not-Taking Naproxen Not-Taking Medrol nabila 4mg as directed orally a s directed; Duration: 6 days Not-Taking Physical Therapy . . . 2-3x/week; Duration: 3-4 weeks Active Irbesartan 300 MG Orally No t-Taking Losartan Potassium 100 MG 1 tablet Orall y Once a day; Duration: 30 day(s) Not-Taking Valsartan Active Allopurinol 300 MG 1 tablet Orally Once a day; Duration: 30 day(s) Active Metoprolol Tartrate 50 MG Orally Active Aspirin 81 MG 1 tablet Orally Once a day; Duration: 30 day(s) Active Social History Tobacco Use: Social History Observation Description Date Details (start date - stop date) Never Smoker NA - NA Tobacco Use/Smoking Question Answer Notes Are you a: nonsmoker Additional Findings: Tobacco Non-User Current no n-smoker Alcohol Screen Question Answer Notes Did you have a drink containing alcohol in the p ast year? No Points 0 Interpretation Negative Tobacco use other than smoking: Question Answer Notes Are you an other tobacco user? No Problems Problem Type SNOMED Code ICD Code Onset Dates Problem Status W/U Status Risk Notes Problem Acquired deformity of right foot (disorder) (708467943) Other acquired deformities of right foot (M21.6X1) Active confirmed Problem Non-pressure chronic ulcer of left heel and midfoot limited to breakdown of skin (L97.421) Active confirmed Problem Neuropathy (029527378) Neuropathy (G62.9) Active confirmed Problem Equinus deformity of left foot (M21.6X2) Active confirmed Problem Equinus deformity of right foot (M21.6X1) Active confirmed Problem Gouty arthritis of right foot (8891683437854574) Gouty arthritis of right foot (M10.9) Active confirmed Problem 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) Active confirmed Plan Of Treatment Pending Test Test Name Order Date X ray : Foot, right 3V 12/20/2011 X ray : Foot, right 3V 11/15/2018 X ray : Foot, right 3V 08/21/2023 X ray : Foot, right 3V 09/12/2023 [id number] Removal of Foreign Body, Subcut 0 06/28/2020 Insurance Providers Payer Name Payer Address Payer Phone Subscriber Number Group Number Insured Name Patient Relationship to Insured Coverage Start Date Coverage End Date Medicare National [employer] [address] [place] [address] [id number] Jun James Self - patient is the insured [facility] [address] [place] [address] [id number] Jun James Self - patient is the insured Medical (General) History Medical History History ICD Code back, hip, knee pain chicken pox heart disease high blood pressure measles mumps neuropathy transfusions Sciatica Joint implants/screws CAD (Cholesterol) Gout Kidney disease Psoriasis/eczema Surgical History Surgery Date(Month/Year) stent insertion 2005,2022 maxfacial knee replacements L5 S1 back fusion 2015
--- OUTSIDE RECORDS SUMMARY | 2024-10-29 11:14 | XMS_ITS | Clinical Summary ---
Author Organization [facility] Address [address] [place] [address] Care Team Providers Care Cnc Wood Lathe Operator Name Role Phone Casimiro Thompson MD Primary Care Provider [phone] Michelle Diggs RN Unavailable [phone] Allergies Active Allergy Reactions Criticality Noted Date Comments Alirocumab Cough,Other (See Comments) High 07/05/2022 Muscle pain Allopurinol GI Intolerance/Nausea/Vomit ing Low 01/28/2021 Cefaclor Rash/Dermatitis Low 01/15/2024 Cefuroxime Rash/Dermatitis Low 01/15/2024 Cephalexin Rash/Dermatitis Low 08/21/2022 Diffuse rash Famotidine Other (See Comments) 10/16/2019 Leg cramps Morphine Rash/Dermatitis Low 05/25/2021 Olmesartan Other (See Comments) 10/23/2019 bp too low Statins Other (See Comments) 10/15/2023 Muscle aches and pain Ticagrelor Other (See Comments),Shortness Of Breath High 01/28/2021 Medications Repatha SureClick 140 MG/ML auto-injector ADMINISTER 1 ML UNDER THE SKIN EVERY 2 WEEKS 024 Active aspirin 81 MG chewable tablet 1 tablet Orally Once a day for 30 day(s) Active MAGNESIUM CITRATE PO Take 250 mg by mouth daily. Active betamethasone dipropionate (DIPROLENE) 0.05 % cream Apply 0.05 % topically. 025 Active Biotin 10 MG Cap Take 1 capsule by mouth daily. Active Cholecalciferol (D2000 Ultra Strength) 2000 UNITS Cap capsule Take 1 capsule (2,000 Units total) by mouth daily. Active Cyanocobalamin [address] 2,500 mcg under the tongue. Active hydrocortisone 1 % cream Apply 1 Application topically. Active ibuprofen (MOTRIN) 600 MG tablet Take 1 tablet (600 mg total) by mouth 4 times daily (every 6 hours) as needed for mild pain. Active methylPREDNISolon e (MEDROL DOSEPAK) 4 MG tabletIndications :Degeneration of intervertebral disc of lumbar region with discogenic back pain and lower extremity pain,Lumbar radiculopathy,S/P lumbar spinal fusion follow package directions 21 tablet 025 Active baclofen (LIORESAL) 10 MG tabletIndications :Degeneration of intervertebral disc of lumbar region with discogenic back pain and lower extremity pain,Lumbar radiculopathy,S/P lumbar spinal fusion Take 1 tablet (10 mg total) by mouth 3 (three) times a day as needed for muscle spasms. 21 tablet 025 Active semaglutide-weigh t management 0.5 MG/0.5ML Solution Auto-injectorIndi cations:Coronary artery disease involving [place] coronary artery of [place] heart without angina pectoris,Obesity (BMI 30.0-34.9) Inject 0.5 mL under the skin every 7 days. 2 mL 3 025 Active allopurinol (ZYLOPRIM) 300 MG tablet 024 2024 Discontinued valsartan (DIOVAN) 320 MG tablet Take 0.5 tablets (160 mg total) by mouth daily. 2024 Discontinued metoPROLOL SUCCINATE (TOPROL-XL) 50 MG 24 hr tablet 024 2024 Discontinued colchicine (COLCRYS) 0.6 mg tablet Take 1 tablet (0.6 mg total) by mouth daily. 025 2024 Discontinued predniSONE (DELTASONE) 10 MG tablet Take 1 tablet (10 mg total) by mouth. 025 2024 Discontinued MILK THISTLE PO Take 375 mg by mouth. 2024 Discontinued Semaglutide-Weigh t Management (Wegovy) 0.25 MG/0.5ML Solution Auto-injectorIndi cations:Coronary artery disease involving [place] coronary artery of [place] heart without angina pectoris Inject 0.25 mg under the skin once a week. 2 mL 3 025 2024 Discontinued Active Problems Problem Noted Date Diagnosed Date Coronary artery disease invo lving [place] coronary artery of [place] heart without angina pectoris 10/15/2023 Assessment & Plan (07/15/2024 11:35 AM EDT): Pt with CAD s/p multiple DALY per pt report - for cardiac protection we will continue Wegovy - continue to follow with primary flight operations inspector Assessment & Plan (01/15/2024 10:48 AM EDT): History of CAD with PCI to LAD. He was started on Wegovy at his last office visit he reports that he is feeling well with this medication. He is followed by primary flight operations inspector Assessment & Plan (10/15/2023 9:37 AM EDT): Pt with CAD s/p multiple DALY per pt report - for cardiac protection we will start Wegovy 0.25mg under the skin weekly for 4 weeks followed by 0.5mg weekly after that - A1C in 3 months - continue to follow with primary flight operations inspector Statin intolerance 10/15/2023 Pure hypercholesterolemia 10/15/2023 Assessment & Plan (07/15/2024 11:35 AM EDT): Patient is a history of coronary artery disease status post PCI to the LAD he also has a history of prediabetes his goal LDL is less than 70 however he has been intolerant to statins with an allergy he also tried intermittent statins he also has failed Zetia Praluent. He has some side effect to Repathat however on retrial currently is doing well. - continue Repatha 140mg every 14 days LDL 68 - Repeat lipids in Dec 2024 Assessment & Plan (01/15/2024 10:50 AM EDT): He reports that he is still tolerating Repatha 140 mg every 14 days. He will continue this recent lipid panel total cholesterol 117, HDL 36, triglycerides improved to 113, LDL direct 68. Goal LDL is less than 70 in the setting of CAD. He has been encouraged to continue to work on diet changes including low-carb diet to help with triglycerides and increase exercise and aim for 150 minutes/week Assessment & Plan (10/15/2023 9:36 AM EDT): Patient is a history of coronary artery disease status post PCI to the LAD he also has a history of prediabetes his goal LDL is less than 70 however he has been intolerant to statins with an allergy he also tried intermittent statins he also has failed Zetia Praluent. He has some side effect to Repathat however on retrial currently is doing well. 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0-34.9) 10/21/2024 Scanned Document [facility] [address] [place] [phone] Neurosurgery, Scan 10/08/2024 Telephone [facility] [address] [place] [phone] Michelle Diggs RN Establish Care 10/07/2024 2:15 PM EDT Ancillary Procedure [facility] [address] [place] [address] Provider, File Room 10/07/2024 2:15 PM EDT Ancillary Procedure [facility] [address] [place] [address] Provider, File Room 10/07/2024 2:00 PM EDT Office Visit [facility] [place] [address] [facility] [address] [place] [phone] Saji Macario MD Leyva, Lauren E, PA Degeneration of intervertebral disc of lumbar region with discogenic back pain and lower extremity pain (Primary Dx); Lumbar radiculopathy; S/P lumbar spinal fusion 10/07/2024 Orders Only [facility] [address] [place] [address] Patsy Comer PA 10/07/2024 Travel 09/24/2024 10:50 AM EDT Ancillary Procedure [facility] [address] [place] [address] Provider, File Room 09/23/[address] [facility] Heart & V[facility] [place] [facility] [address] [place] [address], [address] [place] [address] MD MSOT_Wegovy 09/17/2024 Scanned Document [facility] [address] [phone] Neurosurgery, Scan 09/16/2024 Transcribe Orders [facility] [place] [address] [facility] [address] [place] [phone] Saji Macario MD Chronic bilateral low back pain, unspecified whether sciatica present (Primary Dx); Osteoarthritis of lumbar spine, unspecified spinal osteoarthritis complication status 09/06/2024 Orders Only [facility] [address] [place] [address] Provider, File Room 09/02/2024 Telephone [facility] [address] [facility], [address] [place] [address] MD 08/14/2024 Telephone [facility] [address] [facility], [address] [place] [address] MD Other from Last 3 Months Family History Medical History Relation Name Comments Alzheimer's disease Father Aortic aneurysm Father Heart disease Father Hypertension Father Colon cancer Mother Breast cancer Sister 1 Joanne Cancer, breast Sister 1 Joanne Lung cancer Sister 1 Joanne Thyroid disease Sister 1 Joanne Fibromyalgia Sister 2 Jen Relation Name Status Comments Brother Other Father Mother Sister 1 Joanne Alive Sister 2 Jen Alive Sister 3 Gaviota Alive Social History Tobacco Use Types Packs/Day Years Used Date Smoking Tobacco: Never Smokeless Tobacco: Never Tobacco Cessation:Counseling Given: Not Answered Alcohol Use Standard Drinks/Week Comments Not Currently 0 (1 standard drink = 0.6 oz pur e alcohol) Sex and Gender Information Value Date Recorded Sex Assigned at Male 01/15/2024 10:39 AM EDT Legal Sex Male 2:39 PM EST Gender Identity Male 07/03/2023 2:41 PM EST Sexual Orientation Heterosexual (straight) 01/14 10:39 AM EDT Last Filed Vital Signs Vital Sign Reading Time Taken Comments Blood Pressure 128/88 07/15/2024 11:34 AM EDT Pulse 80 10/07/2024 2:06 PM EDT Temperature 36.1 C (97 F) 10/07/2024 2:06 PM EDT Respiratory Rate 16 10/07/2024 2:06 PM EDT Oxygen Saturation 98% 10/07/2024 2:06 PM EDT Inhaled Oxygen Concentration - - Weight 103 kg (228 lb) 10/07/2024 2:06 PM EDT Height 185.4 cm (6' 1 ) 10/07/2024 2:06 PM EDT Body Mass Index 30.08 10/07/2024 2:06 PM EDT Plan of Treatment Upcoming Encounters Date Type Department Care Team (Late st Contact Info) Description 07/20/2025 11:30 AM EDT Office Visit [facility] Heart & Vascular [place] [facility] [address] [facility], [address] [place] [phone] MD [address] [facility] [address] [place] [address] Health Maintenance Due Date Last Done Comments Hepatitis C Virus Screening 1955 DTaP/Tdap/Td Vaccines (1 - Tdap) 01/28/1972 Pneumococcal Vaccines 50+ (1 of 2 - PCV) 01/28/1972 Colonoscopy 1998 Zoster (Shingles) Vaccine (1 of 2) 2003 COVID-19 Vaccine ( - season) 2023 01/23/2021, 06/29/2020, 06/08/2020 Influenza Vaccine 11/28/2024 01/10/2024, , 02/01/2022, Additional history exists RSV Vaccine 60 years and older and Patients (1 - 1-dose 75+ series) 01/28/2028 Hepatitis B Vaccines Aged Out No long er eligible based on patient's age to complete this topic Procedures Procedure Name Priority Date/Time Associated Diagnosis Comments XR SPINE LUMBAR COMP WITH FLEX AND EXT Routine 10/07/2024 4:01 PM EDT MR SPINE ARCHIVE FOR REFERENCE ONLY Routine 10/07/2024 2:14 PM EDT CR ABDOMEN ARCHIVE FOR REFERENCE ONLY Routine 10/07/2024 2:13 PM EDT MR SPINE ARCHIVE FOR REFERENCE ONLY Routine 09/24/2024 10:45 AM EDT from Last 3 Months Results * XR SPINE LUMBAR COMP WITH FLEX AND EXT (10/07/2024 4:01 PM EDT) Anatomical Region Laterality Modality Other 10/07/2024 3:30 PM EDT 10/07/2024 3:30 PM EDT Impressions 10/13/2024 3:48 PM EDT Findings as above. Vertebral body heights are normal. No fracture or spondylolisthesis. Intervertebral disc heights are maintained without significant degenerative disc disease. Bone mineralization is normal. Soft tissues are unremarkable. Imaged portions of the sacroiliac joints are normal. IMPRESSION: Normal lumbar spine. Electronically signed by: Bairon Lyman MD 10/13/2024 03:48 PM EDT Thank you for referring your patient to us, Bairon Lyman [id number] (Electronically Signed - 10/13/2024 15:48) Narrative 10/13/2024 3:48 PM EDT EXAMINATION: XR LUMBAR SPINE CLINICAL INFORMATION: History of L5-S1 fusion with worsening back pain, DDD at L3-L4. Evaluate for instability. COMPARISON: X-ray lumbar spine 08/04/2009. TECHNIQUE: 5 views of the lumbar spine were obtained. FINDINGS: The patient is status post placement of bilateral transpedicular screws, rods, and disc spacing devices at L5-S1. No evidence of hardware fracture or loosening. Grade 1 anterolisthesis of L5 on S1, stable in flexion, neutral, and extension. Vertebral body alignment otherwise appears maintained. Severe disc degenerative change at L3-L4. Lower lumbar facet degenerative change. Vertebral body heights appear maintained. No lytic or sclerotic bony lesion is seen. Arterial calcification. Procedure Note Bairon Lyman MD - 10/13/2024 EXAMINATION: XR LUMBAR SPINE CLINICAL INFORMATION: History of L5-S1 fusion with worsening back pain, DDD at L3-L4. Evaluatefor instability. COMPARISON: X-ray lumbar spine 08/04/2009. TECHNIQUE: 5 views of the lumbar spine were obtained. FINDINGS: The patient is status post placement of bilateral transpedicular screws,rods, and disc spacing devices at L5-S1. No evidence of hardware fractureor loosening. Grade 1 anterolisthesis of L5 on S1, stable in flexion, neutral, andextension. Vertebral body alignment otherwise appears maintained. Severe disc degenerative change at L3-L4. Lower lumbar facet degenerativechange. Vertebral body heights appear maintained. No lytic or sclerotic bonylesion is seen. Arterial calcification. IMPRESSION: Findings as above. Vertebral body heights are normal. No fracture or spondylolisthesis.Intervertebral disc heights are maintained without significantdegenerative disc disease. Bone mineralization is normal. Soft tissues areunremarkable. Imaged portions of the sacroiliac joints are normal. IMPRESSION: Normal lumbar spine. Electronically signed by: Bairon Lyman MD 10/13/2024 03:48 PM EDT RPWorkstation: [id number] Thank you for referring your patient to us, Bairon Lyman [id number] (Electronically Signed - 10/13/2024 15:48) us Patsy COLON IMG LEGACY PROCEDURES Final Re sult * MR Spine Archive for Reference Only (10/07/2024 2:14 PM EDT) Only the most recent of2 resultswithin the time period is included. Narrative [place] - 10/07/2024 2:14 PM EDT This study has been auto finalized and does not contain a result. us File Room Provider IMG DIGITIZE FILMS Final Resu lt Performing Organization Address [facility] Co de Phone Number KENIA [phone] * CR Abdomen Archive for Reference only (10/07/2024 2:13 PM EDT) Narrative [place] - 10/07/2024 2:13 PM EDT This study has been auto finalized and does not contain a result. us File Room Provider IMG DIGITIZE FILMS Final Resu lt Performing Organization Address [facility]/ZIP Co de Phone Number KENIA [phone] from Last 3 Months Insurance [place] [id number] [facility] Care Teams Cnc Wood Lathe Operator Relationship Specialty Start Date End Date Casimiro Thompson MD [address] [place] [id number] PCP - General Internal Medicine 07/03/23 Michelle Diggs RN [address] [place] [id number] Nurse Navigator Surgery, Neurosurgery 10/07/24
--- OUTSIDE RECORDS SUMMARY | 2024-10-29 11:14 | XMS_ITS | Patient Health Record ---
Author Organization [facility] Address [address] [place] [address] Care Team Providers Care School Clerk Name Role Phone Casimiro Thompson MD Primary Care Provider Yang Akhtar [phone] Allergies Allergen (clinical drug ingredient) Drug/Non Drug Allergy documented on EMR Reaction Allergy Type Onset Date Status rosuvastatin Crestor Unknown Drug Allergy Acti ve Substance with 0-vbtovak-4-methylglut aryl-coenzyme A reductase inhibitor mechanism of action (substance) statins (uncoded) muscle aches Allergy Active Reason For Referral No Information Medications Medication SIG (Take, Route, Frequency, Duration) Notes Start Date End Date Status Repatha SureClick 140 MG/ML ADMINISTER 1 ML UNDER THE SKIN EVERY 2 WEEKS Subcutaneous for 28 Active Allopurinol 300 MG Oral for 90 Active Aspirin 81 81 MG 1 tablet Orally Once a day for 30 day(s) Active Wegovy 1 MG/0.5ML 0.5 mL Subcutaneous for 30 day(s) Active Tylenol PM Extra Strength 500-25 MG 1 tablet at bedtime as needed Orally Once a day for 30 day(s) prn Active Metoprolol Succinate ER 50 MG Oral for 90 Active Immunizations Vaccine Route Administration Date Status Comme nts Influenza Unknown 01/29/2020 Administered Influenza Unknown 01/28/2021 Administered Influenza Unknown 03/02/2022 Administered Influenza Unknown 02/19/2024 Administered Problems Problem Type SNOMED Code ICD Code Onset Dates Problem Status W/U Status Risk Notes Problem 452082473 Encounter for screening for malignant neoplasm of colon (Z12.11) Active confirmed Problem 007715276 History of adenomatous polyp of colon (Z86.010) Active confirmed Problem Change in bowel habit (77362474) Change in bowel habits (R19.4) Active confirmed Problem Weight loss (774508572) Weight loss (R63.4) Active confirmed Problem Generalized abdominal pain (172453644) Generalized abdominal pain (R10.84) Active confirmed Problem [id number] Preprocedural examination (Z01.818) Active confirmed Problem 612921654 Family history o f colon cancer (Z80.0) Active confirmed Problem Abdominal pain, left lower quadrant (R10.32) Active confirmed Problem Gastritis (9817176) Gastritis (K29.70) Active confirmed Problem Periumbilical pain (220334504) Abdominal pain, acute, periumbilical (R10.33) Active confirmed Problem Upper abdominal pain (72118106) Upper abdominal pain (R10.10) Active confirmed Problem Diverticulosis of colon (288074030) Diverticulosis of colon (K57.30) Active confirmed Vital Signs Temperature 97.3 degrees Fahrenheit 06/06/2024 Blood pressure diastolic 00 mm Hg 06/06/2024 Height 73 in 06/06/2024 Blood pressure systolic 000 mm Hg 06/06/2024 Weight 220 lbs 06/06/2024 BMI 29.02 kg/m2 06/06/2024 Encounters Encounter Location Date Provider Diagnosis [facility] [address] [place] [address] 06/06/2024 Yang Romano Abdominal pain, left lower quadrant R10.32 ; History of adenomatous polyp of colon Z86.010 ; Encounter for screening for malignant neoplasm of colon Z12.11 and Family history of colon cancer Z80.0 Assessments Encounter Date Diagnosis (ICD Code) Assessment Notes Treatment Notes Treatment Clinical Notes Section Notes 06/06/2024 History of adenomatous polyp of colon (ICD-10 - Z86.010) Overall, Eric appears quite well. At this point he is not having any worrisome or new GI complaints and his abdominal exam is benign. I advised him that I do not think his current brief symptoms of abdominal pain are clinically significant and I would not recommend any type of diagnostic nor therapeutic intervention. Specifically, I don't think he needs any imaging studies nor endoscopic studies. I don't think his symptoms reflect anything such as diverticulitis or recurrent kidney stones. We did review that certainly if anything changes with longer lasting pain or any other associated symptoms such as fevers, he should contact me or go to the ER for evaluation. We did review that he will be due for a followup screening colonoscopy in 2026 given his history of tubular adenomas, family history of colon cancer, and his last colonoscopy being in 2021. If things remain well he will see me in the interim on a p.r.n. basis. Eric was comfortable with this plan. Thank you again for allowing me to participate in Eric's care. I shall continue to keep you advised of his progress as needed. 06/06/2024 Abdominal pain, left lower quadrant (ICD-10 - R10.32) Overall, Eric appears quite well. At this point he is not having any worrisome or new GI complaints and his abdominal exam is benign. I advised him that I do not think his current brief symptoms of abdominal pain are clinically significant and I would not recommend any type of diagnostic nor therapeutic intervention. Specifically, I don't think he needs any imaging studies nor endoscopic studies. I don't think his symptoms reflect anything such as diverticulitis or recurrent kidney stones. We did review that certainly if anything changes with longer lasting pain or any other associated symptoms such as fevers, he should contact me or go to the ER for evaluation. We did review that he will be due for a followup screening colonoscopy in 2026 given his history of tubular adenomas, family history of colon cancer, and his last colonoscopy being in 2021. If things remain well he will see me in the interim on a p.r.n. basis. Eric was comfortable with this plan. Thank you again for allowing me to participate in Eric's care. I shall continue to keep you advised of his progress as needed. 06/06/2024 Encounter for screening for malignant neoplasm of colon (ICD-10 - Z12.11) Repeat colonoscopy in 2026 Overall, Eric appears quite well. At this point he is not having any worrisome or new GI complaints and his abdominal exam is benign. I advised him that I do not think his current brief symptoms of abdominal pain are clinically significant and I would not recommend any type of diagnostic nor therapeutic intervention. Specifically, I don't think he needs any imaging studies nor endoscopic studies. I don't think his symptoms reflect anything such as diverticulitis or recurrent kidney stones. We did review that certainly if anything changes with longer lasting pain or any other associated symptoms such as fevers, he should contact me or go to the ER for evaluation. We did review that he will be due for a followup screening colonoscopy in 2026 given his history of tubular adenomas, family history of colon cancer, and his last colonoscopy being in 2021. If things remain well he will see me in the interim on a p.r.n. basis. Eric was comfortable with this plan. Thank you again for allowing me to participate in Eric's care. I shall continue to keep you advised of his progress as needed. 06/06/2024 Family history of colon cancer (ICD-10 - Z80.0) Overall, Eric appears quite well. At this point he is not having any worrisome or new GI complaints and his abdominal exam is benign. I advised him that I do not think his current brief symptoms of abdominal pain are clinically significant and I would not recommend any type of diagnostic nor therapeutic intervention. Specifically, I don't think he needs any imaging studies nor endoscopic studies. I don't think his symptoms reflect anything such as diverticulitis or recurrent kidney stones. We did review that certainly if anything changes with longer lasting pain or any other associated symptoms such as fevers, he should contact me or go to the ER for evaluation. We did review that he will be due for a followup screening colonoscopy in 2026 given his history of tubular adenomas, family history of colon cancer, and his last colonoscopy being in 2021. If things remain well he will see me in the interim on a p.r.n. basis. Eric was comfortable with this plan. Thank you again for allowing me to participate in Eric's care. I shall continue to keep you advised of his progress as needed. Plan Of Treatment Pending Test Test Name Order Date CHEM 7 PROFILE 03/23/2020 BUN 02/22/2021 CREATININE 02/22/2021 LIVER PROFILE 02/22/2021 LIVER PROFILE 03/23/2020 AMYLASE 03/23/2020 AMYLASE 04/13/2020 AMYLASE 02/22/2021 LIPASE 02/22/2021 LIPASE 03/23/2020 LIPASE 04/13/2020 CRP 04/13/2020 CBC w DIFF 04/13/2020 CBC w DIFF 03/23/2020 SED RATE (ESR) 04/13/2020 URINALYSIS + MICROSCOPIC, CLEAN CATCH CELIAC PANEL #10 03/23/2020 CT ABD & PELVIS WITH CONTRAST 02/22/2021 CT ABD & PELVIS WITH CONTRAST 03/30/2020 US ABD 03/23/2020 Future Test Test Name Order Date COLONOSCOPY 07/02/2012 COLONOSCOPY 09/04/2017 UPPER GI ENDOSCOPY 03/23/2020 UPPER GI ENDOSCOPY 09/13/2021 COLONOSCOPY 09/13/2021 Insurance Providers Payer Name Payer Address Payer Phone Subscriber Number Group Number Insured Name Patient Relationship to Insured Coverage Start Date Coverage End Date [employer] OF [place] [address] [place] [address] [phone] [id number] ERIC CHOWDHURY Self - patient is the insured [facility] [address] [facility] [address] [phone] [id number] ERIC CHOWDHURY Self - patient is the insured Medical (General) History Medical History History ICD Code Hx tubular adenoma removed i n 09/2004; had a colonoscopy in 1999 and in 03/2008-neg. except int hemorrhoids and diverticulosis; 07/2012 negative colonoscopy except diverticulosis and internal hemorrhoids; negative colonoscopy in 09/2017 GERD/Gastritis-EGD in 03/2010-bx. neg. f or H.pylori Gingivitis-on doxycycline for > 1 year HTN Hyperlipidemia Arthritis OR in 2005 with angioplasty and 2 stents --had a neg. ETT in 2011 Denies DM,CVA,Lung disease,renal disease Kidney stones Gout EGD in 02/2020 revealed only mild gastritis and gastric biopsies negative for H. pylori 02/2020-workup for abdominal pain was negative with a normal ultrasound and CAT scan, other than a left kidney stone. Negative celiac disease laboratories. Negative upper endoscopy as above. Coronary artery stent placed in 12/2020-- Dr. Ya Upper endoscopy in September revealed some friable gastritis felt to be related to his aspirin and clopidogrel--biopsies were negative for H. pylori; duodenal biopsies were negative for celiac disease. Colonoscopy in September of 2021 revealed small tubular adenomas that were removed Surgical History Surgery Date(Month/Year) L5/S1 Fusion Left knee total replacement 2015 Right knee total replacement
--- OUTSIDE RECORDS SUMMARY | 2024-10-29 11:14 | XMS_ITS | Data Portability ---
Author Organization [facility] - [place] [facility], [facility] Address [address] [place] [address] Care Team Providers Care Breakdown Worker Name Role Phone ADEELCASIMIRO BROWN Primary Care Provider [phone] Assessment Encounter Date Assessment Date Assessment LastModified by Organization Details LastModified Time 10/11/2023 10/11/2023 I am seeing the patient today under the supervision of Dr. Hollis who was available but who did not see the patient. Patient comes to the office with known Bi-lateral shoulder impingement syndrome. The patient has done well with conservative management for their shoulder pain. Has had increasing discomfort over the past several weeks without injury. Pain is generalized about the shoulder. Off and on discomfort is noted at night. PFMSH and ROS has been reviewed, updated, and signed by me and is located in the patient's chart. PHYSICAL FINDINGS: The patient is well appearing, in no apparent distress, alert and oriented to person, place and time. Gait is symmetric. No significant swelling, warmth or erythema about either shoulder. There is mild tenderness to palpation about the shoulder and AC joint. Active range of motion of the shoulder is near full with mild to moderate pain through mid range manipulations. 4/5 strength of the shoulder, but the rotator cuff seems to fire well. Good stability of the shoulder. Peripheral, vascular, lymphatic examination, skin, neurologic coordination, reflexes, sensation are within normal limits. ASSESSMENT: Impingement SyndromeBi-later al shoulder. PLAN: The patient has done well with conservative management in regards to the Bi-lateral shoulder. We discussed the role of medications, physical therapy, injections, and potential surgical interventions depending on conservative outcome Continued conservative management recommended. Along with cortisone injection today. Please see procedure note. Patient will follow up as directed. h cortisone injection today. Please see procedure note. Patient will follow up as directed. [email or web address] Not available 10/11/2023 14:49:53 10/25/2023 10/25/2023 I am seeing the patient today under the supervision of allegra quach but who did not see the patient. The patient presents today for follow-up. Has known trochanteric bursitis of the r hip. Has had previous cortisone injection which gave relief until recently. Has had no recent trauma, no fevers or chills, no neurovascular changes. Presents today for further evaluation. PAST MEDICAL/SURGICAL HISTORY Past medical history is reviewed per intake sheet. PHYSICAL FINDINGS On physical examination, the patient is well appearing and in no apparent distress, alert and oriented x3. Gait is symmetric. Physician examination of the hip reveals the skin to be intact, normal musculature, continued tenderness on palpation over the greater trochanter. No pain with range of motion of the hip, has full range of motion, no crepitus noted with range of motion. No significant pain with straight leg raise. 2 x-ray views of the hip were independently reviewed today ASSESSMENT Symptomatic trochanteric bursitis of the R hip. PLAN I reviewed the findings with the patient, discussed different treatment options which included medications physical therapy and injections The patient wishes to proceed with cortisone injection. Please see procedure note. Patient will follow up as discussed Patient is also status post right total knee arthroplasty a few years out now has been having some crepitus audible crepitus as well as palpable crepitus with flexion and squatting. Laterally. At this point recommend following up with Dr. Hutton for diagnostic arthroscopy for scar tissue debridement of his right total knee arthroplasty [email or web address] Not available 10/25/2023 13:05:12 09/03/2024 09/03/2024 I am seeing the patient today under the supervision of Dr Hollis who was available but who did not see the patient. [email or web address] Not available 09/03/2024 07:35:35 Plan of Treatment Reminders Order Date Submit Date Provider Last Modified By Organization Details Last Modified Time Details Appointments None recorded. Lab rf (rheumato id factor), serum 2023 024 BiocerosUZwan [facility] (Centralized Electronic Ordering - All Locations), Patient Can Go To The Location Of Their Choice, [id number] 4 15:17:13 ISABEL (antinucl ear antibodie s) screen, serum 2023 024 [facility]), Patient Can Go To The Location Of Their Choice, 4 00:05:32 rf (rheumato id factor) + anti-ccp abs, serum 2023 024 [facility] - [facility] Locations), Patient Can Go To The Location Of Their Choice, [id number] 4 00:05:32 C-reactiv e protein, quantitat ashley, serum or plasma 2023 024 [email or web address] cristina [facility] (Centralized Electronic Ordering - All Locations), Patient Can Go To The Location Of Their Choice, [id number] 4 15:19:09 ESR (erythroc yte sedimenta tion rate), blood 2023 024 [facility] - [facility] Locations), Patient Can Go To The Location Of Their Choice, [id number] 4 00:05:33 CBC w/ auto diff 2023 024 [facility] - [facility]ations), Patient Can Go To The Location Of Their Choice, [id number] 4 00:05:31 Referral None recorded. Procedures None recorded. Surgeries None recorded. Imaging XR, foot, 2 view 2023 024 seng [facility], [address], [place], [address], 4 15:31:20 XR, elbow, 2 view 2023 024 [email or web address], [address], [place], [address], 4 15:31:20 Medication Orders None recorded. Patient TargetsNo targets recorded. Patient InstructionsNo instructions recorded. Reason for Referral None Reported. Results Created Date Observation Date Name Description Value Unit Range Abnormal Flag Note LastModifiedBy Organization Detail LastModifiedTime 10/16/19 24 10/17/2023 CBC WITH DIFFE RENTI AL/PL ATELE T WBC 15.0 x10e3 /uL 3.4-10 .8 above high normal Not Available [facility] ([facility]) [address] [facility], [place], [address], 10/18/2023 00:05:31 10/16/19 24 10/17/2023 CBC WITH DIFFE RENTI AL/PL ATELE T RBC 5.54 x10e6 /uL 4.14-5 .80 Not Available [facility] ([facility]) [address] [place], [address], 10/18/2023 00:05:31 10/16/19 24 10/17/2023 CBC WITH DIFFE RENTI AL/PL ATELE T hemoglobin 16.2 g/dL 13.0-1 7.7 Not Available [facility] ([facility]) [address] [place], [address], 10/18/2023 00:05:31 10/16/19 24 10/17/2023 CBC WITH DIFFE RENTI AL/PL ATELE T hematocrit 50.2 % 37.5-5 1.0 Not Available [facility] ([facility]) [address] [place], [address], 10/18/2023 00:05:31 10/16/19 24 10/17/2023 CBC WITH DIFFE RENTI AL/PL ATELE T MCV 91 fL 79-97 Not Available [facility] ([facility]) [address] [place], [address], 10/18/2023 00:05:31 10/16/19 24 10/17/2023 CBC WITH DIFFE RENTI AL/PL ATELE T MCH 29.2 pg 26.6-3 3.0 Not Available [facility] ([facility]) [address] [place], [address], 10/18/2023 00:05:31 10/16/19 24 10/17/2023 CBC WITH DIFFE RENTI AL/PL ATELE T MCHC 32.3 g/dL 31.5-3 5.7 Not Available [facility] ([facility]) [address] [facility], [place], [address], 10/18/2023 00:05:31 10/16/19 24 10/17/2023 CBC WITH DIFFE RENTI AL/PL ATELE T RDW 15.5 % 11.6-1 5.4 above high normal Not Available [facility] ([facility]) [address] [place], [address], 10/18/2023 00:05:31 10/16/19 24 10/17/2023 CBC WITH DIFFE RENTI AL/PL ATELE T platelets 262 x10e3 /uL 150-45 0 Not Available [facility] ([facility]) [address] [facility], [place], [address], 10/18/2023 00:05:31 10/16/19 24 10/17/2023 CBC WITH DIFFE RENTI AL/PL ATELE T neutrophils 70 % not estab. Not Available [facility] ([facility]) [address] [place], [address], 10/18/2023 00:05:31 10/16/19 24 10/17/2023 CBC WITH DIFFE RENTI AL/PL ATELE T lymphs 16 % not estab. Not Available [facility] ([facility]) [address] [place], [address], 10/18/2023 00:05:31 10/16/19 24 10/17/2023 CBC WITH DIFFE RENTI AL/PL ATELE T monocytes 10 % not estab. Not Available [facility] ([facility]) [address] [place], [address], 10/18/2023 00:05:31 10/16/19 24 10/17/2023 CBC WITH DIFFE RENTI AL/PL ATELE T eos 0 % not estab. Not Available [facility] ([facility]) [address] [place], [address], 10/18/2023 00:05:31 10/16/19 24 10/17/2023 CBC WITH DIFFE RENTI AL/PL ATELE T basos 1 % not estab. Not Available [facility] ([facility]) [address] [place], [address], 10/18/2023 00:05:31 10/16/19 24 10/17/2023 CBC WITH DIFFE RENTI AL/PL ATELE T immature cells SUPERVISOR TUNNEL HEADING Not Available [facility] ([facility]) [address] [place], [address], 10/18/2023 00:05:31 10/16/19 24 10/17/2023 CBC WITH DIFFE RENTI AL/PL ATELE T neutrophils (absolute) 10.7 x10e3 /uL 1.4-7. 0 above high normal Not Available [facility] ([facility]) [address] [place], [address], 10/18/2023 00:05:31 10/16/19 24 10/17/2023 CBC WITH DIFFE RENTI AL/PL ATELE T lymphs (absolute) 2.4 x10e3 /uL 0.7-3. 1 Not Available [facility] ([facility]) [address] [place], [address], 10/18/2023 00:05:31 10/16/19 24 10/17/2023 CBC WITH DIFFE RENTI AL/PL ATELE T monocytes(ab solute) 1.4 x10e3 /uL 0.1-0. 9 above high normal Not Available [facility] ([facility]) [address] [place], [address], 10/18/2023 00:05:31 10/16/19 24 10/17/2023 CBC WITH DIFFE RENTI AL/PL ATELE T eos (absolute) 0.0 x10e3 /uL 0.0-0. 4 Not Available [facility] ([facility]) [address] [facility], [place], [address], 10/18/2023 00:05:31 10/16/19 24 10/17/2023 CBC WITH DIFFE RENTI AL/PL ATELE T baso (absolute) 0.1 x10e3 /uL 0.0-0. 2 Not Available [facility] ([facility]) [address] [place], [address], 10/18/2023 00:05:31 10/16/19 24 10/17/2023 CBC WITH DIFFE RENTI AL/PL ATELE T immature granulocytes 3 % not estab. Not Available [facility] ([facility]) [address] [facility], [place], [address], 10/18/2023 00:05:31 10/16/19 24 10/17/2023 CBC WITH DIFFE RENTI AL/PL ATELE T immature grans (abs) 0.4 x10e3 /uL 0.0-0. 1 above high normal (An eleva stanley perce ntage of Immat ure Granu locyt es has not been found to be clini cam signi fican t as a sole clini michael predi ctor of disea se. Does NOT inclu de bands or blast cells . Pregn gladys assoc iated physi ologi michael leuko cytos is may also show incre ased immat ure granu locyt es witho ut clini michael signi fican ce.) Not Available [facility] ([facility]) [address] [place], [address], 10/18/2023 00:05:31 10/16/19 24 10/17/2023 CBC WITH DIFFE RENTI AL/PL ATELE T NRBC [employer]PER[employer]OR TUNNEL HEADING Not Available [facility] ([facility]) [address] [facility], [place], [address], 10/18/2023 00:05:31 10/16/19 24 10/17/2023 CBC WITH DIFFRoman GAYTAN AL/PL ATELE T hematology comments: SUPERVISOR TUNNEL HEADING Not Available [facility] ([facility]) [address] [facility], [place], [address], 10/18/2023 00:05:31 10/16/19 24 10/17/2023 RHEUM ATOID ARTHR ITIS PROFI LE rheumatoid factor (rf) <10.0 IU/mL <14.0 Not Available [facility] ([facility]) [address] [facility], [place], [address], 10/18/2023 00:05:32 10/16/19 24 10/17/2023 RHEUM ATOID ARTHR ITIS PROFI LE anti-ccp Ab, IgG/IgA 3 units 0-19 Negat ashley <20 Weak posit ashley 20 - 39 Moder ate posit ashley 40 - 59 Stron g posit ashley >59 Not Available [facility] ([facility]) [address] [facility], [place], [address], 10/18/2023 00:05:32 10/16/19 24 10/17/2023 ISABEL W/REF DENNISE ISABEL direct Negati ve negati ve Not Available [facility] ([facility]) [address] [facility], [place], [address], 10/18/2023 00:05:32 10/16/19 24 10/17/2023 SEDIM ENTAT ION RATE- WESTE RGREN sedimentatio n rate-westerg mikki 15 mm/HR 0-30 Not Available [facility] ([facility]) [address] [facility], [place], [address], 10/18/2023 00:05:33 12/29/19 24 06/06/2022 imagi ng/di agnos tic resul t No observ ation record ed. [email or web address] Not Available 11/30 00:43:13 12/29/19 24 02/28/2023 imagi ng/di agnos tic resul t No observ ation record ed. [email or web address] Not Available 11/30 00:43:31 12/29/19 24 11/26/2021 imagi ng/di agnos tic resul t No observ ation record ed. [email or web address] Not Available 11/30 00:43:47 12/29/19 24 10/22/2018 imagi ng/di agnos tic resul t No observ ation record ed. [email or web address] Not Available 11/30 00:44:22 12/29/19 24 10/22/2018 imagi ng/di agnos tic resul t No observ ation record ed. [email or web address] Not Available 11/30 00:44:23 Result Notes None recorded. Problems Name Problem SNOMED Code Status Onset Date Resolution Date Notes Provider Name and Address Organization Details Recorded Time Trochanter ic bursitis of left hip 0674402107606 03 Active 2023 Frank Peter PA-C [address], [place], [address] , [facility] 4 11:18:33 Trochanter ic bursitis of right hip 2228381080243 00 Active 2023 Frank Peter PA-C [address], [place], [address] , [facility] 5 07:35:39 Pain of right knee joint 8900789839410 00 Active 2023 Odilon Hutton MD [address], [place], [address] , [facility] 4 09:52:37 Low back pain 109441548 Active 2012 Status : 'A'; Not Available [facility] 4 12:12:43 Pain of left elbow joint 5762904551828 9104 Active 2023 Ernie Martinez PA-C [address], [place], [address] , [facility] 4 13:24:36 Pain in right foot 8962942002424 07 Active 2023 Ernie Martinez PA-C [address], [place], [address] , [facility] 4 13:24:46 Localized, primary osteoarthr itis of elbow 507857846 Active 2023 Ernie Martinez PA-C [address], [place], [address] , [facility] 4 13:53:42 Right Achilles tendinitis 9362617165227 02 Active 2023 Ernie Martinez PA-C [address], [place], [address] , [facility] 4 13:53:51 Impingemen t syndrome of left shoulder region 2211548870247 04 Active 2023 MATHEW suárez [facility] 4 14:40:02 Impingemen t syndrome of right shoulder region 4625749229552 02 Active 2023 MATHEW suárez [facility] 4 14:40:02 Problem Notes None recorded. Procedures Surgical History Date Name Laterality Status Provider Name and Address Organization Details Recorded Time 5 JZHip Inj completed Frank Peter PA-C [address], [place], [address], [facility] 09/03/2024 07:35:31 4 JZHip Inj completed Frank Peter PA-C [address], [place], [address], [facility] 10/25/2023 13:05:15 4 JZShoulder INJ Eduardo completed Frank Peter PA-C [address], [place], [address], [facility] 10/11/2023 14:49:29 4 Elbow Kenalog 1cc Asp & Inj, L/R completed Ernie Martinez [facility]-C [address] [facility] [address], [place], [address], [facility] 08/13/2023 13:53:23 Imaging Results None recorded. Procedure Notes None recorded. Medical Equipment None Reported. Allergies Allergen ID Allergen Name Allergen Category Reaction Reaction Severity Criticality Documentation Date Start Date Code Code System Note Provider Name and Address Organization Details Recorded Time 52165 Product containin g 3-hydroxy -3-methyl glutaryl- coenzyme A reductase inhibitor (product) medicatio n Not available Not available Not available 07/02/20232014 06012 009 SNOMED Aller gyNam e: 'Stat ins'; Not Available [facility] 4 11:53:17 Medications Name Sig Start Date Stop Date Status Note LastModified by Organization Details LastModified Time amoxicillin 500 mg capsule TAKE 4 CAPSULES BY MOUTH 1 HOUR BEFORE APPOINTME NT 10/18 completed Not Available Not Available Not Available trazodone 50 mg tablet 10/18 completed Not Available Not Available Not Available metoprolol succinate ER 50 mg tablet,exte nded release 24 hr 09/03 completed Not Available Not Available Not Available sucralfate 1 gram tablet TAKE 1 TABLET BY MOUTH THREE TIMES DAILY 30 MINUTES BEFORE A MEAL 10/18 completed Not Available Not Available Not Available amlodipine 2.5 mg tablet 10/18 completed Not Available Not Available Not Available clopidogrel 75 mg tablet TAKE 1 TABLET BY MOUTH DAILY 10/18 completed Not Available Not Available Not Available benzonatate 100 mg capsule 10/18 completed Not Available Not Available Not Available doxycycline monohydrate 100 mg capsule 10/18 completed Not Available Not Available Not Available pantoprazol e 40 mg tablet,migdalia yed release 10/18 completed Not Available Not Available Not Available pseudoephed rine-guaife nesin ER 80-700 mg tablet,exte nded release One PO TID PRN as directed 01/18 completed Statu s: 'Disc ontin ued'; Not Available Not Available Not Available betamethaso ne dipropionat e 0.05 % topical cream APPLY TOPICALLY TO RASH ON TRUNK AND EXTREMITI ES TWICE DAILY NEEDED 09/03 completed Not Available Not Available Not Available codeine 10 mg-guaifene sin 100 mg/5 mL oral liquid TAKE 5 ML BY MOUTH THREE TIMES DAILY NEEDED FOR COUGH 10/10 completed Not Available Not Available Not Available allopurinol 300 mg tablet 09/03 completed Not Available Not Available Not Available mupirocin 2 % topical ointment APPLY THIN LAYER TOPICALLY TO THE AFFECTED AREA DAILY 09/03 completed Not Available Not Available Not Available methylpredn isolone 4 mg tablets in a dose pack FOLLOW PACKAGE DIRECTION S 10/18 completed Not Available Not Available Not Available albuterol sulfate HFA 90 mcg/actuati on aerosol inhaler INHALE 2 PUFFS BY MOUTH INTO THE LUNGS EVERY 6 HOURS NEEDED FOR WHEEZING 10/18 completed Not Available Not Available Not Available ketoconazol e 2 % topical cream APPLY TOPICALLY TO THE AFFECTED AREA DAILY 09/03 completed Not Available Not Available Not Available valsartan 160 mg tablet 09/03 completed Not Available Not Available Not Available nitrofurant oin monohydrate /macrocryst als 100 mg capsule TAKE 1 CAPSULE BY MOUTH EVERY 12 HOURS 10/18 completed Not Available Not Available Not Available aspirin 09/03 completed Not Available Not Available Not Available diclofenac 1 % topical gel APPLY 3 TO 4 GRAMS TOPICALLY TO THE AFFECTED AREA THREE TIMES DAILY DIRECTED active Not Available Not Available No t Available oxycodone HCl-oxycodo ne-ASA RX GIVEN AT [facility], AT TIME OF SURGERY 01/18 completed Statu s: 'Disc ontin ued'; Not Available Not Available Not Available Repatha SureClick 140 mg/mL subcutaneou s pen injector ADMINISTE R 1 ML UNDER THE SKIN EVERY 2 WEEKS active Not Available Not Available No t Available Wegovy 0.25 mg/0.5 mL subcutaneou s pen injector ADMINISTE R 0.25 MG UNDER THE SKIN 1 TIME A WEEK active Not Available Not Available No t Available Wegovy 0.5 mg/0.5 mL subcutaneou s pen injector ADMINISTE R 0.5 MG UNDER THE SKIN 1 TIME A WEEK active Not Available Not Available No t Available Vitals Date Recorded Body height Body mass index (BMI) Body weight Provider Name and Address Organization Details Last Updated DateTime 08/13/2023 185.42 cm 33.6 kg/m2 308100.05 g Ernie Martinez PA-C [facility] [address], [address], [facility] 08/13/2023 13:22:21 Date Recorded Body height Body mass index (BMI) Body weight Provider Name and Address Organization Details Last Updated DateTime 09/03/2024 185.42 cm 33.6 kg/m2 362404.05 g Solo Alexis [facility] 09/03/2024 07:21:03 Date Recorded Body height Body mass index (BMI) Body weight Provider Name and Address Organization Details Last Updated DateTime 10/11/2023 185.42 cm 33.6 kg/m2 413117.05 g MATHEW ZIMMERMAN [facility] 10/11/2023 14:40:31 Date Recorded Body height Body mass index (BMI) Body weight Provider Name and Address Organization Details Last Updated DateTime 10/25/2023 185.42 cm 33.6 kg/m2 882615.05 g Solo Alexis [facility] 10/25/2023 13:02:18 Date Recorded Body height Body mass index (BMI) Body weight Provider Name and Address Organization Details Last Updated DateTime 12/13/2023 185.42 cm 33.6 kg/m2 641719.05 g MY [place] [facility] 12/13/2023 09:33:38 Social History None recorded. Functional Status None recorded. Mental Status None recorded. Family History Nothing Reported. Medical History Condition Response Gastrointestinal Disease Y Heart Disease Y Arthritis Y Hypertension Y Past Encounters Encounter ID Performer Location Encounter Start Date Encounter Closed Date Diagnosis/Indication Diagnosis SNOMED-CT Code Diagnosis ICD10 Code Diagnosis Note [id number] Ernie Martinez [place] [address] 08/13/2023 13:05:37 08/23/2023 15:31:20 Pain of left elbow joint 8501116067 3918945 M25.522 Pain in right foot 51347 47114 99558 M79.671 Localized, primary osteoarthritis of elbow 409806029 M19.029 Right Achi lles tendinitis 0069964263 45161 M76.61 [id number] JEOVANY Perry [address] [place] [address] 10/11/2023 14:31:56 11/07/2023 11:00:50 Impingement syndrome of left shoulder region 6157348830 65466 M75.42 Impingemen t syndrome of right shoulder region 0895230095 52584 M75.41 [id number] Frank Peter PA-C [facility] [address] [place] [address] 10/25/2023 12:52:42 11/21/2023 16:13:03 Trochanteric bursitis of right hip 9028310784 45241 M70.61 [id number] MD Luis Lopez [address] [place] [address] 12/13/2023 09:14:37 01/08/2024 14:13:22 Pain of right knee joint 0210502744 64359 M25.658 [id number] Frank Peter PA-C [facility] [address] [place] [address] 09/03/2024 07:12:01 09/19/2024 11:22:28 Trochanteric bursitis of right hip 0135714125 23481 M70.61 Health Concerns Section Related Observation LastModified by Organization Detai ls LastModified Time None Recorded Concern Status LastModified by Organization Details LastModified Time None Recorded Advance Directives Directive None Recorded Payers Insurance Date Sequence Insurance Name Policy Number Policy Leo Covered Member ID Leo Member ID Guarantor Name 09/03/2024 1 [place] [employer] Jun James [id number] Jun James 09/03/2024 2 [facility] - PLAN 1 (MEDICARE SUPPLEMENT) [id number] 1 Jun James [id number] Jun James Notes Date Note Type Note Provider Name and Address Organization Details Recorded Time 08/13/2023 text/html I am seeing the patient today under the supervision of Dr. Vazquez who was available but who did not see the patient for today's Urgent Care walk in visit. HPI: Patient is evaluated today for his left elbow and right Achilles. The patient states he was traveling was down visiting the [facility] and went to knuckle bender his elbow and suddenly was unable to fully flex the elbow. He had some pain associated with this he has continued to have difficulty with terminal flexion and reports some swelling. The patient has additional complaints of right Achilles insertional pain with localized swelling which is worse with prolonged standing walking. He denies any traumatic sudden change of symptoms. Concerned by this he now presents to our walk-in urgent care facility. Past family, medical, social history and review of systems has been reviewed, updated and signed by me and is located in the patient s chart. PHYSICAL EXAMINATION: The patient is well appearing and in no apparent distress. Alert and oriented x3. Gait is symmetric. Examination of the left elbow notes range of motion 5 to 120 degrees with a firm endpoint, 60 degrees supination 45 degrees pronation, no irritability over the cubital tunnel, negative Tinel sign, no evidence of PLRI instability, olecranon fossa benign without erythema redness or warmth. Peripheral, vascular, lymphatic examination, skin, neurological, coordination, reflexes, sensation are within normal limits. X-RAY REPORT: X-rays were ordered, obtained and independently reviewed today at [facility] 3 views of the left elbow findings include multiple ossifications consistent with loose bodies in the anterior chamber of the elbow, medial gutter and lateral gutter, no obvious end-stage osteoarthritis present, small olecranon spur. X-rays of the right foot show plantar spur off the inferior aspect of the calcaneus and superior portion within the Achilles with retro-Achilles swelling. IMPRESSION: #1. Multiple intra-articular loose bodies left elbow #2. Insertional Achilles tendinitis. PLAN: Treatment options discussed ultimately decision was made to go forward with conservative treatment for the Achilles with nighttime splints heel lift and stretching exercises and the risk and benefits of topical Voltaren. With regards to the left elbow after brief conversation decided to go forward with intra-articular injection to the left elbow. Postinjection precautions reviewed if symptoms persist would consider arthroscopic intra-articular debridement with loose body removal. Ernie Martinez PA-C [address] [facility] [address], [place], [address], [place] - [facility] 08/13/2023 13:54:47 12/13/2023 text/html HPI: Jun jack ts As a follow-up from prior urgent care visit today for evaluation of his right knee. He is status post right total knee arthroplasty performed in May 2022. He admits to intermittent discomfort ever since undergoing the surgical procedure. He recently played golf and developed increased right knee pain. He denies any specific injury. He describes his pain as being both along the medial and lateral aspect of the knee. This pain will radiate up the lateral thigh to the hip. His symptoms are not constant, but rather common ago. He denies any groin pain or radicular symptoms. He takes Tylenol on occasion for his pain. He is here today for treatment recommendations.Noel mazariegos reports his right patellofemoral crepitance, for which she was scheduled today's appointment, is been improved by recent physical therapy. PMH/PSH/MEDS/ALL/FMH/S OC HX/ROS are reviewed in detail per my medical intake sheet. General Exam: Vital signs are as noted below Mental status: Alert and lucid. Normal insight, affect and grooming. PRESIDENT ERGONOMIC CONSULTING: Gross motor coordination is intact. No spasticity or clonus noted. HEENT- unremarkableHeart -RRR without murmur's, rubs, gallopsAbdomen- soft non-tender, non distended, positive bowel signsLungs clear bilalterallyno skin lesionsintact light touch, distal pulses, and reflex EXAMINATION: The patient is well appearing and in no apparent distress. Alert and oriented x3. Gait is symmetric. Right knee reveals a surgical scar over the anterior knee, otherwise no deformity upon inspection. No joint effusion, edema, erythema, ecchymosis, or lesions. Neurovascularly intact. No localized tenderness. ROM is 0-125 and pain-free. Minimal crepitus noted Primarily about the patellofemoral articulation. Stability intact with anterior, posterior, and varus/valgus stress at both 0 and 30 degrees of flexion. 5/5 strength. Calf/leg compartments soft and compressible. Right hip reveals no obvious deformity upon inspection. No edema, erythema, ecchymosis, or lesions. Neurovascularly intact. Tenderness is present over the greater trochanter. ROM full in all planes. Negative impingement sign, Casimiro's, Stinchfield test, and straight leg raise. No instability. 5/5 strength. Calf/leg compartments soft and compressible. X-rays ordered, obtained and reviewed at [facility] today include 3 views of the right knee. Images reveal total knee arthroplasty components to be in good position and without evidence of loosening. No change when compared to prior films. Impression Arthrofibrosis right knee approximately 18 months status post right TKA. Patient achieved good range of motion postoperatively but now is having increasing and recurrent discomfort associated with crepitance in the patellofemoral articulation. He complains of pain, low-grade swelling and intermittent irritability. He is unhappy with the outcome from his TKA given his persistent pain and swelling. No evidence for active infection. We discussed the possible role for right knee diagnostic and operative arthroscopy for Carlos fibrotic lysis of adhesions and debridement. However, Given her recent improvement through physical therapy we are recommending holding off on any arthroscopic intervention for his right knee. Educated him about some additional stretching for his chronic trochanteric bursitis on the right. Discomfort will see me back if symptoms persist or worsen over time again. Odilon Hutton MD [address] [place], [place] [address] [address], [place], [address], [facility] - [facility] 12/13/2023 09:52:50
== END 2024-10-29 11:22 | disposition home or self-care (01) ==
LOC: HO.HCS 10:34
PROVIDERS: PCP Internal Medicine; Visit Provider Internal Medicine Cardiovascular Disease
DX: I10 Essential (primary) hypertension (principal); Z98.61 Coronary angioplasty status
CPT/HCPCS: 93010; 99214

== ENCOUNTER → 2024-10-29 10:33 | Outpatient (BNVA) | payer MEDICARE, OTHER, SELFPAY | PROVIDERS: PCP Internal Medicine; Visit Provider Internal Medicine Cardiovascular Disease | DX: I10 Essential (primary) hypertension (principal); Z98.61 Coronary angioplasty status | CPT/HCPCS: 93005; 99212 ==

== ENCOUNTER 2024-11-10 07:50 | Outpatient (RCR) | payer MEDICARE, OTHER, SELFPAY | END 2024-11-10 17:05 | disposition home or self-care (01) | LOC: HO.PT 07:50 | PROVIDERS: PCP Internal Medicine; Visit Provider Physician Assistant Medical | DX: M51.362 Other intervertebral disc degeneration, lumbar region with discogenic back pain and lower extremity pain (principal); M54.16 Radiculopathy, lumbar region; Z98.1 Arthrodesis status | CPT/HCPCS: 97110; 97161 ==

== ENCOUNTER 2024-12-07 15:33 | Emergency (ER) | payer MEDICARE, OTHER, SELFPAY ==
--- NOTE | ~2024-12-07 | XR_ITS ---
CLINICAL HISTORY: post reduction, pain Radiographs of the right foot, 3 views Comparison: CR - XR FOOT RT MIN 3V - 12/07/24 16:06 EDT Findings: Interval reduction of the previously seen laterally displaced fracture of the 4th proximal phalanx. Residual lateral disc measures up to 1 mm which is unlikely to be clinically significant. Fracture of the 1st distal phalanx with up to 4 mm of displacement, previously 3 mm. Unchanged appearance of the fracture of the 5th proximal phalanx. No dislocation. Mild degenerative change. Calcifications in the region of the plantar fascia with a calcaneal spur and enthesophyte at the insertion of the Achilles tendon. Soft tissue swelling. Impression: Successful reduction of the fracture of the 4th proximal phalanx. No significant interval change to the fractures of the 1st distal and 5th proximal phalanges. This document has been electronically signed by: Jennifer Juan MD on 12/07/2024 18:40:45
--- NOTE | ~2024-12-07 | XR_ITS ---
CLINICAL HISTORY: pain, injury Radiographs of the right foot, 3 views Comparison: None available Findings: There is an obliquely oriented fracture through the 1st distal phalanx with up to 3 mm of displacement without intra-articular extension. There is a horizontally oriented fracture through the diaphysis of the 4th proximal phalanx with up to 3 mm lateral displacement of the distal fracture fragment. There is a fracture of the proximal metadiaphysis of the 5th proximal phalanx without significant displacement. No dislocation.Mild degenerative change. Calcaneal spur enthesophyte at the insertion of the Achilles tendon. Calcifications in the region of the plantar fascia. Soft tissue swelling. Impression: Fractures of the 1st distal phalanx and 4th and 5th proximal phalanges. This document has been electronically signed by: Jennifer Juan MD on 12/07/2024 16:37:39
[2024-12-07 15:36] VITALS: BP 162/97; PULSE 102; RESP 16; TEMP 36.5; O2SAT 96; BMI 29.0
--- NOTE | 2024-12-07 15:40 | ED_ITS ---
HPI - General Adult General Chief complaint: Extremity Injury, Lower Stated complaint: right foot dropped steel on it/ bleeding Time Seen by Provider: 12/07/24 17:13 Source: patient and family (patient's ) Mode of arrival: wheelchair Limitations: no limitations History of Present Illness ED Provider: Breonna Goldstein PA-C HPI narrative: Patient is a 69 year old assigned male at with a history of CAD on ASA presenting to the emergency department today with right foot pain. Patient states that he was moving approximately 60 lbs of steel when it fell onto his foot and injured it. Patient denies any other complaints at this time. Location: right and lower extremity Relieving factors: none Exacerbating factors: none Associated symptoms: denies other symptoms Treatments prior to arrival: other (dressing applied ) Related Data Home Medications ?Medication ?Instructions ?Recorded ?Confirmed aspirin 81 mg tablet,delayed 81 mg PO DAILY 11/24/20 0 10/29/24 release semaglutide (weight loss) 0.25 mg subcut 01/23/24 07/0 2/25 mg/0.5 mL subcutaneous pen injector (Pavel) Previous Rx's ?Medication ?Instructions ?Recorded evolocumab 140 mg/mL subcutaneous 140 mg subcut Q2W #2 mL 07/15/24 pen injector (Lisa Kennedy) metoprolol succinate 50 mg 50 mg PO DAILY #90 tabs 06/24 tablet,extended release 24 hr amoxicillin 875 mg-potassium 1 tab PO BID 7 days #14 t abs 12/07/24 clavulanate 125 mg tablet Allergies Allergy/AdvReac Type Severity Reaction Status Date / Time Vctdejw-AGV-ZvI Reductase Allergy Intermediate MUSCLE Verified 12/07/24 15:38 Inhibitor (BEAGPFN-BEH-VAJ WEAKNESS REDUCTASE INHIBITOR) morphine Allergy Rash Verified 12/07/24 15:38 alirocumab (From Praluent AdvReac Severe Cough Verified 12/07/24 15:38 Pen) Review of Systems 2 Constitutional: Constitutional: Reports as per HPI Eyes: Eyes: Reports as per HPI ENT: Reports as per HPI Cardiovascular: Cardiovascular: Reports as per HPI Respiratory: Respiratory: Reports as per HPI Gastrointestinal: Gastrointestinal: Reports as per HPI Genitourinary: Genitourinary: Reports as per HPI Musculoskeletal: Comments: right foot pain Integumentary/Breasts: Skin/Breast: Reports as per HPI Neurologic: Reports as per HPI Psychiatric: Psychiatric: Reports as per HPI Endocrine: Endocrine: Reports as per HPI Hematologic/Lymphatic: Hematologic/Lymphatic: Reports as per HPI Allergic/Immunologic: Allergic/Immunologic: Reports as per HPI [facility] Past Medical History Attestation statement: The following information was validated with the patient. (all information validated with the patient's ) Source: old records reviewed, obtained from family (patient's provided additional history and confirmed the history provided by the patient. ) and nursing notes reviewed Medical History Thrombosed external hemorrhoid On beta johan at home Pulmonary nodule Hoarseness Cough Fusion of lumbosacral spine Tubular adenoma Gout Kidney stone Myocardial infarct Arthritis Hyperlipemia HTN (hypertension) GERD (gastroesophageal reflux disease) Surgical History History of eyelid surgery Hx of cystoscopy History of total right knee replacement (TKR) Hx of left cataract extraction History of cardiac cath History of mandibular surgery History of esophagogastroduodenoscopy (EGD) H/O lithotripsy H/O spinal fusion H/O colonoscopy History of total left knee replacement Family History Family History Mother Colon cancer Father Alzheimer's dementia S/P triple vessel bypass Social History Social History Are you a primary child care assistant to a significant other at home: No Do you presently have visiting nurse or other home services: No Alcohol intake: never Patient Tobacco Use Status: Never used Tobacco Second Hand Smoke Exposure: No Advance Directives: Yes Advance Directives Information Provided: No Advance Directives on File: No Do you have a plan to hurt others: No Plan Physical Exam ED Vital Signs: Vital Signs - 24 hr 12/07/24 15:36 12/07/24 19:02 Temperature 97.7 F 97.7 F Pulse Rate 102 H 102 H Respiratory Rate 16 16 Blood Pressure 162/97 H 162/97 H Pulse Oximetry 96 96 Oxygen Delivery Method Room Air Room Air BMI result Body Mass Index 29.0 Const General: cooperative, no acute distress, alert and awake Nutritional Appearance: well nourished Orientation/consciousness: patient oriented x3 HENMT Head: Yes normal to inspection and Yes atraumatic Ears: hearing grossly normal bilaterally and external ears normal General nose exam: Normal external nose present, no nasal discharge noted and no epistaxis Face and sinus: Yes normal facial exam, No abrasion and No laceration Mouth: Normal oral and palatal mucosa present, no drooling and no muffled voice Eyes General: appearance normal, both eyes and all related structures Periorbital: periorbital findings normal Eyelids: Yes eyelids normal Conjunctivae: conjunctivae normal Pupils: Equal, round and reactive pupils present EOM: EOMs intact bilaterally Neck Neck: Yes normal visual inspection and Yes full ROM Resp Effort & Inspection: normal respiratory effort and able to speak in complete sentences Neuro General: patient oriented x3, moves all extremities and CN's II-XI intact bilaterally Cranial nerves: Yes Equal, round and reactive pupils present Cognition (Neuro): normal cognition Extrem Other: General: Yes full ROM and Yes capillary refill normal Psych Appearance: grossly normal Mental Status: mental status grossly normal Affect: normal affect Attitude: cooperative Thought process: Normal thought process present Thought content: Normal thought content present Insight: Good insight present (Psych) Course Course Course Narrative: Rapid medical examination performed in triage by Breonna Goldstein PA-C. Patient is a 69 year old assigned male at presenting to the emergency department with right great toe pain after steel plates fell on top of his right foot. Detailed physical exam and review of systems are deferred to the cigarette and filter chief inspector. Imaging ordered. Patient placed back in the waiting room pending room availability and results. Medications Administered Discontinued Medications Generic Name Dose Route Start Last Admin Trade Name Freq PRN Reason Stop Dose Admin Amoxicillin/Clavulanate Potassium 875 mg 12/07/24 17:55 12/07/24 18:01 Amoxicillin/Potassium Clav 875 Mg Tablet PO 12/07/24 17:56 875 mg ONCE ONE Administration Diphtheria/Tetanus/Acell Pertussis 0.5 ml 12/07/24 15:41 12/07/24 18:00 Diphth,Pertus(Acell),Tet Adult 0.5 Ml Syringe IM 12/07/24 15:42 0.5 ml .ONCE ONE Administration Procedures Orthopedic Fracture Reduction Fracture #1: Time Out Performed: Yes Side: right Fracture Reduction Location: toe (4th) Technique: direct manipulation Post Reduction X-rays Demonstrate: acceptable reduction Post-reduction neuro exam: intact Post-reduction vascular exam: intact Patient Tolerated Procedure: well Orthopedic Splinting/Casting Injury #1: Side: right Lower Extremity Injury Location: foot Lower Extremity Immobilizer: boot orthosis Other Orthopedic Equipment: crutches Medical Decision Making Medical Decision Making MDM Narrative: Patient is a 69 year old assigned male at with a history of CAD on ASA presenting to the emergency department today with right foot pain. Patient's physical exam was as noted in the physical exam portion of this note. Patient's right great toe nail was well adhered to the base of the nail bed and not at all loose. Patient's right foot x-ray showed an acute fracture of the 1st toe, 4th toe, and 5th toe with the 4th toe being displaced. I explained my physical exam findings as well as all test results to the patient and the patient's . I answered all questions asked by the patient and the patient's . Patient's right great toe was cleaned and dressed with a non-stick gauze, regular gauze, and webroll, without incident. Patient's toe tip was left visible and the patient was given strict instructions to ensure the skin remains pink and appropriate appearing and if that changes - to remove the dressing immediately. Patient's right 4th toe was reduced - without incident. Patient's repeat right foot x-ray confirmed reduction of the right 4th toe. Patient's PMS was intact prior to and after dressing and reduction. I spoke with the orthopedic team who agreed with the plan of having the patient placed in a short walking boot, being non weight bearing with crutches, antibiotic, and following up in their office. Patient's right foot was placed in a walking boot, without incident, per procedure note. Patient's PMS was intact prior to and after boot placement. Patent demonstrated proper use of crutches while in the department. I stressed the importance of the patient taking his medication as directed (either prescribed or as the over the counter packaging recommends). I stressed the importance of the patient following up with his primary care provider and the orthopedic team. I stressed the importance of the patient returning to the emergency department immediately if his symptoms were to worsen or if he were to develop any dizziness, shortness of breath, difficulty breathing, chest pain, blurry vision, loss of vision, nausea, vomiting, abdominal pain, fever, chills, back pain, or any other complaints. Patient and the patient's verbalized agreement and understanding with this treatment plan and discharge. Differential Diagnosis Differential Diagnoses: The differential diagnosis associated with the presentation includes Toe fractures Toe laceration Toe injury Admission/Observation Consideration of admission/observation: Escalation of care including admission/observation considered Patient would have been admitted to the hospital had his work up had any findings where hospital admission was appropriate and his clinical presentation warranted hospital admission. Consult Healthcare Provider Management of the patient was discussed with: Chief Mechanical Officer (spoke with the orthopedic team as noted in the MDM Rationale portion of this note. ) Independent Interpretation I performed an independent interpretation of an: Plain X-Ray Interpretation: My interpretation is in agreement with the radiologist's impression of these imaging studies. L CLINICAL HISTORY: pain, injury Radiographs of the right foot, 3 views Comparison: None available Findings: There is an obliquely oriented fracture through the 1st distal phalanx with up to 3 mm of displacement without intra-articular extension. There is a horizontally oriented fracture through the diaphysis of the 4th proximal phalanx with up to 3 mm lateral displacement of the distal fracture fragment. There is a fracture of the proximal metadiaphysis of the 5th proximal phalanx without significant displacement. No dislocation.Mild degenerative change. Calcaneal spur enthesophyte at the insertion of the Achilles tendon. Calcifications in the region of the plantar fascia. Soft tissue swelling. Impression: Fractures of the 1st distal phalanx and 4th and 5th proximal phalanges. This document has been electronically signed by: Jennifer Juan MD on 12/07/2024 16:37:39 Dictated By: Jennifer Moreno MD Signed By: Electronically signed by Jennifer Moreno MD 12/07/24 1638 CLINICAL HISTORY: post reduction, pain Radiographs of the right foot, 3 views Comparison: CR - XR FOOT RT MIN 3V - 12/07/24 16:06 EDT Findings: Interval reduction of the previously seen laterally displaced fracture of the 4th proximal phalanx. Residual lateral disc measures up to 1 mm which is unlikely to be clinically significant. Fracture of the 1st distal phalanx with up to 4 mm of displacement, previously 3 mm. Unchanged appearance of the fracture of the 5th proximal phalanx. No dislocation. Mild degenerative change. Calcifications in the region of the plantar fascia with a calcaneal spur and enthesophyte at the insertion of the Achilles tendon. Soft tissue swelling. Impression: Successful reduction of the fracture of the 4th proximal phalanx. No significant interval change to the fractures of the 1st distal and 5th proximal phalanges. This document has been electronically signed by: Jennifer Juan MD on 12/07/2024 18:40:45 Dictated By: Jennifer Moreno MD Signed By: Electronically signed by Jennifer Moreno MD 12/07/24 1841 Radiology Impression Discussion of test interpretation with radiology: I have reviewed the radiologist's reading. Independent Historian Clinical information obtained from an independent historian. History obtained from or confirmed by: Spouse (patient's provided additional history and confirmed the history provided by the patient. ) Critical Care Time Critical Care Time Critical Care Time: Yes Total Critical Care Time: 48 Attestation: I spent 48 minutes of Critical Care Time with this patient. This does not include time spent on separately reported billable procedures. Discharge Plan Discharge Clinical Impression: Fracture of toe, open Qualifiers: Encounter type: initial encounter Toe: great toe Phalanx: distal Fracture alignment: displaced Laterality: right Qualified Code(s): S92.421B - Displaced fracture of distal phalanx of right great toe, initial encounter for open fracture Closed fracture of toe Qualifiers: Encounter type: initial encounter Toe: lesser toe Phalanx: distal Fracture alignment: displaced Laterality: right Qualified Code(s): S92.531A - Displaced fracture of distal phalanx of right lesser toe(s), initial encounter for closed fracture Patient Disposition: Home, Self-Care Instructions: Crutch Instructions (ED), Toe Fracture (ED), Walking Boot (ED) Additional Instructions: Your right great, 4th, and 5th toes are broken/fractured. Today, I reduced (re- aligned) your 4th toe as it was displaced (not in anatomic alignment) without incident. It is crucial that when ambulating - you wear the walking boot as directed and that you remain non weight bearing on your right lower extremity until cleared to do so by the orthopedic team. Perform daily perfusion checks of your left great toe (we discussed this in the department - your right great toe color should remain pink and similar to your other toes), if you experience ANY skin changes, REMOVE THE DRESSING IMMEDIATELY AND PROCEED TO YOUR NEAREST EMERGENCY DEPARTMENT. Take your antibiotic as prescribed. Follow up with the orthopedic team. IF you are prescribed medications and/or you are taking over the counter medications - it is very important you continue to do so as prescribed / directed unless told otherwise. Follow up with your primary care provider. Return to the emergency department immediately if your symptoms worsen or if you develop any numbness, tingling, dizziness, shortness of breath, difficulty breathing, chest pain, blurry vision, loss of vision, nausea, vomiting, abdominal pain, fever, chills, back pain, or any other complaints. I provided a picture of your x-rays below. The image on the left is before we dressed your great toe and I reduced your 4th toe. The picture on the right is after we dressed your great toe and reduced your 4th toe. Please see the information below about our Patient Portal. If you are not yet enrolled in the [facility] Patient Portal, you will receive an enrollment email invitation following your visit to any [facility] care setting. You may also self-enroll in the Patient Portal by visiting our website: [email or web address] The following information is required to access the Patient Portal: - Your [facility] Medical Record Number - Your personal home email address (must match what is in your electronic medical record, Registration staff can assist with this) - Name - Date of Capabilities of the Patient Portal: - Message some providers - View upcoming appointments - Access your health summary, medical history, and visit history - View current conditions and allergies - View procedure and lab results - View your medications, including guidelines, side effects, and precautions - Complete pre-appointment questionnaires requested by your provider - Ready summary reports of your office visits and procedures To access the Patient Portal Mobile [employer], follow these directions: - Search [employer] in the Azalea Store or Google Play Store - Download the [employer]a - Search for [facility] - Enter your login/password Prescriptions: New amoxicillin-pot clavulanate 875-125 mg tablet 1 tab PO BID 7 Days Qty: 14 0RF No Action Repatha SureClick 140 mg/mL pen injector 140 mg subcut Q2W Qty: 2 5RF aspirin 81 mg tablet,delayed release (DR/EC) 81 mg PO DAILY Wegovy 0.25 mg/0.5 mL pen injector subcut metoprolol succinate 50 mg tablet extended release 24 hr 50 mg PO DAILY Qty: 90 3RF Referrals: [facility] [Provider Group] Referral Note: Call to establish and follow up with an geological specialist for your broken toes. Casimiro Thompson MD [Primary Care Provider, Internal Medicine] Interventions: ED Discharge Assessment Last Done: 12/07/24 19:02 Discharge Date/Time: 12/07/24 19:03 Print Language: Dominican
[2024-12-07] MEDS: Diphth,Pertus(ACell),Tet Adult 0.5 ML SYRINGE IM (18:00)
[2024-12-07 19:02] VITALS: BP 162/97; PULSE 102; RESP 16; TEMP 36.5; O2SAT 96
== END 2024-12-07 19:03 | disposition home or self-care (01) ==
PROVIDERS: Emergency Provider Emergency Medicine Emergency Medical Services; PCP Internal Medicine
DX: S92.421A Displaced fracture of distal phalanx of right great toe, initial encounter for closed fracture (principal); S92.531A Displaced fracture of distal phalanx of right lesser toe(s), initial encounter for closed fracture; S91.111A Laceration without foreign body of right great toe without damage to nail, initial encounter; M79.671 Pain in right foot; I25.10 Atherosclerotic heart disease of native coronary artery without angina pectoris; Y29.XXXA Contact with blunt object, undetermined intent, initial encounter; Y93.9 Activity, unspecified; Y92.9 Unspecified place or not applicable; Y99.8 Other external cause status; Z23 Encounter for immunization
CPT/HCPCS: 28515; 73630; 90471; 90715; 99283; 99284

== ENCOUNTER → 2024-12-07 15:41 | Outpatient (BNV) | payer MEDICARE, OTHER, SELFPAY | PROVIDERS: PCP Internal Medicine; Visit Provider Radiology Diagnostic Radiology | DX: S92.421A Displaced fracture of distal phalanx of right great toe, initial encounter for closed fracture (principal) | CPT/HCPCS: 73630 ==